=== PATIENT | female | born 1960 | race Two or more races ===

== ENCOUNTER → 2018-05-22 | Day surgery (SDC) | payer MEDICARE, OTHER ==
[~2018-05-22] VITALS: Ht 154.9 cm; Wt 69.9 kg
[~2018-05-22] MED LIST: ASPIR 8181 MG ORAL; Atropine Inj 1mg/10ml Syr IV PRN; BSS 15ml BTL ONE; BSS 500ml btl ONE; Bupivacaine 0.75% 30ml vial INJ ONE; D5 1/2NS 1,000 ML IV SCH; Dexamethasone 4mg/ml vial ONE; DiphenhydrAMINE 50mg/ml Inj IVP PRN; DiphenhydrAMINE 50mg/ml Inj ONE; EPINEPHrine 1mg/1ml Amp ONE; FAMOTIDINE20 MG ORAL; GABAPENTIN100 MG ORAL; HYDRALAZINE HCL50 MG ORAL; ISOSORBIDE MONO30 M1 PO; Insulin Human Regular 100units/ml 3ml IV SCH; Kenalog-10 5ml Inj ONE; Kenalog-40 1ml Vial ONE; LANTUS SOL100 UNIT/1 SUBQ; LOSARTAN POTASS50 MG ORAL; Labetalol 5mg/ml 20ml vial IV PRN; Lidocaine 2% MPF 5ml Vial INJ ONE; METHAZOLAMIDE50 MG ORAL; METOPROLOL TART50 M1 ORAL; Maxitrol Opth Oint 3.5gm ONE; Midazolam 2mg/2ml Inj IVP PRN; OCUFLOX5 ML RIGHT EYE; PANTOPRAZOLE SO40 MG ORAL; PREDNISOLONE ACE5 M1 RIGHT EYE; Povidone-Iodine 5% opth solution ONE; Pred Forte 1% Opth Susp 1ml ONE; Propofol 200mg/20ml IV ONE; RENA-VITE RX T1 EAC1 PO; RENVELA800 MG ORAL; Sodium Hyaluronate 10 mg/ml 0.85ml ONE; Tetracaine 0.5% Opth 4ml Soln ONE; VASCEPA1 GM PO; VELPHORO500 MG PO; VIGAMOX1 DROP RIGHT EYE; Vancomycin Intravitreal Inj IVITRE ONE; fentaNYL 100 mcg/2 mL IV PRN
--- NOTE | 2018-05-22 01:00 | Pre-op HX & Phy Repo 2 SIG ---
DATE OF ADMISSION: 05/22/2018 DATE OF SURGERY: 05/22/2018 PREOPERATIVE DIAGNOSIS: Endophthalmitis, right eye with vitreous opacification. BRIEF NOTE: This is a first [place] retinal admission for this patient, who is a very nice 57-year-old lady with a long and complicated ocular history involving diabetes, glaucoma, and diabetic retinopathy. PAST OCULAR HISTORY: Remarkable for bilateral cataract surgery in the past as well as previous tube shunt glaucoma surgery on the left. She had intravitreal injections in both eyes earlier this month and was seen to develop a significant hypopyon, intraocular pain, and vitreous opacification after the last Avastin injection. She presented at my office on 04/29/2018, which what appeared to be a significant endophthalmitis. Cultures were done as well as injection of intravitreal antibiotics. The anterior chamber reaction subsided nicely with clearing of the fibrin and hypopyon. Cultures were negative for infection, but did show what appeared to be white cells. She has had previous significant diabetic retinopathy with intraocular hemorrhaging and for this reason, is admitted for a vitrectomy to debulk the vitreous debris and to obtain additional cultures and possible reinjection of antibiotics. PAST MEDICAL HISTORY: Remarkable for renal failure and longstanding diabetes. MEDICATIONS: She is maintained on Velphoro 500 mg, losartan, SoloSTAR insulin, and famotidine as well as methazolamide. ALLERGIES: She has an allergy to penicillin. SOCIAL HISTORY: She does not smoke or drink. PHYSICAL EXAMINATION: Best vision at the time of the visit was bare light perception to no light perception in the right eye and hand motions in the left. The pressures were 14 and 12. The anterior segment on the right showed resorption of the hypopyon and most of the fibrin. Posterior chamber lens was seen in position. The left anterior segment was quiet. A valve was seen in place at the 2 o'clock position and lens implant noted. Fundus examination of the right eye was not possible because of severe vitreous opacification. The left eye similarly could not be seen because of vitreous debris. An ultrasound done on the right eye revealed mobile vitreous debris. The retina appeared attached without mass. ASSESSMENT: 1. Severe proliferative diabetic retinopathy, both eyes. 2. Status post purulent endophthalmitis, right eye. 3. Pseudophakia, both eyes. 4. History of glaucoma. PLAN: The plan is to perform a pars plana vitrectomy with exploration of endolaser as needed on the right. Cultures will be obtained and a decision will be made whether or not to reinject intravitreal antibiotics. The risks and benefits of surgery were gone over with the patient including potential for infection, inability to control infection, retinal detachment formation, the discovery of severe ocular ischemia, which may limit any visual recovery, and the possibility of loss of the eye. The risk of anesthesia was discussed. The patient understands and consents to the surgery, which will be performed on tomorrow morning. Clayton Sneed M.D. DR: ROBB JOB#: [id number] CC:
--- NOTE | 2018-05-22 06:35 | Anethesia Preoperative Eval ---
Anesthesia Pre-op PMH/ROS General Date of Evaluation: May 22, 2018 Time of Evaluation: 06:32 Anesthesiologist: sandi ASA Score: ASA 4 Mallampati Score Class I : Soft palate, uvula, fauces, pillars visible Class II: Soft palate, uvula, fauces visible Class III: Soft palate, base of uvula visible Class IV: Only hard plate visible Mallampati Classification: Class II Surgeon: nichol Diagnosis: endopthamitis od Surgical Procedure: pars plana vitrectomy w/ exploration endolaser Anesthesia History: none Family History: no anesthesia problems Allergies: Coded Allergies: PENICILLINS (Unverified Allergy, Unknown, 05/17/18) Medications: see eMAR Past Medical History Gastrointestinal/Genitourinary: Reports: CRI Endocrine: Reports: DM HEENT: Reports: cataract (L), cataract (R), glaucoma, other - diabetic retinopathy PSxH Narrative: bilateral cataract sx, left tube shunt glaucoma sx Anesthesia Pre-op Phys. Exam Physician Exam Last Vital Signs Date Time Temp Pulse Resp B/P (MAP) Pulse Ox O2 Delivery O2 Flow Rate FiO2 05/22/18 07:36 Room Air 05/22/18 06:52 97.0 65 20 165/72 (103) 97 97.0 Neurologic: CN 2-12 intact Cardiovascular: RRR Respiratory: CTA Gastrointestinal: S/NT/ND Airway Exam Mallampati Score: Class II MO: limited Neck: short TMD: 2fb ROM: limited Anesthesia Pre-op A/P Labs Labs Test 05/22/18 07:12 05/22/18 09:00 White Blood Count 6.4 K/UL (4.8-10.8) Red Blood Count 4.51 M/UL (4.20-5.40) Hemoglobin 13.0 G/DL (12.0-16.0) Hematocrit 41.1 % (37.0-47.0) Mean Corpuscular Volume 91 FL (80-99) Mean Corpuscular Hemoglobin 28.8 PG (27.0-31.0) Mean Corpuscular Hemoglobin Concent 31.6 G/DL (32.0-36.0) Red Cell Distribution Width 14.9 % (11.6-14.8) Platelet Count 106 K/UL (150-450) Mean Platelet Volume 10.0 FL (6.5-10.1) Neutrophils (%) (Auto) 76.0 % (45.0-75.0) Lymphocytes (%) (Auto) 10.0 % (20.0-45.0) Monocytes (%) (Auto) 8.0 % (1.0-10.0) Eosinophils (%) (Auto) 4.5 % (0.0-3.0) Basophils (%) (Auto) 1.4 % (0.0-2.0) Sodium Level 139 MMOL/L (136-145) Potassium Level 6.1 MMOL/L (3.5-5.1) Chloride Level 99 MMOL/L (98-107) Carbon Dioxide Level 35 MMOL/L (21-32) Anion Gap 5 mmol/L (5-15) Blood Urea Nitrogen 51 mg/dL (7-18) Creatinine 6.3 MG/DL (0.55-1.30) Estimat Glomerular Filtration Rate 6.9 mL/min (>60) Glucose Level 172 MG/DL (74-106) Calcium Level 10.1 MG/DL (8.5-10.1) Risk Assessment & Plan Assessment: asa4 Plan: patient is hyperkalemic. must be optimized prior to procedure Status Change Before Surgery: No Pre-Antibiotics Drug: Gale Estrella MD May 22, 2018 06:35
[2018-05-22] MEDS: Cyclopentolate 1% Opth Sol 2ml RIGHT EYE SCH ×3 (06:49→07:32)
[2018-05-22] MEDS: Vigamox Opth Soln 3ml RIGHT EYE SCH ×3 (06:50→07:33)
[2018-05-22] MEDS: Phenylephrine 2.5% Op 2ml Soln RIGHT EYE SCH ×3 (06:50→07:32)
[2018-05-22] MEDS: Flurbiprofen 0.03% Opth Sol 2.5ml RIGHT EYE SCH ×3 (06:50→07:33)
[2018-05-22 06:52] VITALS: BP 165/72
[2018-05-22 07:31] LABS: BASOPHILS % (AUTO) 1.4 % (0.0-2.0); EOSINOPHILS % (AUTO) 4.5 % (0.0-3.0); HEMATOCRIT 41.1 % (37.0-47.0); MEAN CORPUSCULAR VOLUME 91 FL (80-99); PLATELET COUNT 106 K/UL (150-450); RED BLOOD COUNT 4.51 M/UL (4.20-5.40); RED CELL DISTRIBUTION WIDTH 14.9 % (11.6-14.8); WHITE BLOOD COUNT 6.4 K/UL (4.8-10.8)
[2018-05-22 07:35] LABS: ANION GAP 5 mmol/L (5-15); BLOOD UREA NITROGEN 51 mg/dL (7-18); CALCIUM 10.1 MG/DL (8.5-10.1); CARBON DIOXIDE 35 MMOL/L (21-32); CHLORIDE 99 MMOL/L (98-107); CREATININE 6.3 MG/DL (0.55-1.30); SODIUM 139 MMOL/L (136-145)
[2018-05-22 07:36] LABS: POTASSIUM 6.1 MMOL/L (3.5-5.1)
--- NOTE | 2018-05-22 08:38 | Pre-Procedure Note/Attestation ---
Pre-Procedure Note/Attestation Complete Prior to Procedure Planned Procedure: right Procedure Narrative: PPV, cultures, intravitreal antibiotics, possible endolaser Right eye Indications for Procedure Pre-Operative Diagnosis: Endophthalmitis Right eye with vitreous opacification Attestation I attest that I discussed the nature of the procedure; its benefits; risks and complications; and alternatives (and the risks and benefits of such alternatives ), prior to the procedure, with the patient (or the patient's legal maintenance representative). I attest that, if there was a reasonable possibility of needing a blood transfusion, the patient (or the patient's legal maintenance representative) was given the [facility] standardized written summary, pursuant to the [place] Blood Safety Act ([place] Health and Safety Code # 1645, as amended). I attest that I re-evaluated the patient just prior to the surgery and that there has been no change in the patient's H&P, except as documented below: ELIZABETH WOLF May 22, 2018 08:38
--- NOTE | 2018-05-22 14:53 | Cardiology Report ---
APPROVED REPORT EKG Measurement Heart [id number] Normal sinus rhythm Left axis deviation Abnormal ECG
--- NOTE | 2018-05-29 17:45 | Pre-op HX & Phy Repo 2 SIG ---
DATE OF ADMISSION: 05/22/2018 NOTE: "POOR AUDIO QUALITY" REASON FOR EVALUATION: I was asked by Dr. Clayton Sneed to see this 57-year-old Ecuadorean-speaking female going for elective surgery on the right eye for endophthalmitis of the right eye. Please see history and physical by Dr. Clayton Sneed. The patient was evaluated. Chart was reviewed. The information was obtained from at bedside. PAST MEDICAL HISTORY AND REVIEW OF SYSTEMS: Remarkable for history of: 1. Diabetes mellitus, on insulin. 2. History of end-stage renal disease. The patient is on hemodialysis and last dialysis was done on 05/21/2018. 3. The patient has history of hypertension. 4. GERD. The patient denies history of chest pain, palpitation, or heart attack. Denies history of respiratory problem, asthma, or bronchitis. No history of GI bleeding. No history of thyroid problem or anemia. No hepatitis. PAST SURGICAL HISTORY: Hysterectomy for fibroids many years ago and has a shunt in the left hand. PRESENT MEDICATIONS: Baby aspirin, insulin, losartan, hydralazine, Pepcid, gabapentin, isosorbide, metoprolol, eyedrops, vitamin B complex, and . ALLERGIES: Penicillin and pollen causing allergic sinusitis. FAMILY HISTORY: Father was an alcoholic. Mother had diabetes mellitus. HABITS: No history of smoke or alcohol habit. No street drugs. PHYSICAL EXAMINATION: GENERAL: Alert, well-developed, well-nourished female in her 50s. VITAL SIGNS: Weight 70 kg, 5 feet 4 inches, BMI is 29.2 kg/m2. Blood pressure 165/72, temperature 97, pulse 65, respirations 20, and O2 saturation 97%. SKIN: Dry, pale, and warm. No rashes. LYMPH NODES: Not enlarged. HEENT: Head normocephalic. Ears clear, no discharge. Eyes, full description per Dr. Clayton Sneed. Mouth, clear and moist, no dentures, no discharge. NECK: Supple. No jugular venous distention. Carotids artery +2. Trachea midline. CHEST: No deformity or asymmetry. LUNGS: Clear to auscultation and percussion. No rales or rhonchi. HEART: Rate 65 and regular. No ectopy. No murmur. No S3 or S4. ABDOMEN: Soft. Benign. Liver and spleen are not enlarged. No palpable mass. No rebound. EXTREMITIES: No edema. No calf tenderness. Left arm AV shunt for dialysis. GENITOURINARY TRACT: No dysuria. The patient is on hemodialysis. NERVOUS SYSTEM: No asymmetry. No tremor. No nystagmus. DIAGNOSTIC DATA: ECG, normal sinus rhythm, 62 per minute, left axis deviation, ST-T wave abnormality, consider lateral ischemia. Fasting blood sugar . Potassium 6.1. The patient did not eat or drink from last night. To control the potassium level, the patient was given insulin regular 5 units IV push and IV changed to D5, also Lasix 20 mg IV push. IMPRESSION: 1. Endophthalmitis, right eye. 2. Hypertension. 3. Insulin-dependent diabetes mellitus. 4. Hyperkalemia. Rechecked potassium level in 40 minutes, level was 5.8. level was cancelled by myself and anesthesiologist. The patient . Thank you very much Dr. Sneed for privilege to participate in presurgical care of this interesting patient. Andrea Newberry M.D. DR: KULDIP JOB#: [id number] CC:
== END | disposition home or self-care (01) ==
LOC: SUR 06:14 → SDS 06:15 → EDSTATUS 08:30 → SUR 11:11
DX: H44.001 Unspecified purulent endophthalmitis, right eye (principal); Z53.09 Procedure and treatment not carried out because of other contraindication; E87.5 Hyperkalemia; E11.319 Type 2 diabetes mellitus with unspecified diabetic retinopathy without macular edema; Z88.0 Allergy status to penicillin; E11.3593 Type 2 diabetes mellitus with proliferative diabetic retinopathy without macular edema, bilateral; Z96.1 Presence of intraocular lens
CPT/HCPCS: 36415; 80048; 82962; 84132; 85025; 93005; J1815; J1940

== ENCOUNTER 2018-12-25 06:09 | Day surgery (SDC) | payer MEDICARE, OTHER ==
--- NOTE | 2018-12-24 17:45 | Pre-op HX & Phy Repo 2 SIG ---
DATE OF ADMISSION: 12/25/2018 DATE OF SURGERY: 12/25/2018 PREOPERATIVE DIAGNOSIS: Vitreous hemorrhage with posterior traction, left eye. BRIEF NOTE: This is the second [place] admission for the patient who is a very nice and unfortunate 58-year-old lady with longstanding severe proliferative diabetic retinopathy. Her past ocular history is remarkable for extensive laser treatment in both eyes and a prior valve placements in either eye for secondary glaucoma. She developed an endophthalmitis in the right eye after a prior surgery last year and underwent intravitreal injections on a subsequent vitrectomy, but we were unable to get reasonable vision back and this eye progressed in no light perception and hypotony. She had previous cataract and valve surgery in the right eye. She has a chronic vitreous hemorrhage with preretinal fibrosis, which is obscuring her vision. After a lengthy discussion with the family, it was felt that her best chance for some visual improvement would be a vitrectomy on the left with possible silicone oil placement. PAST MEDICAL HISTORY: Remarkable for severe diabetes present since 1994. She is also on dialysis. CURRENT MEDICATIONS: Include, Combigan, Systane gel, moxifloxacin, Velphoro, losartan, and Lantus. She is also on famotidine and methazolamide. ALLERGIES: She has an allergy to penicillin. PHYSICAL EXAMINATION: Best vision, there is no light perception in the right eye. Counting fingers at 2 feet in the left with pressures of 1 and 16. The anterior segment on the right showed an amaurotic pupil and residual hyphema roughly 5%. The left showed a reasonably clear anterior segment. Posterior chamber lenses were seen in either eye. Fundus on the right eye could not be seen. The left showed extensive preretinal fibrosis and chronic old vitreous debris and strands. B-Scan done on the left eye showed the retina to be essentially attached. There was a focal point of traction and attachment nasal to the optic nerve. General physical examination will be updated by Dr. Newberry. ASSESSMENT: Severe proliferative diabetic retinopathy, left eye with traction. PLAN: The plan is to perform a pars plana vitrectomy with membrane dissection, endolaser, and possible silicone oil and gas injection in the left eye if the patient can tolerate general anesthesia. She was not doing well with local sedation because of severe anxiety. The risks and benefits of surgery were gone over the patient with potential infection, recurrent detachment, hemorrhage, glaucoma, and the possibility of loss of the eye. The risk of anesthesia was also discussed and will be reiterated by the anesthesiologist. The patient understands and consents to surgery, which will be performed on tomorrow morning. Clayton Sneed M.D. DR: MARIAM JOB#: [id number] CC:
[2018-12-25] VITALS (11 sets, daily range): BP systolic 136–156; BP diastolic 60–71
[~2018-12-25] VITALS: Ht 154.9 cm; Wt 67.6 kg
[~2018-12-25 06:09] MED LIST changes: -Atropine Inj 1mg/10ml Syr IV PRN; -BSS 15ml BTL ONE; -BSS 500ml btl ONE; -Bupivacaine 0.75% 30ml vial INJ ONE; -D5 1/2NS 1,000 ML IV SCH; -Dexamethasone 4mg/ml vial ONE; -DiphenhydrAMINE 50mg/ml Inj IVP PRN; -DiphenhydrAMINE 50mg/ml Inj ONE; -EPINEPHrine 1mg/1ml Amp ONE; -Insulin Human Regular 100units/ml 3ml IV SCH; -Kenalog-10 5ml Inj ONE; -Kenalog-40 1ml Vial ONE; -Labetalol 5mg/ml 20ml vial IV PRN; -Lidocaine 2% MPF 5ml Vial INJ ONE; -Maxitrol Opth Oint 3.5gm ONE; -Midazolam 2mg/2ml Inj IVP PRN; -Povidone-Iodine 5% opth solution ONE; +Pred Forte 1% Opth Susp 1ml LEFT EYE SCH; -Pred Forte 1% Opth Susp 1ml ONE; -Propofol 200mg/20ml IV ONE; -Sodium Hyaluronate 10 mg/ml 0.85ml ONE; -Tetracaine 0.5% Opth 4ml Soln ONE; -Vancomycin Intravitreal Inj IVITRE ONE; -fentaNYL 100 mcg/2 mL IV PRN
[2018-12-25] MEDS ORDERED: EPINEPHrine 1mg/1ml Amp ONE (07:14)
[2018-12-25] MEDS ORDERED: Lidocaine 2% MPF 5ml Vial INJ ONE (07:14)
[2018-12-25] MEDS ORDERED: Maxitrol Opth Oint 3.5gm ONE (07:15)
[2018-12-25] MEDS ORDERED: Kenalog-40 1ml Vial ONE (07:15)
[2018-12-25] MEDS ORDERED: Tetracaine 0.5% Opth 4ml Soln ONE (07:15)
[2018-12-25] MEDS ORDERED: Bupivacaine 0.75% 30ml vial INJ ONE (07:15)
[2018-12-25] MEDS ORDERED: BSS 500ml btl ONE (07:15)
[2018-12-25] MEDS ORDERED: Kenalog-10 5ml Inj ONE (07:15)
[2018-12-25] MEDS ORDERED: BSS 15ml BTL ONE (07:15)
[2018-12-25] MEDS ORDERED: Pred Forte 1% Opth Susp 1ml ONE (07:15)
[2018-12-25] MEDS ORDERED: Povidone-Iodine 5% opth solution ONE (07:15)
[2018-12-25] MEDS ORDERED: Sodium Hyaluronate 10 mg/ml 0.85ml ONE (07:15)
[2018-12-25] MEDS ORDERED: Dexamethasone 4mg/ml vial ONE (07:15)
--- NOTE | 2018-12-25 08:01 | Pre-Procedure Note/Attestation ---
Pre-Procedure Note/Attestation Complete Prior to Procedure Planned Procedure: left Procedure Narrative: PPV, peel, laser, possible silicone oil Left eye Indications for Procedure Pre-Operative Diagnosis: Poor vision L eye. Heme and traction Attestation I attest that I discussed the nature of the procedure; its benefits; risks and complications; and alternatives (and the risks and benefits of such alternatives ), prior to the procedure, with the patient (or the patient's legal pharmacy sales representative). I attest that, if there was a reasonable possibility of needing a blood transfusion, the patient (or the patient's legal pharmacy sales representative) was given the [place] [facility] of [facility] Services standardized written summary, pursuant to the [place] Blood Safety Act ([place] Health and Safety Code # 1645, as amended). I attest that I re-evaluated the patient just prior to the surgery and that there has been no change in the patient's H&P, except as documented below: Clayton Sneed MD Dec 25, 2018 08:00
[2018-12-25] MEDS: Phenylephrine 2.5% Op 2ml Soln LEFT EYE SCH ×3 (08:08→08:40)
[2018-12-25] MEDS: Cyclopentolate 1% Opth Sol 2ml LEFT EYE SCH ×3 (08:08→08:39)
[2018-12-25] MEDS: Vigamox Opth Soln 3ml LEFT EYE SCH ×3 (08:09→08:40)
[2018-12-25] MEDS: Flurbiprofen 0.03% Opth Sol 2.5ml LEFT EYE SCH ×3 (08:09→08:40)
[2018-12-25] MEDS ORDERED: fentaNYL 100 mcg/2 mL IV ONE (08:12)
[2018-12-25] MEDS ORDERED: Midazolam 2mg/2ml Inj ONE (08:12)
[2018-12-25 08:35] LABS: BASOPHILS % (AUTO) 1.3 % (0.0-2.0); EOSINOPHILS % (AUTO) 8.1 % (0.0-3.0); HEMATOCRIT 39.2 % (37.0-47.0); HEMOGLOBIN 12.7 G/DL (12.0-16.0); LYMPHOCYTES % (AUTO) 14.4 % (20.0-45.0); MEAN CORPUSCULAR VOLUME 97 FL (80-99); MONOCYTES % (AUTO) 7.5 % (1.0-10.0); NEUTROPHILS % (AUTO) 68.7 % (45.0-75.0); PLATELET COUNT 137 K/UL (150-450); RED BLOOD COUNT 4.05 M/UL (4.20-5.40); RED CELL DISTRIBUTION WIDTH 12.7 % (11.6-14.8); WHITE BLOOD COUNT 5.9 K/UL (4.8-10.8)
[2018-12-25 08:44] LABS: ANION GAP 8 mmol/L (5-15); BLOOD UREA NITROGEN 46 mg/dL (7-18); CALCIUM 10.1 MG/DL (8.5-10.1); CARBON DIOXIDE 31 MMOL/L (21-32); CHLORIDE 101 MMOL/L (98-107); CREATININE 5.5 MG/DL (0.55-1.30); POTASSIUM 5.5 MMOL/L (3.5-5.1); SODIUM 140 MMOL/L (136-145)
[2018-12-25] MEDS ORDERED: Propofol 200mg/20ml IV ONE (09:00)
[2018-12-25] MEDS ORDERED: NS Irrig 1000ml ONE (09:00)
[2018-12-25] MEDS ORDERED: Sterile Water Irrig 1000ml IRRIG ONE (09:00)
--- NOTE | 2018-12-25 09:53 | Anethesia Preoperative Eval ---
Anesthesia Pre-op PMH/ROS General Date of Evaluation: Dec 25, 2018 Time of Evaluation: 08:42 Anesthesiologist: Patty ASA Score: ASA 3 Mallampati Score Class I : Soft palate, uvula, fauces, pillars visible Class II: Soft palate, uvula, fauces visible Class III: Soft palate, base of uvula visible Class IV: Only hard plate visible Mallampati Classification: Class II Surgeon: Nedra Diagnosis: L eye vitreous hemorrhage Surgical Procedure: L eye PPV laser treatment Anesthesia History: none Family History: no anesthesia problems Allergies: Coded Allergies: PENICILLINS (Unverified Allergy, Unknown, 05/17/18) Medications: see eMAR Patient NPO?: Yes Past Medical History Cardiovascular: Reports: HTN; Denies: CAD, [place], valve dz, arrhythmia, other Pulmonary: Denies: asthma, COPD, RACHELLE, other Gastrointestinal/Genitourinary: Reports: GERD, ESRD - on HD; Denies: CRI, other Neurologic/Psychiatric: Reports: depression/anxiety; Denies: dementia, CVA, TIA, other Endocrine: Reports: DM - on insulin HEENT: Reports: cataract (L), cataract (R) - s/p Sx; Denies: glaucoma, CHEVAK (L), CHEVAK (R), other Hematology/Immune: Reports: anemia; Denies: DVT, bleeding disorder, other Musculoskeletal/Integumentary: Reports: DJD; Denies: OA, RA, DDD, edema, other Other: other - overweight PMH Narrative: as above PSxH Narrative: Hysterectomy, bilateral cataracts retinal Sx Anesthesia Pre-op Phys. Exam Physician Exam Last Vital Signs Date Time Temp Pulse Resp B/P (MAP) Pulse Ox O2 Delivery O2 Flow Rate FiO2 12/25/18 08:12 Room Air 12/25/18 08:00 97.7 53 20 150/60 97 Constitutional: NAD Neurologic: CN 2-12 intact Cardiovascular: RRR, no M/R/G Respiratory: CTA Gastrointestinal: S/NT/ND Airway Exam Mallampati Score: Class II MO: limited Neck: short ROM: limited Teeth: missing Dentures: no upper, no lower Anesthesia Pre-op A/P Labs Hematology Test 12/25/18 08:23 White Blood Count 5.9 K/UL (4.8-10.8) Red Blood Count 4.05 M/UL (4.20-5.40) L Hemoglobin 12.7 G/DL (12.0-16.0) Hematocrit 39.2 % (37.0-47.0) Mean Corpuscular Volume 97 FL (80-99) Mean Corpuscular Hemoglobin 31.3 PG (27.0-31.0) H Mean Corpuscular Hemoglobin Concent 32.3 G/DL (32.0-36.0) Red Cell Distribution Width 12.7 % (11.6-14.8) Platelet Count 137 K/UL (150-450) L Mean Platelet Volume 8.7 FL (6.5-10.1) Neutrophils (%) (Auto) 68.7 % (45.0-75.0) Lymphocytes (%) (Auto) 14.4 % (20.0-45.0) L Monocytes (%) (Auto) 7.5 % (1.0-10.0) Eosinophils (%) (Auto) 8.1 % (0.0-3.0) H Basophils (%) (Auto) 1.3 % (0.0-2.0) Chemistry Test 12/25/18 08:23 Sodium Level 140 MMOL/L (136-145) Potassium Level 5.5 MMOL/L (3.5-5.1) H Chloride Level 101 MMOL/L (98-107) Carbon Dioxide Level 31 MMOL/L (21-32) Anion Gap 8 mmol/L (5-15) Blood Urea Nitrogen 46 mg/dL (7-18) H Creatinine 5.5 MG/DL (0.55-1.30) H Estimat Glomerular Filtration Rate 8.0 mL/min (>60) Glucose Level 110 MG/DL (74-106) H Calcium Level 10.1 MG/DL (8.5-10.1) Accucheck 119 at admission Studies Pre-op Studies: EKG - SR Risk Assessment & Plan Assessment: ASA 3 Plan: GA with LMA surgeon request Status Change Before Surgery: No Pre-Antibiotics Drug: none Cisco Brambila MD Dec 25, 2018 09:53
[2018-12-25] MEDS ORDERED: fentaNYL 100 mcg/2 mL IV PRN (10:00)
--- NOTE | 2018-12-25 10:29 | Brief Operative Note ---
Immediate Post Operative Note Operative Note Chief Complaint: Clouds in vision L eye Pre-op Diagnosis: Poor vision L eye. Heme and traction Procedure: PPV, membrane peel, Endolaser 2422 spots, endocautery L eye Post-op Diagnosis: Same as preop Post-op Diagnosis: same as pre-op Surgeon: nichol Anesthesiologist: Patty Anesthesia: general Specimen: none Complications: none Condition: stable Fluids: Per anesthesia Estimated Blood Loss: none Drains: none Implant(s) used?: No Clayton Sneed MD Dec 25, 2018 10:29
--- NOTE | 2018-12-25 10:31 | Immediate Post-Op Evaluation ---
Immediate Post-Op Evalulation Immediate Post-Op Evalulation Procedure: L eye PPV, membrane peel laser treatment Date of Evaluation: Dec 25, 2018 Time of Evaluation: 10:30 IV Fluids: 300 Blood Products: none Estimated Blood Loss: min Urinary Output: none Blood Pressure Systolic: 137 Blood Pressure Diastolic: 64 Pulse Rate: 68 Respiratory Rate: 20 O2 Sat by Pulse Oximetry: 99 Temperature (Fahrenheit): 97.7 Pain Score (1-10): 1 Nausea: No Vomiting: No Complications none Patient Status: reacts, patent, none Hydration Status: adequate Cisco Brambila MD Dec 25, 2018 10:31
--- NOTE | 2018-12-25 12:00 | NUR ---
No urine output noted. Patient has anuria secondary renal failure and on hemodialysis 3x a week.
--- NOTE | 2018-12-25 15:15 | Cardiology Report ---
APPROVED REPORT EKG Measurement Heart [id number] Sinus bradycardia Abnormal ECG
--- NOTE | 2018-12-25 17:01 | Pre-op HX & Phy Repo 2 SIG ---
DATE OF ADMISSION: 12/25/2018 PRESURGICAL INTERNAL MEDICINE HISTORY AND PHYSICAL: REASON FOR EVALUATION: I was asked by Dr. Clayton Sneed to see this 58-year-old female, who is going for elective surgery on the left eye. The patient has vitreous hemorrhage, left eye. Please see full Ophthalmology History and Physical by Dr. Clayton Sneed. The patient was evaluated and chart was reviewed at [facility] outpatient surgery department. The patient is Emirati-speaking and has a help from her at bedside. PAST MEDICAL HISTORY: Remarkable for hypertension; diabetes mellitus, insulin dependent; end-stage renal disease, on hemodialysis, last dialysis yesterday 12/24/2018. The patient is on dialysis for the last 4 years. Peripheral neuropathy, diabetic both feet dermatitis stasis. No productive cough, bronchitis. History of anemia. No history of chest pain, palpitation, or heart attack. History of thyroid problem non treated. Denies history of stomach problem. No hepatitis. Some stomach acid reflux. PAST SURGICAL HISTORY: Hysterectomy, eye surgery last year, appendectomy. FAMILY HISTORY: Father from liver cirrhosis from alcoholism and mother had diabetes mellitus. ALLERGIES: To penicillin, itching, rashes. PRESENT MEDICATIONS: Lantus 16 units in the evening, losartan 50 mg daily, hydralazine 50 mg, metoprolol 50 mg, Marlene-Titus, pantoprazole 40 mg, baby aspirin 81 mg daily, eye drops, Tylenol, Motrin p.r.n. HABITS: The patient denies history of alcohol or smoking. The patient is also taking gabapentin p.r.n. PHYSICAL EXAMINATION: GENERAL: The patient is alert 58-year-old female. Weight 157 pounds and 5 feet 1 inch tall. BMI is 28.2. VITAL SIGNS: Blood pressure 150/60, temperature 97.7, pulse 55, respirations 20, O2 saturation 97%. SKIN: Warm to touch. Both feet and ankle venous status dermatitis. No ulcers or rashes. HEENT: Head normocephalic. Ears clear. No discharge. Eyes, full description per Dr. Clayton Sneed. Mouth has dentures upper and lower. Mucous moist, clear. Tongue midline. NECK: Supple. No jugular venous distention. Carotids artery +2. Trachea in the midline. CHEST: Mild kyphosis. LUNGS: Clear to auscultation. No rales or rhonchi. HEART: Regular rate, 55. No ectopy. No murmur. No S3 or S4. ABDOMEN: Soft. Obese. Liver, spleen not enlarged. EXTREMITIES: No edema. No calf tenderness. Stasis dermatitis both feet and ankle. GENITOURINARY TRACT: The patient is on dialysis and post hysterectomy. CVA nontender. NERVOUS SYSTEM: Peripheral diabetic neuropathy. No tremor or nystagmus. The patient has AV shunt of the left brachial. DIAGNOSTIC DATA: ECG, sinus bradycardia 56 per minute, ST-T wave abnormality. Consider lateral ischemia. LABORATORY DATA: Fast blood sugar, fingerstick 101. White blood cells, 5.9, hemoglobin 12.7, hematocrit 39.2. Sodium 140, potassium 5.5, chloride 101, BUN 46, creatinine 5.5, glucose 110, and calcium 10.1. IMPRESSION: 1. Vitreous hemorrhage, left eye. 2. Hypertension. 3. Insulin-dependent diabetes mellitus. 4. End-stage renal disease, on dialysis, last yesterday 12/24/2018. 5. Peripheral diabetic neuropathy. 6. Both feet and ankle stasis dermatitis. 7. Hyperkalemia. 8. Sinus bradycardia with ST-T wave abnormality and lateral ischemia. The patient did not eat or drink from last night. PLAN: Pars plana membrane peel, silicone oil injection, left eye per Dr. Clayton Sneed. CONCLUSION: The patient is a 58-year-old female, blind has multiple medical problems include insulin-dependent diabetes mellitus, EKG changes, history of hypertension. The patient dialyzed yesterday. Potassium still 5.5, which will be acceptable for surgery. The patient did not eat or drink from last night. The patient's condition optimized for surgery. Thank you very much, Dr. Sneed, for privilege to participate in presurgical care of this interesting patient. Andrea Newberry M.D. DR: DWIGHT JOB#: [id number] CC:
[2018-12-25] MEDS ORDERED: HYDROcodone/Acetamin 5/325 tab ORAL PRN (18:01)
--- NOTE | 2018-12-25 19:01 | Operative Note - Dictated ---
DATE OF OPERATION: 12/25/2018 PREOPERATIVE DIAGNOSIS: Vitreous hemorrhage with traction, left eye. POSTOPERATIVE DIAGNOSIS: Vitreous hemorrhage with traction, left eye. PROCEDURES: 1. Pars plana vitrectomy. 2. Membrane peel. 3. Endo cautery. 4. Endolaser, left eye. SURGEON: Clayton Sneed M.D. ICT SUPPORT TECHNICIANS: None. ANESTHESIA: LMA general. ANESTHESIOLOGIST: Cisco Brambila M.D. JUSTIFICATION FOR SURGERY: This 58-year-old lady with a long history of severe proliferative retinopathy has complained of clouds in the vision of her left eye for some time. She has a nonclearing vitreous hemorrhage with traction. BRIEF NOTE: The patient was brought to the operating room and placed on operating room table in supine position. After a time-out was performed and agreed upon by the staff, general LMA anesthesia was induced by Dr. Brambila. Retrobulbar and Van Lint blocks were then given to the left eye to limit intraoperative anesthesia and postoperative pain. She was then prepped and draped in normal manner. A lid speculum was inserted into the left eye. Using a 23-gauge trocar system, cannulas were placed in all except infranasal quadrant. Infusion secured inferotemporally. Vitrectomy was begun posterior to the lens implant. A dense, white cloudy vitreous was removed initially. A central core vitrectomy was done followed by peripheral vitrectomy leaving a small vitreous skirt. Membranous attachments to the retina were noted along the inferior to the optic nerve, outside of the arcades and along the supratemporal arcade at two to three sites. These areas were gently dissected and lifted clear with gentle suction and the vitreous cutter. Small bleeders were controlled with Endo cautery. Vitrectomy was carried further peripherally leaving a very small vitreous skirt. Scleral depression showed no peripheral breaks, tears, or detachment. The retina appeared to have no prior laser treatment. The endolaser was brought into the eye and a power of 0.3 staples, duration 0.2 seconds, a total of 2422 lesions were applied in a broad area extending from outside the arcades to the pars plana. Areas of traction were surrounded with at least three rows of laser. The macula was noted to be completely flat without posterior lifted. The nerve showed some cupping and pallor, but otherwise was benign. At the conclusion of this maneuver, the pressure was lowered and no oozing was seen from any of the previously cauterized vessels. The cannulas were removed from the eye superiorly and each wound closed with 8-0 Vicryl suture with the knots buried. The eye was inflated and the inferotemporal infusion cannula was removed and this wound was closed in a similar fashion. Subconjunctival Decadron and gentamicin were then injected inferiorly and topical atropine drops, prednisolone drops, Vigamox drops, and Maxitrol ointment were instilled. The eye was patched and shielded, and the patient was taken to Recovery in excellent condition. There were no complications. Clayton Sneed M.D. DR: RAUL JOB#: [id number] CC: Clayton Sneed M.D.; Fax#: [phone]
== END 2018-12-25 12:10 | disposition home or self-care (01) ==
LOC: SUR 06:09
DX: H43.12 Vitreous hemorrhage, left eye (principal); H43.822 Vitreomacular adhesion, left eye; E11.3592 Type 2 diabetes mellitus with proliferative diabetic retinopathy without macular edema, left eye; E11.22 Type 2 diabetes mellitus with diabetic chronic kidney disease; N18.6 End stage renal disease; Z99.2 Dependence on renal dialysis; E11.40 Type 2 diabetes mellitus with diabetic neuropathy, unspecified; Z79.4 Long term (current) use of insulin; I87.2 Venous insufficiency (chronic) (peripheral); K21.9 Gastro-esophageal reflux disease without esophagitis; F32.9 Major depressive disorder, single episode, unspecified; F41.9 Anxiety disorder, unspecified; D64.9 Anemia, unspecified; M19.90 Unspecified osteoarthritis, unspecified site; E66.3 Overweight; E87.5 Hyperkalemia; R00.1 Bradycardia, unspecified; Z90.710 Acquired absence of both cervix and uterus
CPT/HCPCS: 36415; 67042; 80048; 82962; 85025; 93005; J0171; J1100; J2250; J2704; J3010; J3470; J3490; 94003; 94150

== ENCOUNTER 2019-01-06 06:47 | Inpatient (IN) | payer MEDICARE, OTHER ==
[~2019-01-06] VITALS: Ht 154.9 cm; Wt 71.2 kg
[2019-01-06] VITALS (15 sets, daily range): BP systolic 87–170; BP diastolic 48–97
[2019-01-06] MEDS: Heparin 5000 units/ml inj SUBQ SCH ×3 (01:30→21:00)
[~2019-01-06 06:47] MED LIST changes: +Avastin 10mg Inj IVITRE ONE; -Pred Forte 1% Opth Susp 1ml LEFT EYE SCH
[2019-01-06] MEDS ORDERED: Pred Forte 1% Opth Susp 1ml LEFT EYE SCH (07:00)
[2019-01-06] MEDS ORDERED: BSS 500ml btl ONE (07:04)
[2019-01-06] MEDS ORDERED: Lidocaine 2% MPF 5ml Vial INJ ONE (07:04)
[2019-01-06] MEDS ORDERED: Pred Forte 1% Opth Susp 1ml ONE (07:04)
[2019-01-06] MEDS ORDERED: Bupivacaine 0.75% 30ml vial INJ ONE (07:04)
[2019-01-06] MEDS ORDERED: Tetracaine 0.5% Opth 4ml Soln ONE (07:04)
[2019-01-06] MEDS ORDERED: BSS 15ml BTL ONE (07:04)
[2019-01-06] MEDS ORDERED: Povidone-Iodine 5% opth solution ONE (07:04)
[2019-01-06] MEDS ORDERED: Maxitrol Opth Oint 3.5gm ONE (07:04)
[2019-01-06] MEDS ORDERED: Dexamethasone 4mg/ml vial ONE (07:05)
[2019-01-06] MEDS ORDERED: EPINEPHrine 1mg/1ml Amp ONE (07:19)
[2019-01-06] MEDS ORDERED: Midazolam 2mg/2ml Inj ONE (07:34)
[2019-01-06] MEDS ORDERED: Propofol 200mg/20ml IV ONE (07:35)
[2019-01-06] MEDS: Vigamox Opth Soln 3ml LEFT EYE SCH ×3 (07:39→08:04)
[2019-01-06] MEDS: Phenylephrine 2.5% Op 2ml Soln LEFT EYE SCH ×3 (07:39→08:03)
[2019-01-06] MEDS: Cyclopentolate 1% Opth Sol 2ml LEFT EYE SCH ×3 (07:39→08:03)
[2019-01-06] MEDS: Flurbiprofen 0.03% Opth Sol 2.5ml LEFT EYE SCH ×3 (07:39→08:04)
--- NOTE | 2019-01-06 07:40 | NUR ---
IV NS WAS STARTED BY YAMILETH SILVERIO RN. NO S/S OF INFILTRATION. K WAS DRAWN,PENDING RESULT.
--- NOTE | 2019-01-06 07:40 | Pre-Procedure Note/Attestation ---
Pre-Procedure Note/Attestation Complete Prior to Procedure Planned Procedure: left Procedure Narrative: PPV, endolaser, silicone oil injection Left eye Indications for Procedure Pre-Operative Diagnosis: Posterior retinal detachment OS Attestation I attest that I discussed the nature of the procedure; its benefits; risks and complications; and alternatives (and the risks and benefits of such alternatives ), prior to the procedure, with the patient (or the patient's legal signs sales representative). I attest that, if there was a reasonable possibility of needing a blood transfusion, the patient (or the patient's legal signs sales representative) was given the [facility] standardized written summary, pursuant to the [place] Blood Safety Act ([place] Health and Safety Code # 1645, as amended). I attest that I re-evaluated the patient just prior to the surgery and that there has been no change in the patient's H&P, except as documented below: Clayton Sneed MD Jan 06, 2019 07:40
[2019-01-06] MEDS ORDERED: LR 1000ml 1,000 ML IVLG SCH (09:37)
--- NOTE | 2019-01-06 09:43 | Anethesia Preoperative Eval ---
Anesthesia Pre-op PMH/ROS General Date of Evaluation: Jan 06, 2019 Time of Evaluation: 09:28 Anesthesiologist: Shanti ASA Score: ASA 3 Mallampati Score Class I : Soft palate, uvula, fauces, pillars visible Class II: Soft palate, uvula, fauces visible Class III: Soft palate, base of uvula visible Class IV: Only hard plate visible Mallampati Classification: Class II Surgeon: Nedra Diagnosis: Retinal Detachment OS Surgical Procedure: Vitrectomy OS Anesthesia History: none Family History: no anesthesia problems Allergies: Coded Allergies: PENICILLINS (Unverified Allergy, Severe, 01/03/19) RASH Medications: see eMAR Patient NPO?: Yes Past Medical History Cardiovascular: Reports: HTN Gastrointestinal/Genitourinary: Reports: GERD, ESRD Endocrine: Reports: DM HEENT: Reports: cataract (L), cataract (R) Hematology/Immune: Reports: anemia Other: obesity - BMI 31 PSxH Narrative: SWAPNA, A/V Shunt Anesthesia Pre-op Phys. Exam Physician Exam Last Vital Signs Date Time Temp Pulse Resp B/P (MAP) Pulse Ox O2 Delivery O2 Flow Rate FiO2 01/06/19 07:44 Room Air 01/06/19 07:20 97.0 59 20 138/64 97 Constitutional: NAD Neurologic: CN 2-12 intact Cardiovascular: RRR Respiratory: CTA Gastrointestinal: S/NT/ND Airway Exam Mallampati Score: Class II MO: limited ROM: limited Teeth: missing Dentures: upper, lower Anesthesia Pre-op A/P Labs Chemistry Test 01/06/19 07:40 Potassium Level 5.5 MMOL/L (3.5-5.1) H Risk Assessment & Plan Assessment: ASA 3 Plan: GA Status Change Before Surgery: Nilo Simmons MD Jan 06, 2019 09:43
[2019-01-06] MEDS ORDERED: HYDROcodone/Acetamin 7.5/325 tab ORAL PRN (09:45)
[2019-01-06] MEDS ORDERED: Midazolam 2mg/2ml Inj IVP PRN (09:45)
[2019-01-06] MEDS ORDERED: HYDROcodone/Acetamin 5/325 tab ORAL PRN ×2 (09:45→13:00)
[2019-01-06] MEDS ORDERED: Atropine Sulfate 0.4mg/ml inj IVP PRN (09:45)
[2019-01-06] MEDS ORDERED: Metoclopramide 10mg/2ml Inj IVP PRN (09:45)
[2019-01-06] MEDS ORDERED: Meperidine 50mg/ml Inj(FOR RIGORS ONLY) IVP PRN (09:45)
[2019-01-06] MEDS ORDERED: oxyCODONE HCL/Acetaminophen 5/325mg ORAL PRN (09:45)
[2019-01-06] MEDS ORDERED: LORazepam Inj 2mg/ml 1ml IV PRN (09:45)
[2019-01-06] MEDS ORDERED: fentaNYL 100 mcg/2 mL IV PRN (09:45)
[2019-01-06] MEDS ORDERED: Hydromorphone 0.5mg/0.5ml inj IVP PRN (09:45)
[2019-01-06] MEDS ORDERED: DiphenhydrAMINE 50mg/ml Inj IVP PRN (09:45)
--- NOTE | 2019-01-06 11:15 | NUR ---
NURSE NOTES: Patient is a direct admit from surgery. Came in for posterior vitrectomy, and surgery not done due to desaturation . Patient orally intubated at 7/22 lip line.AV shunt URMILA bruit and thrill present, Right wrist peripheral line patent no s/s infiltration.Responsive to deep pain, kept clen and dry.Dr Burt paged for admitting order.Kept clean,dry and comfortable.On close monitoring in ICU.
--- NOTE | 2019-01-06 11:16 | Immediate Post-Op Evaluation ---
Immediate Post-Op Evalulation Immediate Post-Op Evalulation Procedure: Vitrectomy OD Date of Evaluation: Jan 06, 2019 Time of Evaluation: 11:25 IV Fluids: 500 NS Blood Products: 0 Estimated Blood Loss: 0 Urinary Output: 0 Blood Pressure Systolic: 129 Blood Pressure Diastolic: 89 Pulse Rate: 73 Respiratory Rate: 18 O2 Sat by Pulse Oximetry: 100 Temperature (Fahrenheit): 97.6 Pain Score (1-10): 0 Nausea: No Vomiting: No Complications 02 saturation dropped after induction, hr from 56-40, atropine 2mg given without much effect, then epinephrine given 15mcgs, to 100 mcgs. Xray taken some pulmonary infiltrates, mild left pleural effusion. Now BP is 129/84 02 sat= 100, HR=73. Pt is reacting as she coughs on the endotracheal tube. Await extubation. Patient Status: reacts, patent, ventilated, none Hydration Status: adequate Nilo Moser MD Jan 06, 2019 11:16
[2019-01-06] MEDS ORDERED: Albuterol/Ipratropium 3ml neb HHN PRN (11:30)
[2019-01-06] MEDS ORDERED: Morphine Sulfate 4mg/ml Inj (IV USE ONLY) IVP PRN (11:30)
--- NOTE | 2019-01-06 11:34 | Pulmonolgy Critical Care Note ---
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 with: nurses Critical Care - Objective Last 24 Hour Vital Signs Date Time Temp Pulse Resp B/P (MAP) Pulse Ox O2 Delivery O2 Flow Rate FiO2 01/06/19 11:17 74 28 Mechanical Ventilator 50.0 100 01/06/19 11:16 73 18 100 01/06/19 11:12 73 28 100 01/06/19 07:44 Room Air 01/06/19 07:20 97.0 59 20 138/64 97 Room Air Status: sedated Condition: critical HEENT: atraumatic Neck: full ROM Lungs: clear Heart: HR/BP stable, regular Abdomen: non-tender, feeding tube Extremities: no C/C/E, edema Accucheck: 111 Critical Care - Subjective ROS Limited/Unobtainable: Yes ICU Day: 1 Interval Events: 58 year old female with hx of CAD, HTN, DM, ESRF on HD was having an eye procedure today at [facility]) when she dany down as low as low as 6 beats / minute and her saturation dropped to 60's. She responded promptly to Atropine and gained her pulse. She is transferred to ICU for further management. EKG Rhythm: Sinus Rhythm FI02: 100 Vent Support Breath Rate: 16 Vent Support Mode: AC Vent Tidal Volume: 500 Sputum Amount: None PEEP: 5.0 PIP: 36 ET-Tube: 7.0 ET Position: 22 Labs: Laboratory Tests Test 01/06/19 07:40 Potassium Level 5.5 MMOL/L (3.5-5.1) Mirza Caputo MD Jan 06, 2019 11:34
--- NOTE | 2019-01-06 12:10 | NUR ---
NURSE NOTES: at bedside, seen by Dr Rivera, will follow up with new order.HOB elevated to prevent aspiration
[2019-01-06] MEDS ORDERED: Nitroglycerin Subl 0.4mg tab SL PRN (12:30)
--- NOTE | 2019-01-06 13:14 | NUR ---
NURSE NOTES: Eliseo Bhat, pharmacist, no need to transfer medication gain in ICU, since Dr Burt orders was typed when pt already on the unit
[2019-01-06] MEDS: LORazepam Inj 2mg/ml 1ml IV PRN (13:22)
--- NOTE | 2019-01-06 14:02 | NUR ---
NURSE NOTES: Patient turned and repositioned.Kept clean and dry.HOB elevated to prevent aspiration.Will continue to monitor
--- NOTE | 2019-01-06 15:02 | Brief Operative Note ---
Immediate Post Operative Note Operative Note Chief Complaint: Central blurred vision OS Pre-op Diagnosis: Posterior retinal detachment OS Procedure: Not performed. Patient had difficulty with O2 sat after initiation of LMA. Please refer to anesthesia note. Post-op Diagnosis: Procedure not performed Surgeon: Nedra Anesthesiologist: Shanti Anesthesia: general Specimen: none Complications: yes - Procedure not performed. Low O2 sat, rhythm issuses. ? ID. Patient moved to ICU Condition: unstable Fluids: Per Anesthesia Estimated Blood Loss: none Drains: none Implant(s) used?: No Clayton Sneed MD Jan 06, 2019 15:02
[2019-01-06] MEDS: D5 1/2NS 1,000 ML IV SCH (15:37)
--- NOTE | 2019-01-06 15:59 | Diagnostic Imaging Report ---
Indication: Post intubation Technique: One view of the chest Comparison: none Findings: There is an endotracheal tube in satisfactory position, tip projecting approximately 4 cm above the brigid. There is bilateral interstitial edema as well as possibly some left suprahilar airspace edema. There is suggestion of a small left pleural effusion. The heart is borderline enlarged. Impression: Satisfactory endotracheal intubation Evidence of cardiomegaly with bilateral pulmonary interstitial and possibly airspace edema and small left pleural effusion
--- NOTE | 2019-01-06 16:09 | NUR ---
NURSE NOTES: Patient asleep, vital stable at this time. Turned and repositioned. Mouth care done.Seen by Dr Young, will follow up news orders. Kept close monitoring
[2019-01-06] MEDS ORDERED: NovoLOG Insulin Flexpen SUBQ SCH ×2 (16:30→19:15)
--- NOTE | 2019-01-06 17:16 | Consultation ---
Consult Note Consult Note I was asked to evaluate the patient for dialysis management- Patient seen in ICU Intubated by side- states that patient been on HD for 4 years Has left arm fistula due for dialysis Sharon Bower Sat 58 year old female with hx of CAD, HTN, DM, ESRF on HD was having an eye procedure today at [facility] when she dany down as low as low as 6 beats / minute and her saturation dropped to 60's. She responded promptly to Atropine and gained her pulse. She is transferred to ICU for further management. Assessment/Plan ESRD s/p Cardiac Arrest Respiratory failure on Vent DM stat Blood chemistries Albumin bolus Protonix IV dialysis as needed when hemodynamically stable per cardiology and pulmonary advise Wade Rivera MD Jan 06, 2019 17:16
--- NOTE | 2019-01-06 17:28 | Internal Med Progress Note ---
Subjective Physician Name HectorGlenn Attending Physician Mirza Burt MD Current Medications Medications (Trade) Dose Ordered Sig/Steven Route PRN Reason Start Time Stop Time Status Last Admin Dose Admin Acetaminophen (Tylenol) 650 mg Q4H PRN ORAL Mild Pain (Pain Scale 1-3) 01/06/19 13:00 02/05/19 12:59 Acetaminophen (Tylenol) 650 mg Q4H PRN ORAL T>100.5 01/06/19 13:00 02/05/19 12:59 Acetaminophen/ Hydrocodone Bitart ([place] 5/325) 1 tab Q4H PRN ORAL Moderate Pain (Pain Scale 4-6) 01/06/19 13:00 01/13/19 12:59 Albuterol/ Ipratropium (Albuterol/ Ipratropium) 3 ml Q4H PRN HHN Shortness of Breath 01/06/19 11:30 01/11/19 11:29 Dextrose (Dextrose 50%) 25 ml Q30M PRN IV Hypoglycemia 01/06/19 13:00 02/05/19 12:59 Dextrose (Dextrose 50%) 50 ml Q30M PRN IV Hypoglycemia 01/06/19 13:00 02/05/19 12:59 Dextrose/Sodium Chloride 1,000 ml @ 50 mls/hr Q20H IV 01/06/19 13:00 02/05/19 12:59 01/06/19 15:37 Heparin Sodium (Porcine) (Heparin 5000 units/ml) 5,000 units EVERY 12 HOURS SUBQ 01/06/19 21:00 02/05/19 20:59 UNV Insulin Aspart (NovoLOG) BEFORE MEALS AND HS SUBQ 01/06/19 16:30 02/05/19 16:29 Lorazepam (Ativan 2mg/ml 1ml) 2 mg Q2H PRN IV agitation 01/06/19 11:30 01/13/19 11:29 01/06/19 13:22 Morphine Sulfate (Morphine Sulfate) 4 mg Q4H PRN IVP Severe Pain (Pain Scale 7-10) 01/06/19 11:30 01/13/19 11:29 01/06/19 13:23 Nitroglycerin (Ntg) 0.4 mg Q5MIN X 3 DOSES PRN SL Prn Chest Pain 01/06/19 12:30 02/05/19 12:29 Ondansetron HCl (Zofran) 4 mg Q4H PRN IVP Nausea & Vomiting 01/06/19 13:00 02/05/19 12:59 Allergies: Coded Allergies: PENICILLINS (Unverified Allergy, Severe, 01/03/19) RASH Subjective Patient is intubated, unable to respond to the painful stimuli, on the ventilation machine, in ICU Objective Last Vital Signs Date Time Temp Pulse Resp B/P (MAP) Pulse Ox O2 Delivery O2 Flow Rate FiO2 01/06/19 17:00 67 16 99/51 (67) 100 01/06/19 16:00 Mechanical Ventilator 01/06/19 16:00 97.6 01/06/19 16:00 60.0 01/06/19 15:29 100 Laboratory Tests Test 01/06/19 07:40 Potassium Level 5.5 MMOL/L (3.5-5.1) H Troponin I 0.013 ng/mL (0.000-0.056) Objective General: Intubated, unable to respond to painful stimuli. HEENT: NCAT, anicteric sclera, erythematous conjunctiva, PERRL, ET tube noted. Neck: Supple, no significant jugular venous distention, Lungs: Equal breath sounds decreased air at the bases, no Wheeze or Rales. Heart: Regular rate and rhythm, normal S1/S2, no murmur, distant heart sounds Abdomen: soft, not tender, nondistended. Normoactive bowel sounds, obesity. Extremities: No Cyanosis , clubbing or edema, left upper extremity AV fistula with thrill.. Neuro: Limited secondary patient status. Unable to respond to commands. Skin: warm, no rash. Assessment/Plan Assessment/Plan 1. Acute hypoxemic respiratory failure. 2. cardiac arrest. 3. End-stage renal disease on hemodialysis. 4. Left eye retinal detachment. 5. Mild obesity. 6. Atherosclerotic heart disease, coronary artery disease. 7. Hypertension. 8. Diabetic type II. Plan: Follow-up with Dr. Burt recommendation for ventilation management. Follow-up with Dr. Rivera recommendation for dialysis. Monitor laboratory as well as culture. Follow-up with the glucose monitoring. Monitor blood pressure closely. DVT prophylaxis with SCD. CODE STATUS is full code at this time. Penicillin allergy. Glenn Young MD Jan 06, 2019 17:28
--- NOTE | 2019-01-06 18:10 | NUR ---
NURSE NOTES: ADLs done mouth care provided.Kept clean and dry. OGT inserted,will follow up with KUB for confirmation.Patient VS stable at this time. Kept on close monitoring
[2019-01-06 18:25] LABS: BASOPHILS % (AUTO) 1.2 % (0.0-2.0); EOSINOPHILS % (AUTO) 0.6 % (0.0-3.0); HEMATOCRIT 31.3 % (37.0-47.0); HEMOGLOBIN 10.5 G/DL (12.0-16.0); LYMPHOCYTES % (AUTO) 10.7 % (20.0-45.0); MEAN CORPUSCULAR VOLUME 94 FL (80-99); MONOCYTES % (AUTO) 8.2 % (1.0-10.0); NEUTROPHILS % (AUTO) 79.3 % (45.0-75.0); PLATELET COUNT 120 K/UL (150-450); RED BLOOD COUNT 3.35 M/UL (4.20-5.40); RED CELL DISTRIBUTION WIDTH 11.8 % (11.6-14.8); WHITE BLOOD COUNT 8.5 K/UL (4.8-10.8)
[2019-01-06 18:36] LABS: ALANINE AMINOTRANSFERASE 20 U/L (12-78); ALBUMIN 3.6 G/DL (3.4-5.0); ALKALINE PHOSPHATASE 184 U/L (46-116); ANION GAP 13 mmol/L (5-15); ASPARTATE AMINO TRANSFERASE 25 U/L (15-37); BILIRUBIN,TOTAL 0.6 MG/DL (0.2-1.0); BLOOD UREA NITROGEN 65 mg/dL (7-18); CALCIUM 9.9 MG/DL (8.5-10.1); CARBON DIOXIDE 25 MMOL/L (21-32); CHLORIDE 100 MMOL/L (98-107); CREATININE 7.2 MG/DL (0.55-1.30); SODIUM 138 MMOL/L (136-145)
[2019-01-06 18:41] LABS: POTASSIUM 6.7 MMOL/L (3.5-5.1)
--- NOTE | 2019-01-06 18:42 | Cardiology Progress Note ---
Assessment/Plan Assessment/Plan doubt a priamrycardiac even likey dany due to hypoxemia await trop and and ekg tonite and in am may need neuro eval [id number] Objective Last 24 Hour Vital Signs Date Time Temp Pulse Resp B/P (MAP) Pulse Ox O2 Delivery O2 Flow Rate FiO2 01/06/19 17:26 67 16 100 01/06/19 17:00 67 16 99/51 (67) 100 01/06/19 16:00 Mechanical Ventilator 01/06/19 16:00 69 01/06/19 16:00 97.6 74 16 87/48 (61) 100 01/06/19 16:00 60.0 01/06/19 15:29 74 16 100 01/06/19 15:00 82 19 90/55 (67) 100 01/06/19 14:00 80 21 121/97 (105) 100 01/06/19 13:53 97.8 01/06/19 13:14 80 18 100 01/06/19 13:03 60.0 01/06/19 13:01 82 18 153/66 (95) 100 01/06/19 12:34 Mechanical Ventilator 01/06/19 12:30 80 17 170/70 (103) 100 01/06/19 12:00 79 01/06/19 12:00 79 18 167/80 (109) 100 01/06/19 12:00 100.0 01/06/19 11:20 97.7 74 17 126/89 (101) 100 01/06/19 11:17 74 28 Mechanical Ventilator 50.0 100 01/06/19 11:16 73 18 100 01/06/19 11:12 73 28 100 01/06/19 07:44 Room Air 01/06/19 07:20 97.0 59 20 138/64 97 Room Air Laboratory Tests Test 01/06/19 07:40 01/06/19 17:40 Potassium Level 5.5 MMOL/L (3.5-5.1) H Pending Troponin I 0.013 ng/mL (0.000-0.056) Pending White Blood Count 8.5 K/UL (4.8-10.8) Red Blood Count 3.35 M/UL (4.20-5.40) L Hemoglobin 10.5 G/DL (12.0-16.0) L Hematocrit 31.3 % (37.0-47.0) L Mean Corpuscular Volume 94 FL (80-99) Mean Corpuscular Hemoglobin 31.5 PG (27.0-31.0) H Mean Corpuscular Hemoglobin Concent 33.6 G/DL (32.0-36.0) Red Cell Distribution Width 11.8 % (11.6-14.8) Platelet Count 120 K/UL (150-450) L Mean Platelet Volume 7.0 FL (6.5-10.1) Neutrophils (%) (Auto) 79.3 % (45.0-75.0) H Lymphocytes (%) (Auto) 10.7 % (20.0-45.0) L Monocytes (%) (Auto) 8.2 % (1.0-10.0) Eosinophils (%) (Auto) 0.6 % (0.0-3.0) Basophils (%) (Auto) 1.2 % (0.0-2.0) Sodium Level Pending Chloride Level Pending Carbon Dioxide Level Pending Blood Urea Nitrogen Pending Creatinine Pending Estimat Glomerular Filtration Rate Pending Glucose Level Pending Calcium Level Pending Phosphorus Level Pending Magnesium Level Pending Total Bilirubin Pending Aspartate Amino Transf (AST/SGOT) Pending Alanine Aminotransferase (ALT/SGPT) Pending Alkaline Phosphatase Pending Total Protein Pending Albumin Pending Globulin Pending Elias Blackmon MD Jan 06, 2019 18:42
--- NOTE | 2019-01-06 19:00 | NUR ---
RESPIRATORY NOTE: PT. RECEIVED STABLE ON AC/VC 16, 600, 60%, +5. ALARMS ON AND AUDIBLE. VENT CIRCUIT SECURE AND OUT OF THE WAY. BILATERAL SOFT WRIST RESTRAINS SECURELY IN PLACE. NO S/S OF RESPIRATORY DISTRESS NOTED AT THIS TIME. WILL CONTINUE TO MONITOR.
--- NOTE | 2019-01-06 19:00 | NUR ---
NURSE NOTES: Called Dr. Rivera and informed him about current CMP labs. Potassium of 6.2. Ordered Stat HD today. 10units Insulin SQ stat one time, D50%W ampule one time IVP, 30G of Kayexalate via OGT one time, 500ml NS bolus one time.
[2019-01-06] MEDS ORDERED: Sodium Polystyrene Sulfonate 15gm Powder ORAL SCH (19:15)
--- NOTE | 2019-01-06 19:15 | Operative Note - Dictated ---
DATE OF OPERATION: 01/06/2019 PREOPERATIVE DIAGNOSIS: Posterior retinal detachment, left eye. POSTOPERATIVE DIAGNOSIS: Procedure not performed due to anesthetic induction problems. SURGEON: Clayton Sneed M.D. ANESTHESIA: LMA general by Nilo Moser M.D. JUSTIFICATION FOR SURGERY: This patient underwent a complicated vitrectomy two weeks ago and did well until she was noted to develop posterior subretinal fluid. BRIEF NOTE: The patient was brought to the operating room and placed on the operating room table in supine position. After a time-out was performed and agreed upon by the staff, general LMA anesthesia was induced. A minimal retrobulbar injection of 2 mL of anesthetic mixture was given as well as a 1 mL Van Lint block. The patient was prepped and draped, but Dr. Moser noted problems with O2 saturation. The case was halted until the issue was the rectified. During this time, the LMA was removed and an endotracheal tube placed. Please refer to Dr. Moser's notes for details. The case was canceled and the patient taken to intensive care unit for monitoring. The patient's family was notified. Clayton Sneed M.D. DR: RAUL JOB#: [id number] CC:
--- NOTE | 2019-01-06 19:15 | NUR ---
NURSE NOTES: Seen by Dr Eubanks, made aware Troponin.Will follow up with new order. Potassium level relayed to Dr Rivera by MELISSA Medeiros. Patient kept on close monitoring
[2019-01-06] MEDS: Aspirin EC 81mg tab ORAL SCH (19:28)
--- NOTE | 2019-01-06 19:46 | NUR ---
HAND-OFF: Report given to MELISSA Medeiros.
--- NOTE | 2019-01-06 20:00 | NUR ---
NURSE NOTES: Patient received from Rosa TORRES. Patient is awake, and somewhat agitated. Patient is trached to ventilator AC 16, 600tv, 60% FiO2 and peep of 5. Vitals are stable, afebrile. Bilateral soft wrist restraints, pulses noted, no swelling observed, skin intact. URMILA AV fistula for HD access. Bilateral eye patched on. Receiving D51/2NS at 50ml/hr. NPO at this time. HR 68 SR, 98/54, 98.2F, RR 19.
--- NOTE | 2019-01-06 20:01 | NUR ---
NURSE NOTES: HD nurse arrived and is at bedside setting up HD equipment.
--- NOTE | 2019-01-06 22:00 | NUR ---
NURSE NOTES: Patient finished HD treatment, no fluid removed, patient tolerated well, BP stayed stable throughout treatments. Will continue to monitor.
[2019-01-06] MEDS: Pantoprazole Inj IVP SCH (22:08)
[2019-01-07] VITALS (24 sets, daily range): BP systolic 107–162; BP diastolic 49–67
--- NOTE | 2019-01-07 | NUR ---
NURSE NOTES: Patient glucose level 42, no coverage given, D50 IVP given. Patient does remain awake and able to nod head to simple commands.
--- NOTE | 2019-01-07 00:45 | Consultation ---
DATE OF CONSULTATION: 01/06/2019 CARDIOLOGY CONSULTATION CONSULTING PHYSICIAN: Elias Blackmon M.D. REFERRING PHYSICIAN: Mirza Burt M.D. REASON FOR REFERAL: Bradycardia and hypoxemic respiratory failure. HISTORY OF PRESENT ILLNESS: This is an elderly female with history of multiple medical problems as delineated below. The patient was scheduled and was about to undergo operative procedure by Dr. Sneed, unfortunately developed hypoxemia on induction of LMA anesthesia. She had received retrobulbar and van Lint blocks, left eye to limit the intraoperative anesthesia and postoperative pain. She was then prepped and draped in normal manner, was to have some eye surgery by Dr. Sneed, vitrectomy. The oxygen saturation dropped after induction, heart rate went from 56 to 40, atropine was given without much effect, epinephrine was then given, eventually 100 micrograms were given. X-rays were checked and showed some pulmonary infiltrate, mid left pleural effusion. Blood pressure subsequently improved to 124/84 with a saturation of 100%. Heart rate of 73. The patient was and was transferred to ICU and remained intubated. The patient is not able to provide any meaningful history as she is on a ventilator and some language barriers do exist, but nevertheless she also does not really follow commands. She is not really able to provide any other meaningful history. The patient is seen by other physicians preoperatively. PAST MEDICAL HISTORY: She has a history of hypertension, diabetes mellitus insulin dependent, end-stage renal disease on hemodialysis, peripheral neuropathy, diabetic both feet and stasis dermatitis. PAST SURGICAL HISTORY: She has hysterectomy, eye surgery, previously an appendectomy. FAMILY HISTORY: Her father from liver cirrhosis from alcoholism and mother had diabetes. ALLERGIES: She is allergic to penicillin that causes her to itch and rash. MEDICATIONS: Her medications apparently include Lantus, losartan 50 mg, hydralazine 50, metoprolol 50, Marlene-Titus, Protonix, aspirin 81 mg, eye drops, Motrin. SOCIAL HISTORY: Denies alcohol or smoking. REVIEW OF SYSTEMS: Unable to obtain. PHYSICAL EXAMINATION: GENERAL: Shows to be an elderly female, on a mechanical ventilator, overweight. HEENT: Eyes are open at least on the left side. She seems to be moving her head around. She moves her right extremities, left side less so and even when treasury director asked her to move the left arm, it seemed like the movement on the left side is not present. LUNGS: Nevertheless she has some crackles noted on the left side posteriorly. CARDIAC: Regular rate and rhythm. No heaves or thrills. ABDOMEN: Abdomen is obese. Positive bowel sounds. Nontender. EXTREMITIES: There is no edema. NEUROLOGICAL: She is awake and seems to be responsive and follows some simple commands. LABORATORY VALUES: CBC not available at the present time. Her last potassium was 5.5. Troponin was 0.013 and repeat levels are pending at this time. Chemistries are pending at this time. Her preoperative EKG shows sinus bradycardia, rate of 56 with T-wave inversions in I and aVL as well as biphasic T-waves in V5 and V6. Chest x-ray has been performed today, interpreted as evidence of cardiomegaly with bilateral pulmonary interstitial and possibly airspace edema and small pleural effusion on the left side. ASSESSMENT AND PLAN: 1. Hypoxic arrest. 2. Bradycardia, probably secondary to hypoxemia. 3. Diabetes mellitus. 4. Hypertension. 5. End-stage renal disease, on hemodialysis. 6. Peripheral neuropathy history. Dr. Burt, this patient was seen in cardiac consultation. The patient's electrocardiogram has not been performed, it has been ordered. Telemetry data shows sinus rhythm at this time. Really, no significant tachy or bradycardia have been identified so far. The patient's vitals reviewed showed blood pressure anywhere between 87/48 to 121/97, temperature of 97.6, with heart rate of 67 to 82. She is saturating at 100% at this time. Chest x-ray shows some pulmonary infiltrates although at least to the radiologist reading. An echocardiogram has been performed and briefly shows normal left ventricular systolic function, although has not been confirmed. There does not appear to be any significant wall motion abnormalities. I doubt a primary cardiac event likely bradycardia secondary to hypoxemia. She may need to have further neurological evaluation as well. EKG will be ordered for this evening as well as cardiac enzymes, as well as cardiac enzymes with labs for tomorrow morning. Nevertheless, EKGs and cardiac enzymes will need to be repeated and finalized. Thank you for allowing me to participate in this patient. Elias Blackmon M.D. DR: Minna JOB#: [id number] CC:
--- NOTE | 2019-01-07 01:00 | NUR ---
NURSE NOTES: After administration of d50, glucose now is 82. Will continue to monitor.
--- NOTE | 2019-01-07 02:00 | NUR ---
NURSE NOTES: Patient repositioned and provided oral care, NAD at this time, No BM.
--- NOTE | 2019-01-07 04:00 | NUR ---
NURSE NOTES: Patient repositioned and provided oral care, NAD, Vitals remain stable, patient cleaned. No new events
--- NOTE | 2019-01-07 04:52 | NUR ---
RESPIRATORY NOTE: PT. REMAINED STABLE ON CMV WITH CURRENT SETTINGS. VENT CIRCUIT SECURE AND OUT OF THE WAY. NO S/S OF RESPIRATORY DISTRESS NOTED AT THIS TIME.
[2019-01-07 05:46] LABS: BASOPHILS % (AUTO) 0.6 % (0.0-2.0); EOSINOPHILS % (AUTO) 0.8 % (0.0-3.0); HEMATOCRIT 29.5 % (37.0-47.0); HEMOGLOBIN 10.2 G/DL (12.0-16.0); LYMPHOCYTES % (AUTO) 7.3 % (20.0-45.0); MEAN CORPUSCULAR VOLUME 94 FL (80-99); MONOCYTES % (AUTO) 8.3 % (1.0-10.0); NEUTROPHILS % (AUTO) 82.9 % (45.0-75.0); PLATELET COUNT 116 K/UL (150-450); RED BLOOD COUNT 3.15 M/UL (4.20-5.40); RED CELL DISTRIBUTION WIDTH 12.1 % (11.6-14.8); WHITE BLOOD COUNT 8.4 K/UL (4.8-10.8)
[2019-01-07] MEDS: NovoLOG Insulin Flexpen SUBQ SCH ×5 (06:00→21:22)
--- NOTE | 2019-01-07 06:00 | NUR ---
NURSE NOTES: Patient repositioned and provided oral care. Patient remains stable at this time.
[2019-01-07 06:05] LABS: INR 1.1 (0.9-1.1)
[2019-01-07 06:08] LABS: ALANINE AMINOTRANSFERASE 15 U/L (12-78); ALBUMIN 3.5 G/DL (3.4-5.0); ALKALINE PHOSPHATASE 151 U/L (46-116); ASPARTATE AMINO TRANSFERASE 19 U/L (15-37); BILIRUBIN,DIRECT 0.3 MG/DL (0.0-0.3); CHOLESTEROL 95 MG/DL (< 200); HDL CHOLESTEROL 35 MG/DL (40-60); LACTATE DEHYDROGENASE 170 U/L (81-234); PHOSPHORUS 2.1 MG/DL (2.5-4.9); TRIGLYCERIDES 85 MG/DL (30-150)
[2019-01-07 06:17] LABS: CREATINE KINASE 41 U/L (26-308)
[2019-01-07 07:13] LABS: ALANINE AMINOTRANSFERASE 17 U/L (12-78); ALBUMIN 3.5 G/DL (3.4-5.0); ALKALINE PHOSPHATASE 146 U/L (46-116); ANION GAP 12 mmol/L (5-15); ASPARTATE AMINO TRANSFERASE 19 U/L (15-37); BLOOD UREA NITROGEN 33 mg/dL (7-18); CALCIUM 9.5 MG/DL (8.5-10.1); CARBON DIOXIDE 29 MMOL/L (21-32); CHLORIDE 98 MMOL/L (98-107); CREATININE 4.8 MG/DL (0.55-1.30); POTASSIUM 3.7 MMOL/L (3.5-5.1); SODIUM 138 MMOL/L (136-145)
--- NOTE | 2019-01-07 07:15 | NUR ---
NURSE NOTES: Received pt from MELISSA Medeiros. Pt is alert, able to nod for yes or no. Orally intubated ETT to vent, AC 16/TV 600/Fio2 30%, PEEP +5, Spo2 100%, RR 18. Denies discomfort or pain at this time. OGT running Glucerna 1.2@30ml/hr, no residual, HOB 35 degrees. Abdomen large, round and nontender. slightly distended. RH 22G running D51/2NS@50ml/hr. Patient has a URMILA AV Shunt, positive for bruit and thrill. Bilateral soft restraints, skin intact and warm to touch. Pt is anuric. Bed locked, alarmed and in lowest position. Will continue plan of care.
--- NOTE | 2019-01-07 07:52 | NUR ---
RESPIRATORY NOTE: received pt intubated with ett size 7.0, placed 22cm at the lip. ETT secured via anchor fast with no redness or skin breakdowns. pt slightly agitated with sxn. no resp distress noted at this time. vent is plugged into redoutlet with alarms on and audible. ambu at bedside. will cont to monitor.
--- NOTE | 2019-01-07 08:34 | NUR ---
RESPIRATORY NOTE: Placed pt on CPAP PS 8 at 0827. RN, Christy and Shavon aware. No resp distress noted at this time. Pt understands what is needed in japanese. will cont to monitor
[2019-01-07] MEDS: Heparin 5000 units/ml inj SUBQ SCH ×2 (08:36→21:17)
[2019-01-07] MEDS: Aspirin EC 81mg tab ORAL SCH (08:36)
[2019-01-07] MEDS: D5 1/2NS 1,000 ML IV SCH (08:36)
[2019-01-07] MEDS: Pantoprazole Inj IVP SCH ×2 (08:36→21:12)
--- NOTE | 2019-01-07 08:57 | Pulmonolgy Critical Care Note ---
Critical Care - Asmt/Plan Problems: (1) Cardiac arrest (2) Diabetes mellitus (3) ESRF (end stage renal failure) (4) Non-ST elevation (NSTEMI) myocardial infarction Respiratory: monitor respiratory rate, adjust FIO2, CXR Cardiac: continue to monitor HR/BP Renal: F/U I&O Infectious Disease: check cultures Gastrointestinal: hold feedings Endocrine: monitor blood sugar Hematologic: monitor H/H, transfuse if hgb<8.5 Neurologic: PRN Ativan, PRN Morphine, keep patient comfortable Time Spent (Minutes): 40 Notes Reviewed: dermatology specialist, cardio, renal Discussed with: nurses, consultants, porter sample caseresident services manager - Objective Last 24 Hour Vital Signs Date Time Temp Pulse Resp B/P (MAP) Pulse Ox O2 Delivery O2 Flow Rate FiO2 01/07/19 08:46 100 01/07/19 08:27 30 01/07/19 08:00 Mechanical Ventilator 01/07/19 07:50 71 19 30 01/07/19 06:00 68 16 144/57 (86) 100 01/07/19 05:00 70 20 152/58 (89) 100 01/07/19 04:52 68 17 60 01/07/19 04:12 69 22 60 01/07/19 04:00 Mechanical Ventilator 01/07/19 04:00 30.0 01/07/19 04:00 99.2 67 18 117/50 (72) 100 01/07/19 04:00 64 01/07/19 03:00 66 16 132/67 (88) 100 01/07/19 02:00 65 18 125/57 (79) 100 01/07/19 01:00 68 16 107/49 (68) 100 01/07/19 00:56 68 16 60 01/07/19 00:00 40.0 01/07/19 00:00 98.9 78 16 108/56 (73) 100 01/07/19 00:00 Mechanical Ventilator 01/06/19 23:00 74 19 112/68 (83) 100 01/06/19 22:53 74 19 60 01/06/19 22:00 68 20 131/52 (78) 100 01/06/19 21:09 68 20 60 01/06/19 21:00 68 18 128/64 (85) 100 01/06/19 20:15 Endotracheal Tube 60 01/06/19 20:00 60.0 01/06/19 20:00 Mechanical Ventilator 01/06/19 20:00 98.5 70 21 136/63 (87) 100 01/06/19 20:00 68 01/06/19 19:00 69 18 94/58 (70) 100 01/06/19 19:00 69 18 60 01/06/19 18:00 68 18 126/72 (90) 100 01/06/19 17:26 67 16 100 01/06/19 17:00 67 16 99/51 (67) 100 01/06/19 16:00 Mechanical Ventilator 01/06/19 16:00 69 01/06/19 16:00 97.6 74 16 87/48 (61) 100 01/06/19 16:00 60.0 01/06/19 15:29 74 16 100 01/06/19 15:00 82 19 90/55 (67) 100 01/06/19 14:00 80 21 121/97 (105) 100 01/06/19 13:53 97.8 01/06/19 13:14 80 18 100 01/06/19 13:03 60.0 01/06/19 13:01 82 18 153/66 (95) 100 01/06/19 12:34 Mechanical Ventilator 01/06/19 12:30 80 17 170/70 (103) 100 01/06/19 12:00 79 01/06/19 12:00 79 18 167/80 (109) 100 01/06/19 12:00 100.0 01/06/19 11:20 97.7 74 17 126/89 (101) 100 01/06/19 11:17 74 28 Mechanical Ventilator 50.0 100 01/06/19 11:16 73 18 100 01/06/19 11:12 73 28 100 Status: awake Condition: critical Neck: full ROM Lungs: clear Heart: HR/BP stable Abdomen: soft, non-tender Extremities: no C/C/E, edema Accucheck: 101 Critical Care - Subjective ROS Limited/Unobtainable: Yes FI02: 30 Vent Support Breath Rate: 16 Vent Support Mode: CPAP Vent Tidal Volume: 600 Sputum Amount: Scant PEEP: 5.0 PIP: 37 Tube Feeding Amount: 30 I&O: Intake and Output 3/18/19 3/19/19 18:59 06:59 Intake Total 125 ml 780 ml Output Total 0 ml Balance 125 ml 780 ml Intake IV Total 125 ml 600 ml Tube Feeding 180 ml Output Urine Total 0 ml Hemodialysis UF 0 ml CXR: no change, ET tube ET-Tube: 7.0 ET Position: 22 Labs: Laboratory Tests Test 01/06/19 17:40 01/07/19 04:10 White Blood Count 8.5 K/UL (4.8-10.8) 8.4 K/UL (4.8-10.8) Red Blood Count 3.35 M/UL (4.20-5.40) L 3.15 M/UL (4.20-5.40) L Hemoglobin 10.5 G/DL (12.0-16.0) L 10.2 G/DL (12.0-16.0) L Hematocrit 31.3 % (37.0-47.0) L 29.5 % (37.0-47.0) L Mean Corpuscular Volume 94 FL (80-99) 94 FL (80-99) Mean Corpuscular Hemoglobin 31.5 PG (27.0-31.0) H 32.3 PG (27.0-31.0) H Mean Corpuscular Hemoglobin Concent 33.6 G/DL (32.0-36.0) 34.5 G/DL (32.0-36.0) Red Cell Distribution Width 11.8 % (11.6-14.8) 12.1 % (11.6-14.8) Platelet Count 120 K/UL (150-450) L 116 K/UL (150-450) L Mean Platelet Volume 7.0 FL (6.5-10.1) 7.5 FL (6.5-10.1) Neutrophils (%) (Auto) 79.3 % (45.0-75.0) H 82.9 % (45.0-75.0) H Lymphocytes (%) (Auto) 10.7 % (20.0-45.0) L 7.3 % (20.0-45.0) L Monocytes (%) (Auto) 8.2 % (1.0-10.0) 8.3 % (1.0-10.0) Eosinophils (%) (Auto) 0.6 % (0.0-3.0) 0.8 % (0.0-3.0) Basophils (%) (Auto) 1.2 % (0.0-2.0) 0.6 % (0.0-2.0) Sodium Level 138 MMOL/L (136-145) 138 MMOL/L (136-145) Potassium Level 6.7 MMOL/L (3.5-5.1) *H 3.7 MMOL/L (3.5-5.1) Chloride Level 100 MMOL/L (98-107) 98 MMOL/L (98-107) Carbon Dioxide Level 25 MMOL/L (21-32) 29 MMOL/L (21-32) Anion Gap 13 mmol/L (5-15) 12 mmol/L (5-15) Blood Urea Nitrogen 65 mg/dL (7-18) H 33 mg/dL (7-18) H Creatinine 7.2 MG/DL (0.55-1.30) H 4.8 MG/DL (0.55-1.30) H Estimat Glomerular Filtration Rate 5.9 mL/min (>60) 9.3 mL/min (>60) Glucose Level 88 MG/DL (74-106) 71 MG/DL (74-106) L Calcium Level 9.9 MG/DL (8.5-10.1) 9.5 MG/DL (8.5-10.1) Phosphorus Level 4.0 MG/DL (2.5-4.9) 2.1 MG/DL (2.5-4.9) L Magnesium Level 2.4 MG/DL (1.8-2.4) Total Bilirubin 0.6 MG/DL (0.2-1.0) 1.0 MG/DL (0.2-1.0) Aspartate Amino Transf (AST/SGOT) 25 U/L (15-37) 19 U/L (15-37) Alanine Aminotransferase (ALT/SGPT) 20 U/L (12-78) 17 U/L (12-78) Alkaline Phosphatase 184 U/L (46-116) H 146 U/L (46-116) H Troponin I 0.289 ng/mL (0.000-0.056) 0.150 ng/mL (0.000-0.056) Total Protein 7.1 G/DL (6.4-8.2) 7.0 G/DL (6.4-8.2) Albumin 3.6 G/DL (3.4-5.0) 3.5 G/DL (3.4-5.0) Globulin 3.5 g/dL 3.5 g/dL Albumin/Globulin Ratio 1.0 (1.0-2.7) 1.0 (1.0-2.7) Prothrombin Time 12.0 SEC (9.30-11.50) H Prothromb Time International Ratio 1.1 (0.9-1.1) Activated Partial Thromboplast Time 28 SEC (23-33) Direct Bilirubin 0.3 MG/DL (0.0-0.3) Lactate Dehydrogenase 170 U/L (81-234) Total Creatine Kinase 41 U/L (26-308) Pro-B-Type Natriuretic Peptide 71160 pg/mL (0-125) H Triglycerides Level 85 MG/DL (30-150) Cholesterol Level 95 MG/DL (< 200) LDL Cholesterol 51 mg/dL (<100) HDL Cholesterol 35 MG/DL (40-60) L Cholesterol/HDL Ratio 2.7 (3.3-4.4) L Mirza Burt MD Jan 07, 2019 08:57
--- NOTE | 2019-01-07 09:12 | NUR ---
NURSE NOTES: Extubated per Dr. Burt. No stridor, no resp distress, placed on aerosol venturi mask 10L, Fio2 40%. Spo2 99%, RR 16, BP 147/57, HR 74, Afebrile.
--- NOTE | 2019-01-07 09:27 | NUR ---
RESPIRATORY NOTE: Received order to extubate. successful extubation occurred at 0912. No resp distress or stridor heard post extubation. Bilateral diminished b/s and placed pt on CA 40%. Pt's saturation 99-100%. will cont to monitor
--- NOTE | 2019-01-07 10:12 | NUR ---
NURSE NOTES: Received orders to continue previous diet, [facility]
--- NOTE | 2019-01-07 10:38 | NUR ---
NURSE NOTES: C/o of lower back pain, requested pain med. norco given as per pRN ordered.
--- NOTE | 2019-01-07 11:32 | NUR ---
CASE MANAGEMENT:REVIEW 58 YR OLD FEMALE HERE FOR ELECTIVE SURGERY FOR POSTERIOR RETINAL DETACHMENT OS PROCEDURE WAS NOT PERFORMED D/T LOW SATURATION PRIOR TO SURGERY. CARDIAC ARREST? PROCEDURE WAS ABORTED AND PATIENT SENT TO ICU SI: CARDIAC ARREST K+6.7 BUN+65 CR+7.2 IS: IV ATROPINE : TO ICU 01/07/19 SI: RESPIRATORY FAILURE. INTUBATED 98.9 71 16 140/51 100% ON VENTILATOR SUPPORT H/H-10.2/29.5 PLT-116 TROPONIN(+) 0.150 BUN+33 CR+4.8 IS: INSULIN SQ Q6HRS IV PROTONIX Q12 IVF@50/HR ASA QD HEPARIN SQ Q12 : ICU STATUS INTERQUAL CRITERIA MET
--- NOTE | 2019-01-07 12:00 | Pre-op HX & Phy Repo 2 SIG ---
DATE OF SURGERY: 01/06/2019 PREOPERATIVE DIAGNOSIS: Posterior retinal detachment, left eye. BRIEF NOTE: This is the second [facility] admission for the patient, who is a very kind 58-year-old lady with a long history of severe proliferative diabetic retinopathy. The patient was recently operated on roughly two weeks ago at [facility] for a long-standing dense vitreous hemorrhage with debris in the left eye. The surgery went well with the retina noted to have been flat at the end of the procedure. On her two-week postoperative visit, she was found to have elevation of the retina around the posterior pole suspected to result from an opening of a prior laser scar. Based on this, she is admitted for repeat vitrectomy with placement of silicone oil and endolaser. PAST MEDICAL HISTORY: Remarkable for severe diabetes since 1994. She also has hypertension and has been on dialysis for several years. CURRENT MEDICATIONS: Include Velphoro, losartan, Lantus insulin, famotidine, and methazolamide. ALLERGIES: She is allergic to penicillin. PHYSICAL EXAMINATION: Best vision at the time of the visit was no light perception to right eye, counting fingers peripherally in the left with pressures of 1 and 15. The anterior segment on the right showed an amaurotic pupil with sluggish reaction. There was significant corneal edema. Anterior segment showed a tube shunt in place at the 10 o'clock position. There was mild hyperemia. The lens implant was noted in the back. Funduscopic examination showed clearing of the vitreous hemorrhage with no recurrence. There was elevation of the posterior pole extending nasal to the optic nerve. ASSESSMENT: Posterior retinal elevation, left eye. PLAN: The plan is to perform a vitrectomy with endo-drainage, instillation of silicone oil as well as Endolaser and Avastin injection. The risks and benefits of surgery was gone over with the patient and her family including potential for infection, hemorrhage, change in refraction, remote possibility of loss of the eye. They were also advised that the silicone oil may need to be removed at a later date. The patient and her family understand and consents to the surgery, which will be performed on Sunday. Clayton Sneed M.D. : RAUL JOB#: [id number] CC:
--- NOTE | 2019-01-07 12:00 | NUR ---
NURSE NOTES: Pt is seen restless, moaning and saying, "I need something for my anxiety!" Ativan given as per ordered.
--- NOTE | 2019-01-07 12:11 | 48 Hour Post Anesthesia Eval ---
Post Anesthesia Evaluation Procedure: Vitrectomy OD Date of Evaluation: Jan 07, 2019 Time of Evaluation: 12:09 Blood Pressure Systolic: 128 0: 54 Pulse Rate: 78 Respiratory Rate: 17 Temperature (Fahrenheit): 99.2 O2 Sat by Pulse Oximetry: 100 Airway: patent Nausea: No Vomiting: No Pain Intensity: 0 Hydration Status: adequate Cardiopulmonary Status: Stable Mental Status/LOC: patient returned to baseline Follow-up Care/Observations: 0 Post-Anesthesia Complications: 0 Follow-up care needed: N/A Nilo Moser MD Jan 07, 2019 12:11
[2019-01-07] MEDS ORDERED: Losartan 50mg tab ORAL SCH (12:30)
--- NOTE | 2019-01-07 12:37 | Diagnostic Imaging Report ---
Indication: NG tube placement Comparison: None Single view of the abdomen obtained Findings: Nasogastric tube is in good position projected over the stomach which is distended with air. IMPRESSION: NG tube satisfactory in position
[2019-01-07] MEDS: LORazepam Inj 2mg/ml 1ml IV PRN (12:41)
[2019-01-07] MEDS ORDERED: Vitamin B Complex Tab ORAL SCH (14:00)
[2019-01-07] MEDS ORDERED: HydrALAZINE 50mg tab ORAL PRN (14:00)
[2019-01-07] MEDS ORDERED: HydrALAZINE 50mg tab ORAL SCH (14:00)
[2019-01-07] MEDS ORDERED: Vigamox Opth Soln 3ml RIGHT EYE SCH (14:00)
[2019-01-07] MEDS ORDERED: Pred Forte 1% Opth Susp 1ml RIGHT EYE SCH (14:00)
--- NOTE | 2019-01-07 14:14 | NUR ---
NURSE NOTES: Tolerated 75% of lunch w/o difficulty. No s/sx of resp distress. tolerating well on 2LNC.
--- NOTE | 2019-01-07 14:28 | Cardiology Progress Note ---
Assessment/Plan Assessment/Plan 1. Hypoxic arrest. 2. Bradycardia, probably secondary to hypoxemia. 3. Diabetes mellitus. 4. Hypertension. 5. End-stage renal disease, on hemodialysis. 6. Peripheral neuropathy history. 7. Abn ekg trop min increased and again seems decreased concerning for acs denies any cp ekg is abn with new t wve changes may benefit from invasive eval in light of abn ekg echo performed to be reviewed trop will be reordered for am ekg as well keep on asa will use ntp for now if any cp will start on anticoagulation keep on statin and asa Subjective Cardiovascular: Denies: chest pain, irregular heart rate, lightheadedness Respiratory: Denies: shortness of breath Gastrointestinal/Abdominal: Denies: abdominal pain Genitourinary: Denies: burning Objective Last 24 Hour Vital Signs Date Time Temp Pulse Resp B/P (MAP) Pulse Ox O2 Delivery O2 Flow Rate FiO2 01/07/19 14:00 73 21 138/63 (88) 100 01/07/19 13:00 74 17 131/61 (84) 100 01/07/19 12:11 78 17 100 01/07/19 12:00 76 01/07/19 12:00 Mechanical Ventilator 01/07/19 12:00 77 19 149/62 (91) 100 01/07/19 12:00 30.0 01/07/19 11:04 99.2 01/07/19 11:00 78 17 128/54 (78) 100 01/07/19 10:00 75 16 127/50 (75) 100 01/07/19 09:26 99 12.0 40 01/07/19 09:26 12.0 40 01/07/19 09:24 14.0 40 01/07/19 09:00 74 16 147/57 (87) 100 01/07/19 08:46 100 01/07/19 08:27 30 01/07/19 08:00 30.0 01/07/19 08:00 74 01/07/19 08:00 Mechanical Ventilator 01/07/19 08:00 98.9 71 16 140/51 (80) 100 01/07/19 07:50 71 19 30 01/07/19 07:00 73 16 150/59 (89) 100 01/07/19 06:00 68 16 144/57 (86) 100 01/07/19 05:00 70 20 152/58 (89) 100 01/07/19 04:52 68 17 60 01/07/19 04:12 69 22 60 01/07/19 04:00 Mechanical Ventilator 01/07/19 04:00 30.0 01/07/19 04:00 99.2 67 18 117/50 (72) 100 01/07/19 04:00 64 01/07/19 03:00 66 16 132/67 (88) 100 01/07/19 02:00 65 18 125/57 (79) 100 01/07/19 01:00 68 16 107/49 (68) 100 01/07/19 00:56 68 16 60 01/07/19 00:00 40.0 01/07/19 00:00 98.9 78 16 108/56 (73) 100 01/07/19 00:00 Mechanical Ventilator 01/06/19 23:00 74 19 112/68 (83) 100 01/06/19 22:53 74 19 60 01/06/19 22:00 68 20 131/52 (78) 100 01/06/19 21:09 68 20 60 01/06/19 21:00 68 18 128/64 (85) 100 01/06/19 20:15 Endotracheal Tube 60 01/06/19 20:00 60.0 01/06/19 20:00 Mechanical Ventilator 01/06/19 20:00 98.5 70 21 136/63 (87) 100 01/06/19 20:00 68 01/06/19 19:00 69 18 94/58 (70) 100 01/06/19 19:00 69 18 60 01/06/19 18:00 68 18 126/72 (90) 100 01/06/19 17:26 67 16 100 01/06/19 17:00 67 16 99/51 (67) 100 01/06/19 16:00 Mechanical Ventilator 01/06/19 16:00 69 01/06/19 16:00 97.6 74 16 87/48 (61) 100 01/06/19 16:00 60.0 01/06/19 15:29 74 16 100 01/06/19 15:00 82 19 90/55 (67) 100 General Appearance: no apparent distress, alert Neck: supple Cardiovascular: normal rate, regular rhythm Respiratory/Chest: lungs clear Abdomen: normal bowel sounds, non tender, soft Extremities: no swelling Intake and Output 01/06/19 01/07/19 19:00 07:00 Intake Total 175 ml 810 ml Output Total 0 ml Balance 175 ml 810 ml IV Total 175 ml 600 ml Tube Feeding 210 ml Output Urine Total 0 ml Hemodialysis UF 0 ml Laboratory Tests Test 01/06/19 17:40 01/07/19 04:10 White Blood Count 8.5 K/UL (4.8-10.8) 8.4 K/UL (4.8-10.8) Red Blood Count 3.35 M/UL (4.20-5.40) L 3.15 M/UL (4.20-5.40) L Hemoglobin 10.5 G/DL (12.0-16.0) L 10.2 G/DL (12.0-16.0) L Hematocrit 31.3 % (37.0-47.0) L 29.5 % (37.0-47.0) L Mean Corpuscular Volume 94 FL (80-99) 94 FL (80-99) Mean Corpuscular Hemoglobin 31.5 PG (27.0-31.0) H 32.3 PG (27.0-31.0) H Mean Corpuscular Hemoglobin Concent 33.6 G/DL (32.0-36.0) 34.5 G/DL (32.0-36.0) Red Cell Distribution Width 11.8 % (11.6-14.8) 12.1 % (11.6-14.8) Platelet Count 120 K/UL (150-450) L 116 K/UL (150-450) L Mean Platelet Volume 7.0 FL (6.5-10.1) 7.5 FL (6.5-10.1) Neutrophils (%) (Auto) 79.3 % (45.0-75.0) H 82.9 % (45.0-75.0) H Lymphocytes (%) (Auto) 10.7 % (20.0-45.0) L 7.3 % (20.0-45.0) L Monocytes (%) (Auto) 8.2 % (1.0-10.0) 8.3 % (1.0-10.0) Eosinophils (%) (Auto) 0.6 % (0.0-3.0) 0.8 % (0.0-3.0) Basophils (%) (Auto) 1.2 % (0.0-2.0) 0.6 % (0.0-2.0) Sodium Level 138 MMOL/L (136-145) 138 MMOL/L (136-145) Potassium Level 6.7 MMOL/L (3.5-5.1) *H 3.7 MMOL/L (3.5-5.1) Chloride Level 100 MMOL/L (98-107) 98 MMOL/L (98-107) Carbon Dioxide Level 25 MMOL/L (21-32) 29 MMOL/L (21-32) Anion Gap 13 mmol/L (5-15) 12 mmol/L (5-15) Blood Urea Nitrogen 65 mg/dL (7-18) H 33 mg/dL (7-18) H Creatinine 7.2 MG/DL (0.55-1.30) H 4.8 MG/DL (0.55-1.30) H Estimat Glomerular Filtration Rate 5.9 mL/min (>60) 9.3 mL/min (>60) Glucose Level 88 MG/DL (74-106) 71 MG/DL (74-106) L Calcium Level 9.9 MG/DL (8.5-10.1) 9.5 MG/DL (8.5-10.1) Phosphorus Level 4.0 MG/DL (2.5-4.9) 2.1 MG/DL (2.5-4.9) L Magnesium Level 2.4 MG/DL (1.8-2.4) Total Bilirubin 0.6 MG/DL (0.2-1.0) 1.0 MG/DL (0.2-1.0) Aspartate Amino Transf (AST/SGOT) 25 U/L (15-37) 19 U/L (15-37) Alanine Aminotransferase (ALT/SGPT) 20 U/L (12-78) 17 U/L (12-78) Alkaline Phosphatase 184 U/L (46-116) H 146 U/L (46-116) H Troponin I 0.289 ng/mL (0.000-0.056) 0.150 ng/mL (0.000-0.056) Total Protein 7.1 G/DL (6.4-8.2) 7.0 G/DL (6.4-8.2) Albumin 3.6 G/DL (3.4-5.0) 3.5 G/DL (3.4-5.0) Globulin 3.5 g/dL 3.5 g/dL Albumin/Globulin Ratio 1.0 (1.0-2.7) 1.0 (1.0-2.7) Prothrombin Time 12.0 SEC (9.30-11.50) H Prothromb Time International Ratio 1.1 (0.9-1.1) Activated Partial Thromboplast Time 28 SEC (23-33) Direct Bilirubin 0.3 MG/DL (0.0-0.3) Lactate Dehydrogenase 170 U/L (81-234) Total Creatine Kinase 41 U/L (26-308) Pro-B-Type Natriuretic Peptide 11162 pg/mL (0-125) H Triglycerides Level 85 MG/DL (30-150) Cholesterol Level 95 MG/DL (< 200) LDL Cholesterol 51 mg/dL (<100) HDL Cholesterol 35 MG/DL (40-60) L Cholesterol/HDL Ratio 2.7 (3.3-4.4) L Elias Blackmon MD Jan 07, 2019 14:28
--- NOTE | 2019-01-07 15:06 | Internal Med Progress Note ---
Subjective Physician Name HectorGlenn Attending Physician Mirza Burt MD Current Medications Medications (Trade) Dose Ordered Sig/Steven Route PRN Reason Start Time Stop Time Status Last Admin Dose Admin Acetaminophen (Tylenol) 650 mg Q4H PRN ORAL Mild Pain (Pain Scale 1-3) 01/06/19 13:00 02/05/19 12:59 Acetaminophen (Tylenol) 650 mg Q4H PRN ORAL T>100.5 01/06/19 13:00 02/05/19 12:59 Acetaminophen/ Hydrocodone Bitart (Beauty 5/325) 1 tab Q4H PRN ORAL Moderate Pain (Pain Scale 4-6) 01/06/19 13:00 01/13/19 12:59 01/07/19 10:34 Albuterol/ Ipratropium (Albuterol/ Ipratropium) 3 ml Q4H PRN HHN Shortness of Breath 01/06/19 11:30 01/11/19 11:29 Aspirin (Ecotrin) 81 mg DAILY ORAL 01/06/19 18:45 02/05/19 18:44 01/06/19 19:28 Atorvastatin Calcium (Lipitor) 80 mg BEDTIME ORAL 01/07/19 21:00 02/06/19 20:59 Bacitracin/ Polymyxin B Sulfate (Polysporin Op Oint) 1 applic BEDTIME RIGHT EYE 01/07/19 21:00 01/14/19 20:59 Dextrose (Dextrose 50%) 25 ml Q30M PRN IV Hypoglycemia 01/06/19 13:00 02/05/19 12:59 Dextrose (Dextrose 50%) 50 ml Q30M PRN IV Hypoglycemia 01/06/19 13:00 02/05/19 12:59 01/07/19 00:22 Gabapentin (Neurontin) 100 mg DAILY ORAL 01/07/19 12:30 02/06/19 12:29 01/07/19 13:03 Heparin Sodium (Porcine) (Heparin 5000 units/ml) 5,000 units EVERY 12 HOURS SUBQ 01/06/19 01:30 02/05/19 01:29 Hydralazine HCl (Apresoline) 50 mg Q8H PRN ORAL SBP > 155mmHg 01/07/19 14:00 02/06/19 13:59 Insulin Aspart (NovoLOG) EVERY 6 HOURS SUBQ 01/07/19 00:00 02/05/19 16:29 01/07/19 12:40 Lorazepam (Ativan 2mg/ml 1ml) 2 mg Q2H PRN IV agitation 01/06/19 11:30 01/13/19 11:29 01/07/19 12:41 Morphine Sulfate (Morphine Sulfate) 4 mg Q4H PRN IVP Severe Pain (Pain Scale 7-10) 01/06/19 11:30 01/13/19 11:29 01/06/19 13:23 Moxifloxacin HCl (Vigamox) 1 drop Q8HR LEFT EYE 01/07/19 22:00 01/14/19 21:59 Neomycin/ Polymyxin/ Dexamethasone (Maxitrol Opth Susp) 1 drop BEDTIME LEFT EYE 01/07/19 21:00 01/14/19 20:59 Nitroglycerin (Nitro-Bid) 1 inch TID@0600,1200,1800 TOPIC 01/07/19 18:00 02/06/19 17:59 Nitroglycerin (Ntg) 0.4 mg Q5MIN X 3 DOSES PRN SL Prn Chest Pain 01/06/19 12:30 02/05/19 12:29 Ondansetron HCl (Zofran) 4 mg Q4H PRN IVP Nausea & Vomiting 01/06/19 13:00 02/05/19 12:59 Pantoprazole (Protonix) 40 mg EVERY 12 HOURS IVP 01/06/19 21:00 02/05/19 20:59 01/07/19 08:36 Prednisolone Acetate (Pred Forte) 1 drop QID BOTH EYES 01/07/19 18:00 02/06/19 17:59 Sevelamer Carbonate (Renvela) 800 mg THREE TIMES A DAY ORAL 01/07/19 13:00 02/06/19 12:59 01/07/19 13:03 Vitamin B Complex (Vitamin B Complex) 1 tab DAILY ORAL 01/08/19 09:00 02/07/19 08:59 Allergies: Coded Allergies: PENICILLINS (Unverified Allergy, Severe, 01/03/19) RASH Subjective Extubated today, in ICU, awake, alert, responsive, NAD, No CP or SOB. Objective Last Vital Signs Date Time Temp Pulse Resp B/P (MAP) Pulse Ox O2 Delivery O2 Flow Rate FiO2 01/07/19 14:00 73 21 138/63 (88) 100 01/07/19 12:00 Mechanical Ventilator 01/07/19 12:00 30.0 01/07/19 11:04 99.2 01/07/19 09:26 40 Laboratory Tests Test 01/06/19 17:40 01/07/19 04:10 White Blood Count 8.5 K/UL (4.8-10.8) 8.4 K/UL (4.8-10.8) Red Blood Count 3.35 M/UL (4.20-5.40) L 3.15 M/UL (4.20-5.40) L Hemoglobin 10.5 G/DL (12.0-16.0) L 10.2 G/DL (12.0-16.0) L Hematocrit 31.3 % (37.0-47.0) L 29.5 % (37.0-47.0) L Mean Corpuscular Volume 94 FL (80-99) 94 FL (80-99) Mean Corpuscular Hemoglobin 31.5 PG (27.0-31.0) H 32.3 PG (27.0-31.0) H Mean Corpuscular Hemoglobin Concent 33.6 G/DL (32.0-36.0) 34.5 G/DL (32.0-36.0) Red Cell Distribution Width 11.8 % (11.6-14.8) 12.1 % (11.6-14.8) Platelet Count 120 K/UL (150-450) L 116 K/UL (150-450) L Mean Platelet Volume 7.0 FL (6.5-10.1) 7.5 FL (6.5-10.1) Neutrophils (%) (Auto) 79.3 % (45.0-75.0) H 82.9 % (45.0-75.0) H Lymphocytes (%) (Auto) 10.7 % (20.0-45.0) L 7.3 % (20.0-45.0) L Monocytes (%) (Auto) 8.2 % (1.0-10.0) 8.3 % (1.0-10.0) Eosinophils (%) (Auto) 0.6 % (0.0-3.0) 0.8 % (0.0-3.0) Basophils (%) (Auto) 1.2 % (0.0-2.0) 0.6 % (0.0-2.0) Sodium Level 138 MMOL/L (136-145) 138 MMOL/L (136-145) Potassium Level 6.7 MMOL/L (3.5-5.1) *H 3.7 MMOL/L (3.5-5.1) Chloride Level 100 MMOL/L (98-107) 98 MMOL/L (98-107) Carbon Dioxide Level 25 MMOL/L (21-32) 29 MMOL/L (21-32) Anion Gap 13 mmol/L (5-15) 12 mmol/L (5-15) Blood Urea Nitrogen 65 mg/dL (7-18) H 33 mg/dL (7-18) H Creatinine 7.2 MG/DL (0.55-1.30) H 4.8 MG/DL (0.55-1.30) H Estimat Glomerular Filtration Rate 5.9 mL/min (>60) 9.3 mL/min (>60) Glucose Level 88 MG/DL (74-106) 71 MG/DL (74-106) L Calcium Level 9.9 MG/DL (8.5-10.1) 9.5 MG/DL (8.5-10.1) Phosphorus Level 4.0 MG/DL (2.5-4.9) 2.1 MG/DL (2.5-4.9) L Magnesium Level 2.4 MG/DL (1.8-2.4) Total Bilirubin 0.6 MG/DL (0.2-1.0) 1.0 MG/DL (0.2-1.0) Aspartate Amino Transf (AST/SGOT) 25 U/L (15-37) 19 U/L (15-37) Alanine Aminotransferase (ALT/SGPT) 20 U/L (12-78) 17 U/L (12-78) Alkaline Phosphatase 184 U/L (46-116) H 146 U/L (46-116) H Troponin I 0.289 ng/mL (0.000-0.056) 0.150 ng/mL (0.000-0.056) Total Protein 7.1 G/DL (6.4-8.2) 7.0 G/DL (6.4-8.2) Albumin 3.6 G/DL (3.4-5.0) 3.5 G/DL (3.4-5.0) Globulin 3.5 g/dL 3.5 g/dL Albumin/Globulin Ratio 1.0 (1.0-2.7) 1.0 (1.0-2.7) Prothrombin Time 12.0 SEC (9.30-11.50) H Prothromb Time International Ratio 1.1 (0.9-1.1) Activated Partial Thromboplast Time 28 SEC (23-33) Direct Bilirubin 0.3 MG/DL (0.0-0.3) Lactate Dehydrogenase 170 U/L (81-234) Total Creatine Kinase 41 U/L (26-308) Pro-B-Type Natriuretic Peptide 20489 pg/mL (0-125) H Triglycerides Level 85 MG/DL (30-150) Cholesterol Level 95 MG/DL (< 200) LDL Cholesterol 51 mg/dL (<100) HDL Cholesterol 35 MG/DL (40-60) L Cholesterol/HDL Ratio 2.7 (3.3-4.4) L Intake and Output 01/06/19 01/07/19 19:00 07:00 Intake Total 175 ml 810 ml Output Total 0 ml Balance 175 ml 810 ml IV Total 175 ml 600 ml Tube Feeding 210 ml Output Urine Total 0 ml Hemodialysis UF 0 ml Objective General: A&O X 3, NAD, awake, alert, responsive. HEENT: NCAT, anicteric sclera, erythematous conjunctiva, PERRL, EOMI, eyes both covered. Neck: Supple, no significant jugular venous distention, Lungs: good respiratory affords, decreased air at the bases, no Wheeze or Rales. Heart: Regular rate and rhythm, normal S1/S2, no murmur, distant heart sounds Abdomen: soft, not tender, nondistended. Normoactive bowel sounds, obesity. Extremities: No Cyanosis , clubbing or edema, left upper extremity AV fistula with thrill.. Neuro: motor 5/5 all extremities, CN 2-12 intact. Skin: warm, no rash. Assessment/Plan Assessment/Plan 1. Acute hypoxemic respiratory failure. 2. Hypoxemic arrest. 3. End-stage renal disease on hemodialysis. 4. Left eye retinal detachment. 5. Mild obesity. 6. Atherosclerotic heart disease, coronary artery disease. 7. Hypertension. 8. Diabetic type II. 9. Elevated troponin possible ACS Plan: Follow-up with Dr. Burt recommendation for ventilation management. Follow-up with Dr. Rivera recommendation for dialysis. F/U with Dr. De La Cruz from cardiology. Monitor laboratory Follow-up with the glucose monitoring. Monitor blood pressure closely. DVT prophylaxis with SCD. CODE STATUS is full code at this time. PT Mobility, Penicillin allergy. Glenn Young MD Jan 07, 2019 15:06
--- NOTE | 2019-01-07 15:26 | Nephrology Progress Note ---
Assessment/Plan Problem List: (1) ESRF (end stage renal failure) (2) Cardiac arrest (3) Diabetes mellitus Assessment ESRD s/p Cardiac Arrest Respiratory failure on Vent DM Plan Now extubated- Dialysed last night for high K Post extubation care Albumin bolus as needed Protonix IV dialysis next 01/09 unless needed earlier per cardiology and pulmonary advise Subjective ROS Limited/Unobtainable: No Constitutional: Reports: malaise, other - extubated Objective Objective Last 24 Hour Vital Signs Date Time Temp Pulse Resp B/P (MAP) Pulse Ox O2 Delivery O2 Flow Rate FiO2 01/07/19 14:00 73 21 138/63 (88) 100 01/07/19 13:00 74 17 131/61 (84) 100 01/07/19 12:11 78 17 100 01/07/19 12:00 76 01/07/19 12:00 Mechanical Ventilator 01/07/19 12:00 77 19 149/62 (91) 100 01/07/19 12:00 30.0 01/07/19 11:04 99.2 01/07/19 11:00 78 17 128/54 (78) 100 01/07/19 10:00 75 16 127/50 (75) 100 01/07/19 09:26 99 12.0 40 01/07/19 09:26 12.0 40 01/07/19 09:24 14.0 40 01/07/19 09:00 74 16 147/57 (87) 100 01/07/19 08:46 100 01/07/19 08:27 30 01/07/19 08:00 30.0 01/07/19 08:00 74 01/07/19 08:00 Mechanical Ventilator 01/07/19 08:00 98.9 71 16 140/51 (80) 100 01/07/19 07:50 71 19 30 01/07/19 07:00 73 16 150/59 (89) 100 01/07/19 06:00 68 16 144/57 (86) 100 01/07/19 05:00 70 20 152/58 (89) 100 01/07/19 04:52 68 17 60 01/07/19 04:12 69 22 60 01/07/19 04:00 Mechanical Ventilator 01/07/19 04:00 30.0 01/07/19 04:00 99.2 67 18 117/50 (72) 100 01/07/19 04:00 64 01/07/19 03:00 66 16 132/67 (88) 100 01/07/19 02:00 65 18 125/57 (79) 100 01/07/19 01:00 68 16 107/49 (68) 100 01/07/19 00:56 68 16 60 01/07/19 00:00 40.0 01/07/19 00:00 98.9 78 16 108/56 (73) 100 01/07/19 00:00 Mechanical Ventilator 01/06/19 23:00 74 19 112/68 (83) 100 01/06/19 22:53 74 19 60 01/06/19 22:00 68 20 131/52 (78) 100 01/06/19 21:09 68 20 60 01/06/19 21:00 68 18 128/64 (85) 100 01/06/19 20:15 Endotracheal Tube 60 01/06/19 20:00 60.0 01/06/19 20:00 Mechanical Ventilator 01/06/19 20:00 98.5 70 21 136/63 (87) 100 01/06/19 20:00 68 01/06/19 19:00 69 18 94/58 (70) 100 01/06/19 19:00 69 18 60 01/06/19 18:00 68 18 126/72 (90) 100 01/06/19 17:26 67 16 100 01/06/19 17:00 67 16 99/51 (67) 100 01/06/19 16:00 Mechanical Ventilator 01/06/19 16:00 69 01/06/19 16:00 97.6 74 16 87/48 (61) 100 01/06/19 16:00 60.0 01/06/19 15:29 74 16 100 Intake and Output 01/06/19 01/07/19 19:00 07:00 Intake Total 175 ml 810 ml Output Total 0 ml Balance 175 ml 810 ml IV Total 175 ml 600 ml Tube Feeding 210 ml Output Urine Total 0 ml Hemodialysis UF 0 ml Laboratory Tests 01/06/19 17:40: White Blood Count 8.5, Red Blood Count 3.35L, Hemoglobin 10.5L, Hematocrit 31.3L , Mean Corpuscular Volume 94, Mean Corpuscular Hemoglobin 31.5H, Mean Corpuscular Hemoglobin Concent 33.6, Red Cell Distribution Width 11.8, Platelet Count 120L, Mean Platelet Volume 7.0, Neutrophils (%) (Auto) 79.3H, Lymphocytes (%) (Auto) 10.7L, Monocytes (%) (Auto) 8.2, Eosinophils (%) (Auto) 0.6, Basophils (%) (Auto) 1.2, Sodium Level 138, Potassium Level 6.7*H, Chloride Level 100, Carbon Dioxide Level 25, Anion Gap 13, Blood Urea Nitrogen 65H, Creatinine 7.2H, Estimat Glomerular Filtration Rate 5.9, Glucose Level 88, Calcium Level 9.9, Phosphorus Level 4.0, Magnesium Level 2.4, Total Bilirubin 0.6, Aspartate Amino Transf (AST/SGOT) 25, Alanine Aminotransferase (ALT/SGPT) 20, Alkaline Phosphatase 184H, Troponin I 0.289H, Total Protein 7.1, Albumin 3.6 , Globulin 3.5, Albumin/Globulin Ratio 1.0 01/07/19 04:10: White Blood Count 8.4, Red Blood Count 3.15L, Hemoglobin 10.2L, Hematocrit 29.5L , Mean Corpuscular Volume 94, Mean Corpuscular Hemoglobin 32.3H, Mean Corpuscular Hemoglobin Concent 34.5, Red Cell Distribution Width 12.1, Platelet Count 116L, Mean Platelet Volume 7.5, Neutrophils (%) (Auto) 82.9H, Lymphocytes (%) (Auto) 7.3L, Monocytes (%) (Auto) 8.3, Eosinophils (%) (Auto) 0.8, Basophils (%) (Auto) 0.6, Sodium Level 138, Potassium Level 3.7, Chloride Level 98, Carbon Dioxide Level 29, Anion Gap 12, Blood Urea Nitrogen 33H, Creatinine 4.8H, Estimat Glomerular Filtration Rate 9.3, Glucose Level 71L, Calcium Level 9.5, Phosphorus Level 2.1L, Total Bilirubin 1.0, Aspartate Amino Transf (AST/ SGOT) 19, Alanine Aminotransferase (ALT/SGPT) 17, Alkaline Phosphatase 146H, Troponin I 0.150H, Total Protein 7.0, Albumin 3.5, Globulin 3.5, Albumin/ Globulin Ratio 1.0, Prothrombin Time 12.0H, Prothromb Time International Ratio 1.1, Activated Partial Thromboplast Time 28, Direct Bilirubin 0.3, Lactate Dehydrogenase 170, Total Creatine Kinase 41, Pro-B-Type Natriuretic Peptide [id number], Triglycerides Level 85, Cholesterol Level 95, LDL Cholesterol 51, HDL Cholesterol 35L, Cholesterol/HDL Ratio 2.7L Height (Feet): 5 Height (Inches): 1.00 Weight (Pounds): 156 General Appearance: no apparent distress Cardiovascular: normal rate Respiratory/Chest: decreased breath sounds Abdomen: distended Wade Rivera MD Jan 07, 2019 15:26
[2019-01-07] MEDS ORDERED: HydrALAZINE 25mg tab ORAL PRN (15:30)
--- NOTE | 2019-01-07 15:34 | Cardiology Report ---
APPROVED REPORT EKG Measurement Heart [id number] [id number] [id number] Normal sinus rhythm Prolonged QT Abnormal ECG
--- NOTE | 2019-01-07 16:49 | NUR ---
NURSE NOTES: No s/sx of acute distress noted. Patient observed sleeping in bed. Breathing even and unlabored on 2LNC. Received orders to transfer to [facility] per Dr. Burt.
[2019-01-07] MEDS: Nitroglycerin 2% oint pkt TOPIC SCH (17:44)
[2019-01-07] MEDS: Pred Forte 1% Opth Susp 1ml BOTH EYES SCH ×2 (17:44→21:14)
--- NOTE | 2019-01-07 18:38 | NUR ---
NURSE NOTES: Patient has bed available in [id number], will endorse transfer to PM shift. Pt kept dry and clean. no s/sx of distress, denies pain at this time. SCD's in place.
--- NOTE | 2019-01-07 19:01 | NUR ---
HAND-OFF: Report given to MELISSA Younger using SBAR.
--- NOTE | 2019-01-07 20:05 | NUR ---
NURSE NOTES: pt awake and alert no c/o pain vs stable iv site patent and intact pt to be transfer [facility]
[2019-01-07] MEDS ORDERED: Metoprolol Tartrate 50mg tab ORAL SCH (21:00)
[2019-01-07] MEDS ORDERED: Maxitrol Opth Susp 5ml LEFT EYE SCH (21:00)
[2019-01-07] MEDS ORDERED: Atorvastatin 80mg tab ORAL SCH (21:00)
[2019-01-07] MEDS: Vigamox Opth Soln 3ml LEFT EYE SCH (21:13)
[2019-01-07] MEDS: Polysporin Opth Oint 3.5gm RIGHT EYE SCH (21:21)
--- NOTE | 2019-01-07 22:00 | NUR ---
NURSE NOTES: reposition and suction no sign of resp distress
[2019-01-08] VITALS (14 sets, daily range): BP systolic 122–158; BP diastolic 45–72
--- NOTE | 2019-01-08 | NUR ---
asleep no sign of resp distress
--- NOTE | 2019-01-08 02:00 | NUR ---
NURSE NOTES: condition unchange repositionand suction
[2019-01-08] MEDS: NovoLOG Insulin Flexpen SUBQ SCH ×2 (06:00→13:06)
[2019-01-08] MEDS: Polysporin Opth Oint 3.5gm RIGHT EYE SCH (06:18)
[2019-01-08 06:25] LABS: HEMOGLOBIN 9.9 G/DL (12.0-16.0); MEAN CORPUSCULAR VOLUME 96 FL (80-99); PLATELET COUNT 94 K/UL (150-450); RED BLOOD COUNT 3.14 M/UL (4.20-5.40); RED CELL DISTRIBUTION WIDTH 12.3 % (11.6-14.8); WHITE BLOOD COUNT 6.9 K/UL (4.8-10.8)
[2019-01-08] MEDS: Nitroglycerin 2% oint pkt TOPIC SCH ×2 (06:26→13:08)
[2019-01-08] MEDS: Vigamox Opth Soln 3ml LEFT EYE SCH ×3 (06:28→23:06)
[2019-01-08 06:43] LABS: ALANINE AMINOTRANSFERASE 13 U/L (12-78); ALBUMIN 3.3 G/DL (3.4-5.0); ALBUMIN/GLOBULIN RATIO 0.9 (1.0-2.7); ALKALINE PHOSPHATASE 146 U/L (46-116); ANION GAP 13 mmol/L (5-15); ASPARTATE AMINO TRANSFERASE 23 U/L (15-37); BLOOD UREA NITROGEN 48 mg/dL (7-18); CALCIUM 9.4 MG/DL (8.5-10.1); CARBON DIOXIDE 27 MMOL/L (21-32); CHLORIDE 96 MMOL/L (98-107); CREATINE KINASE 87 U/L (26-308); CREATININE 6.5 MG/DL (0.55-1.30); POTASSIUM 4.7 MMOL/L (3.5-5.1); SODIUM 136 MMOL/L (136-145)
--- NOTE | 2019-01-08 06:56 | NUR ---
NURSE NOTES: am care bed bath done no distress note
[2019-01-08 07:34] LABS: PHOSPHORUS 5.3 MG/DL (2.5-4.9)
--- NOTE | 2019-01-08 07:39 | NUR ---
HAND-OFF: Report given to .MARI MCGRAW
--- NOTE | 2019-01-08 07:40 | NUR ---
NURSE NOTES: Patient received lying in bed, awake, alert, able to make needs known. Left eye conjunctiva redness noted, right eye no response, opaque. No complains of pain. On room air, respirations even and unlabored. Left upper arm AV shunt positive for bruit and thrill. Right wrist 22g, saline lock, asymptomatic. Sinus rhythm on the monitor. Patient with purewick catheter. Call light placed within reach, safety measures implemented. Pending transfer to [facility].
[2019-01-08] MEDS ORDERED: Vitamin B Complex Tab ORAL SCH (09:00)
[2019-01-08] MEDS: Pantoprazole Inj IVP SCH (09:20)
[2019-01-08] MEDS: Aspirin EC 81mg tab ORAL SCH (09:20)
[2019-01-08] MEDS: Heparin 5000 units/ml inj SUBQ SCH (09:21)
[2019-01-08] MEDS: Pred Forte 1% Opth Susp 1ml BOTH EYES SCH ×5 (09:22→23:06)
--- NOTE | 2019-01-08 09:34 | Pulmonolgy Critical Care Note ---
Critical Care - Asmt/Plan Problems: (1) Cardiac arrest (2) Diabetes mellitus (3) ESRF (end stage renal failure) (4) Non-ST elevation (NSTEMI) myocardial infarction Respiratory: monitor respiratory rate, adjust FIO2, CXR Cardiac: continue to monitor HR/BP Renal: F/U I&O Gastrointestinal: continue feedings/current rate Endocrine: monitor blood sugar, continue sliding scale insulin Hematologic: monitor H/H, transfuse if hgb<8.5 Neurologic: PRN Ativan, PRN Morphine, keep patient comfortable Disposition: transfer to Notes Reviewed: cardio, renal Discussed with: nurses, consultants, counseling case managermanager apple - Objective Last 24 Hour Vital Signs Date Time Temp Pulse Resp B/P (MAP) Pulse Ox O2 Delivery O2 Flow Rate FiO2 01/08/19 07:07 70 19 100 01/08/19 06:26 143/57 01/08/19 06:00 70 19 100 01/08/19 05:00 68 16 138/58 (84) 100 01/08/19 04:00 Nasal Cannula 2.0 01/08/19 04:00 66 01/08/19 04:00 68 16 140/58 (85) 100 01/08/19 03:00 98.6 68 16 134/56 (82) 100 01/08/19 02:00 66 17 124/48 (73) 100 01/08/19 01:30 64 16 122/51 (74) 100 01/08/19 01:00 64 16 122/48 (72) 100 01/08/19 00:00 67 18 129/53 (78) 100 01/08/19 00:00 Nasal Cannula 2.0 01/08/19 00:00 66 01/07/19 23:00 98.8 71 20 142/50 (80) 100 01/07/19 22:00 67 20 162/53 (89) 100 01/07/19 21:05 99 Nasal Cannula 2.0 28 01/07/19 21:05 2.0 28 01/07/19 21:00 67 20 132/55 (80) 100 01/07/19 20:00 69 19 132/54 (80) 100 01/07/19 20:00 Nasal Cannula 2.0 01/07/19 20:00 69 01/07/19 19:00 73 21 113/53 (73) 100 01/07/19 18:00 69 21 119/56 (77) 100 01/07/19 17:44 118/60 01/07/19 17:00 68 21 118/60 (79) 100 01/07/19 16:00 67 01/07/19 16:00 99.3 68 21 116/55 (75) 100 01/07/19 16:00 Nasal Cannula 2.0 01/07/19 15:00 71 21 118/58 (78) 100 01/07/19 14:00 73 21 138/63 (88) 100 01/07/19 13:00 74 17 131/61 (84) 100 01/07/19 12:11 78 17 100 01/07/19 12:00 76 01/07/19 12:00 Mechanical Ventilator 01/07/19 12:00 77 19 149/62 (91) 100 01/07/19 12:00 30.0 01/07/19 11:04 99.2 01/07/19 11:00 78 17 128/54 (78) 100 01/07/19 10:00 75 16 127/50 (75) 100 Status: awake, sedated Condition: critical HEENT: atraumatic Neck: full ROM Lungs: clear Heart: HR/BP stable, regular Abdomen: non-tender, active bowel sounds, feeding tube Extremities: edema Decubiti: location, stage Accucheck: 106 Critical Care - Subjective ROS Limited/Unobtainable: Yes Interval Events: doing better, having breakfast FI02: 28 Vent Support Breath Rate: 16 Vent Support Mode: AC Vent Tidal Volume: 600 Sputum Amount: Scant PEEP: 5.0 PIP: 37 Tube Feeding Amount: 30 I&O: Intake and Output 01/07/19 01/08/19 18:59 06:59 Intake Total 700 ml Output Total 5 ml 0 ml Balance 695 ml 0 ml Intake Oral 100 ml Free Water 60 ml IV Total 300 ml Tube Feeding 90 ml Other 150 ml Output Urine Total 5 ml 0 ml ET-Tube: 7.0 ET Position: 22 Labs: Laboratory Tests Test 01/08/19 05:35 White Blood Count 6.9 K/UL (4.8-10.8) Red Blood Count 3.14 M/UL (4.20-5.40) L Hemoglobin 9.9 G/DL (12.0-16.0) L Hematocrit 30.0 % (37.0-47.0) L Mean Corpuscular Volume 96 FL (80-99) Mean Corpuscular Hemoglobin 31.6 PG (27.0-31.0) H Mean Corpuscular Hemoglobin Concent 33.0 G/DL (32.0-36.0) Red Cell Distribution Width 12.3 % (11.6-14.8) Platelet Count 94 K/UL (150-450) L Mean Platelet Volume 8.0 FL (6.5-10.1) Neutrophils (%) (Auto) % (45.0-75.0) Lymphocytes (%) (Auto) % (20.0-45.0) Monocytes (%) (Auto) % (1.0-10.0) Eosinophils (%) (Auto) % (0.0-3.0) Basophils (%) (Auto) % (0.0-2.0) Sodium Level 136 MMOL/L (136-145) Potassium Level 4.7 MMOL/L (3.5-5.1) Chloride Level 96 MMOL/L (98-107) L Carbon Dioxide Level 27 MMOL/L (21-32) Anion Gap 13 mmol/L (5-15) Blood Urea Nitrogen 48 mg/dL (7-18) H Creatinine 6.5 MG/DL (0.55-1.30) H Estimat Glomerular Filtration Rate 6.6 mL/min (>60) Glucose Level 100 MG/DL (74-106) Hemoglobin A1c 8.9 % (4.3-6.0) H Uric Acid 5.2 MG/DL (2.6-7.2) Calcium Level 9.4 MG/DL (8.5-10.1) Phosphorus Level 5.3 MG/DL (2.5-4.9) H Magnesium Level 2.1 MG/DL (1.8-2.4) Total Bilirubin 1.0 MG/DL (0.2-1.0) Gamma Glutamyl Transpeptidase 70 U/L (5-85) Aspartate Amino Transf (AST/SGOT) 23 U/L (15-37) Alanine Aminotransferase (ALT/SGPT) 13 U/L (12-78) Alkaline Phosphatase 146 U/L (46-116) H Total Creatine Kinase 87 U/L (26-308) Troponin I 0.056 ng/mL (0.000-0.056) Pro-B-Type Natriuretic Peptide 90393 pg/mL (0-125) H Total Protein 7.1 G/DL (6.4-8.2) Albumin 3.3 G/DL (3.4-5.0) L Globulin 3.8 g/dL Albumin/Globulin Ratio 0.9 (1.0-2.7) L Vitamin B12 Level 798 PG/ML (193-986) Thyroid Stimulating Hormone (TSH) 3.504 uiU/mL (0.358-3.740) Mirza Burt MD Jan 08, 2019 09:34
--- NOTE | 2019-01-08 09:38 | NUR ---
CASE MANAGEMENT:REVIEW 01/08/19 SI: CARDIAC ARREST. NSTEMI. ESRD 98.6 70 19 143/57 99% ON 2L/NC H/H-9.9/30.0 BUN+48 CR+6.5 IS: MOXIFLOXACIN EYE GTT Q8HRS NITRO BID 1" TID NEURONTIN PO QD IV PROTONIX Q12 ASA PO QD : ICU STATUS
--- NOTE | 2019-01-08 12:00 | NUR ---
NURSE NOTES: Patient lying in bed comfortable. No signs of discomfort. Respirations even and unlabored.
--- NOTE | 2019-01-08 12:14 | Nephrology Progress Note ---
Assessment/Plan Problem List: (1) ESRF (end stage renal failure) (2) Cardiac arrest (3) Diabetes mellitus Assessment ESRD s/p Cardiac Arrest Respiratory failure on Vent DM Plan Now extubated- Dialysed 01/06 for high K Post extubation care Albumin bolus as needed Protonix IV dialysis next 01/09 unless needed earlier per cardiology and pulmonary advise Subjective ROS Limited/Unobtainable: No Constitutional: Reports: malaise Objective Objective Last 24 Hour Vital Signs Date Time Temp Pulse Resp B/P (MAP) Pulse Ox O2 Delivery O2 Flow Rate FiO2 01/08/19 11:00 71 15 134/55 (81) 100 01/08/19 10:00 71 17 133/48 (76) 100 01/08/19 09:35 99 Nasal Cannula 2.0 28 01/08/19 09:35 2.0 28 01/08/19 09:00 68 14 127/52 (77) 100 01/08/19 08:00 98.3 69 14 124/45 (71) 100 01/08/19 08:00 Room Air 01/08/19 08:00 71 01/08/19 07:07 70 19 100 01/08/19 06:26 143/57 01/08/19 06:00 70 19 100 01/08/19 05:00 68 16 138/58 (84) 100 01/08/19 04:00 Nasal Cannula 2.0 01/08/19 04:00 66 01/08/19 04:00 68 16 140/58 (85) 100 01/08/19 03:00 98.6 68 16 134/56 (82) 100 01/08/19 02:00 66 17 124/48 (73) 100 01/08/19 01:30 64 16 122/51 (74) 100 01/08/19 01:00 64 16 122/48 (72) 100 01/08/19 00:00 67 18 129/53 (78) 100 01/08/19 00:00 Nasal Cannula 2.0 01/08/19 00:00 66 01/07/19 23:00 98.8 71 20 142/50 (80) 100 01/07/19 22:00 67 20 162/53 (89) 100 01/07/19 21:05 99 Nasal Cannula 2.0 28 01/07/19 21:05 2.0 28 01/07/19 21:00 67 20 132/55 (80) 100 01/07/19 20:00 69 19 132/54 (80) 100 01/07/19 20:00 Nasal Cannula 2.0 01/07/19 20:00 69 01/07/19 19:00 73 21 113/53 (73) 100 01/07/19 18:00 69 21 119/56 (77) 100 01/07/19 17:44 118/60 01/07/19 17:00 68 21 118/60 (79) 100 01/07/19 16:00 67 01/07/19 16:00 99.3 68 21 116/55 (75) 100 01/07/19 16:00 Nasal Cannula 2.0 01/07/19 15:00 71 21 118/58 (78) 100 01/07/19 14:00 73 21 138/63 (88) 100 01/07/19 13:00 74 17 131/61 (84) 100 Intake and Output 01/07/19 01/08/19 18:59 06:59 Intake Total 700 ml Output Total 5 ml 0 ml Balance 695 ml 0 ml Intake Oral 100 ml Free Water 60 ml IV Total 300 ml Tube Feeding 90 ml Other 150 ml Output Urine Total 5 ml 0 ml Laboratory Tests 01/08/19 05:35: White Blood Count 6.9, Red Blood Count 3.14L, Hemoglobin 9.9L, Hematocrit 30.0L , Mean Corpuscular Volume 96, Mean Corpuscular Hemoglobin 31.6H, Mean Corpuscular Hemoglobin Concent 33.0, Red Cell Distribution Width 12.3, Platelet Count 94L, Mean Platelet Volume 8.0, Neutrophils (%) (Auto) , Lymphocytes (%) ( Auto) , Monocytes (%) (Auto) , Eosinophils (%) (Auto) , Basophils (%) (Auto) , Sodium Level 136, Potassium Level 4.7, Chloride Level 96L, Carbon Dioxide Level 27, Anion Gap 13, Blood Urea Nitrogen 48H, Creatinine 6.5H, Estimat Glomerular Filtration Rate 6.6, Glucose Level 100, Hemoglobin A1c 8.9H, Uric Acid 5.2, Calcium Level 9.4, Phosphorus Level 5.3H, Magnesium Level 2.1, Total Bilirubin 1.0, Gamma Glutamyl Transpeptidase 70, Aspartate Amino Transf (AST/SGOT) 23, Alanine Aminotransferase (ALT/SGPT) 13, Alkaline Phosphatase 146H, Total Creatine Kinase 87, Troponin I 0.056, Pro-B-Type Natriuretic Peptide 63430D, Total Protein 7.1, Albumin 3.3L, Globulin 3.8, Albumin/Globulin Ratio 0.9L, Vitamin B12 Level 798, Thyroid Stimulating Hormone (TSH) 3.504 Height (Feet): 5 Height (Inches): 1.00 Weight (Pounds): 156 General Appearance: no apparent distress Cardiovascular: normal rate Respiratory/Chest: decreased breath sounds Abdomen: distended Wade Rivera MD Jan 08, 2019 12:14
--- NOTE | 2019-01-08 15:01 | NUR ---
NURSE NOTES: access consultant notified and was at bedside, stated he will come the following day (01/09/2019) for Dialysis.
--- NOTE | 2019-01-08 15:47 | NUR ---
NURSE NOTES: Pt transfered to [facility] per protocol with oxygen, belongings. Report given to MELISSA Hendrickson at bedside. Pt is in no acute distress.
--- NOTE | 2019-01-08 15:54 | NUR ---
nurse notes received patient from ICU via bed, patient awake, alert, oriented x4, danish speaking no sign of distress, IV site swollen dcd, tried to insert 2x, but unsuccesfull, LORENZA Charge nurse aware, ON FALL PRECAUTION SARINA
[2019-01-08] MEDS ORDERED: Albuterol/Ipratropium 3ml neb HHN PRN (15:59)
[2019-01-08] MEDS ORDERED: HydrALAZINE 25mg tab ORAL PRN (15:59)
[2019-01-08] MEDS ORDERED: HYDROcodone/Acetamin 5/325 tab ORAL PRN (15:59)
[2019-01-08] MEDS ORDERED: LORazepam Inj 2mg/ml 1ml IV PRN (16:00)
[2019-01-08] MEDS ORDERED: Nitroglycerin Subl 0.4mg tab SL PRN ×2 (16:00→22:30)
[2019-01-08] MEDS ORDERED: Morphine Sulfate 4mg/ml Inj (IV USE ONLY) IVP PRN (16:00)
[2019-01-08] MEDS ORDERED: Nitroglycerin 2% oint pkt TOPIC SCH (18:00)
[2019-01-08] MEDS ORDERED: NovoLOG Insulin Flexpen SUBQ SCH (18:00)
--- NOTE | 2019-01-08 18:08 | Internal Med Progress Note ---
Subjective Physician Name HectorGlenn Attending Physician Mirza Burt MD Current Medications Medications (Trade) Dose Ordered Sig/Steven Route PRN Reason Start Time Stop Time Status Last Admin Dose Admin Acetaminophen (Tylenol) 650 mg Q4H PRN ORAL Mild Pain (Pain Scale 1-3) 01/08/19 15:58 02/05/19 15:57 Acetaminophen (Tylenol) 650 mg Q4H PRN ORAL T>100.5 01/08/19 15:58 02/05/19 15:57 Acetaminophen/ Hydrocodone Bitart ([place] 5/325) 1 tab Q4H PRN ORAL Moderate Pain (Pain Scale 4-6) 01/08/19 15:59 01/13/19 15:58 Albuterol/ Ipratropium (Albuterol/ Ipratropium) 3 ml Q4H PRN HHN Shortness of Breath 01/08/19 15:59 01/11/19 15:58 Aspirin (Ecotrin) 81 mg DAILY ORAL 01/09/19 09:00 02/05/19 18:44 Atorvastatin Calcium (Lipitor) 80 mg BEDTIME ORAL 01/08/19 21:00 02/06/19 20:59 Bacitracin/ Polymyxin B Sulfate (Polysporin Op Oint) 1 applic BEDTIME RIGHT EYE 01/08/19 21:00 01/14/19 20:59 Dextrose (Dextrose 50%) 25 ml Q30M PRN IV Hypoglycemia 01/08/19 16:00 02/05/19 12:59 Dextrose (Dextrose 50%) 50 ml Q30M PRN IV Hypoglycemia 01/08/19 16:00 02/05/19 12:59 Gabapentin (Neurontin) 100 mg DAILY ORAL 01/09/19 09:00 02/06/19 12:29 Heparin Sodium (Porcine) (Heparin 5000 units/ml) 5,000 units EVERY 12 HOURS SUBQ 01/08/19 21:00 02/05/19 01:29 Hydralazine HCl (Apresoline) 25 mg Q4H PRN ORAL SBP > 155mmHg 01/08/19 15:59 02/06/19 15:58 Insulin Aspart (NovoLOG) EVERY 6 HOURS SUBQ 01/08/19 18:00 02/05/19 16:29 Lorazepam (Ativan 2mg/ml 1ml) 2 mg Q2H PRN IV agitation 01/08/19 16:00 01/13/19 15:59 Morphine Sulfate (Morphine Sulfate) 4 mg Q4H PRN IVP Severe Pain (Pain Scale 7-10) 01/08/19 16:00 01/13/19 15:59 Moxifloxacin HCl (Vigamox) 1 drop Q8HR LEFT EYE 01/08/19 22:00 01/14/19 21:59 Neomycin/ Polymyxin/ Dexamethasone (Maxitrol Opth Susp) 1 drop BEDTIME LEFT EYE 01/08/19 21:00 01/14/19 20:59 Nitroglycerin (Nitro-Bid) 1 inch TID@0600,1200,1800 TOPIC 01/08/19 18:00 02/06/19 17:59 01/08/19 17:31 Nitroglycerin (Ntg) 0.4 mg Q5MIN X 3 DOSES PRN SL Prn Chest Pain 01/08/19 16:00 02/05/19 12:29 Ondansetron HCl (Zofran) 4 mg Q4H PRN IVP Nausea & Vomiting 01/08/19 17:00 02/05/19 12:59 Pantoprazole (Protonix) 40 mg Q12HR ORAL 01/08/19 21:00 02/07/19 20:59 Prednisolone Acetate (Pred Forte) 1 drop QID BOTH EYES 01/08/19 18:00 02/06/19 17:59 01/08/19 17:47 Sevelamer Carbonate (Renvela) 1,600 mg THREE TIMES A DAY ORAL 01/08/19 18:00 02/07/19 08:59 01/08/19 17:31 Vitamin B Complex (Vitamin B Complex) 1 tab DAILY ORAL 01/09/19 09:00 02/07/19 08:59 Allergies: Coded Allergies: PENICILLINS (Unverified Allergy, Severe, 01/03/19) RASH Subjective Transfer to medical floor from ICU, awake, alert, responsive, NAD, No CP or SOB. Objective Last Vital Signs Date Time Temp Pulse Resp B/P (MAP) Pulse Ox O2 Delivery O2 Flow Rate FiO2 01/08/19 17:31 158/72 01/08/19 16:00 Room Air 01/08/19 15:45 98.1 74 18 100 01/08/19 09:35 2.0 28 Laboratory Tests Test 01/08/19 05:35 01/08/19 13:40 White Blood Count 6.9 K/UL (4.8-10.8) Red Blood Count 3.14 M/UL (4.20-5.40) L Hemoglobin 9.9 G/DL (12.0-16.0) L Hematocrit 30.0 % (37.0-47.0) L Mean Corpuscular Volume 96 FL (80-99) Mean Corpuscular Hemoglobin 31.6 PG (27.0-31.0) H Mean Corpuscular Hemoglobin Concent 33.0 G/DL (32.0-36.0) Red Cell Distribution Width 12.3 % (11.6-14.8) Platelet Count 94 K/UL (150-450) L Mean Platelet Volume 8.0 FL (6.5-10.1) Neutrophils (%) (Auto) % (45.0-75.0) Lymphocytes (%) (Auto) % (20.0-45.0) Monocytes (%) (Auto) % (1.0-10.0) Eosinophils (%) (Auto) % (0.0-3.0) Basophils (%) (Auto) % (0.0-2.0) Sodium Level 136 MMOL/L (136-145) Potassium Level 4.7 MMOL/L (3.5-5.1) Chloride Level 96 MMOL/L (98-107) L Carbon Dioxide Level 27 MMOL/L (21-32) Anion Gap 13 mmol/L (5-15) Blood Urea Nitrogen 48 mg/dL (7-18) H Creatinine 6.5 MG/DL (0.55-1.30) H Estimat Glomerular Filtration Rate 6.6 mL/min (>60) Glucose Level 100 MG/DL (74-106) Hemoglobin A1c 8.9 % (4.3-6.0) H Uric Acid 5.2 MG/DL (2.6-7.2) Calcium Level 9.4 MG/DL (8.5-10.1) Phosphorus Level 5.3 MG/DL (2.5-4.9) H Magnesium Level 2.1 MG/DL (1.8-2.4) Total Bilirubin 1.0 MG/DL (0.2-1.0) Gamma Glutamyl Transpeptidase 70 U/L (5-85) Aspartate Amino Transf (AST/SGOT) 23 U/L (15-37) Alanine Aminotransferase (ALT/SGPT) 13 U/L (12-78) Alkaline Phosphatase 146 U/L (46-116) H Total Creatine Kinase 87 U/L (26-308) Troponin I 0.056 ng/mL (0.000-0.056) 0.034 ng/mL (0.000-0.056) Pro-B-Type Natriuretic Peptide 43203 pg/mL (0-125) H Total Protein 7.1 G/DL (6.4-8.2) Albumin 3.3 G/DL (3.4-5.0) L Globulin 3.8 g/dL Albumin/Globulin Ratio 0.9 (1.0-2.7) L Vitamin B12 Level 798 PG/ML (193-986) Thyroid Stimulating Hormone (TSH) 3.504 uiU/mL (0.358-3.740) Intake and Output 01/07/19 01/08/19 19:00 07:00 Intake Total 620 ml Output Total 5 ml 0 ml Balance 615 ml 0 ml Intake Oral 100 ml Free Water 60 ml IV Total 250 ml Tube Feeding 60 ml Other 150 ml Output Urine Total 5 ml 0 ml Objective General: A&O X 3, NAD, awake, alert, responsive. HEENT: NCAT, anicteric sclera, erythematous conjunctiva, PERRL, EOMI, eyes both covered. Neck: Supple, no significant jugular venous distention, Lungs: good respiratory affords, decreased air at the bases, no Wheeze or Rales. Heart: Regular rate and rhythm, normal S1/S2, no murmur, distant heart sounds Abdomen: soft, not tender, nondistended. Normoactive bowel sounds, obesity. Extremities: No Cyanosis , clubbing or edema, left upper extremity AV fistula with thrill.. Neuro: motor 5/5 all extremities, CN 2-12 intact. Skin: warm, no rash. Assessment/Plan Assessment/Plan 1. Acute hypoxemic respiratory failure. 2. Hypoxemic arrest. 3. End-stage renal disease on hemodialysis. 4. Left eye retinal detachment. 5. Mild obesity. 6. Atherosclerotic heart disease, coronary artery disease. 7. Hypertension. 8. Diabetic type II. 9. Elevated troponin possible ACS Plan: Follow-up with Dr. Burt recommendation for ventilation management. Follow-up with Dr. Rivera recommendation for dialysis. F/U with Dr. De La Cruz from cardiology. Monitor laboratory Follow-up with the glucose monitoring. Monitor blood pressure closely. DVT prophylaxis with SCD. CODE STATUS is full code at this time. PT Mobility, Penicillin allergy. Glenn Young MD Jan 08, 2019 18:08
--- NOTE | 2019-01-08 19:22 | NUR ---
HAND-OFF: Report given to MELISSA Cormier. MELISSA BRANCH
--- NOTE | 2019-01-08 19:22 | NUR ---
NURSE NOTES: Received patient on bed awake, no s/s of any distress, on O2@2L via NC, denies any pain. IV line patent and intact, Bed in low position and locked, call light within reach, will continue to monitor.
--- NOTE | 2019-01-08 19:57 | Cardiology Progress Note ---
Assessment/Plan Assessment/Plan 1. Hypoxic arrest. 2. Bradycardia, probably secondary to hypoxemia. 3. Diabetes mellitus. 4. Hypertension. 5. End-stage renal disease, on hemodialysis. 6. Peripheral neuropathy history. 7. Abn ekg trop min increased and again seems decreased concerning for acs denies any cp ekg is abn with new t wve changes may benefit from invasive eval in light of abn ekg echo performed to be reviewed ekg as well keep on asa will use ntp for now if any cp will start on anticoagulation keep on statin and asa is on med surg will trasfer to tele and see if we can arrange for tele will see if need hmo hostpial tranfer or to [facility] Subjective Cardiovascular: Denies: chest pain, lightheadedness, palpitations Respiratory: Denies: shortness of breath Gastrointestinal/Abdominal: Denies: abdominal pain Genitourinary: Denies: burning Objective Last 24 Hour Vital Signs Date Time Temp Pulse Resp B/P (MAP) Pulse Ox O2 Delivery O2 Flow Rate FiO2 01/08/19 17:31 158/72 01/08/19 16:00 Room Air 01/08/19 15:54 Room Air 01/08/19 15:45 98.1 74 18 158/72 (100) 100 01/08/19 13:08 156/70 01/08/19 13:00 98.4 73 17 156/70 (98) 100 01/08/19 12:00 Room Air 01/08/19 12:00 71 01/08/19 12:00 71 17 150/63 (92) 100 01/08/19 11:00 71 15 134/55 (81) 100 01/08/19 10:00 71 17 133/48 (76) 100 01/08/19 09:35 99 Nasal Cannula 2.0 28 01/08/19 09:35 2.0 28 01/08/19 09:00 68 14 127/52 (77) 100 01/08/19 08:00 98.3 69 14 124/45 (71) 100 01/08/19 08:00 Room Air 01/08/19 08:00 71 01/08/19 07:07 70 19 100 01/08/19 06:26 143/57 01/08/19 06:00 70 19 100 01/08/19 05:00 68 16 138/58 (84) 100 01/08/19 04:00 Nasal Cannula 2.0 01/08/19 04:00 66 01/08/19 04:00 68 16 140/58 (85) 100 01/08/19 03:00 98.6 68 16 134/56 (82) 100 01/08/19 02:00 66 17 124/48 (73) 100 01/08/19 01:30 64 16 122/51 (74) 100 01/08/19 01:00 64 16 122/48 (72) 100 01/08/19 00:00 67 18 129/53 (78) 100 01/08/19 00:00 Nasal Cannula 2.0 01/08/19 00:00 66 01/07/19 23:00 98.8 71 20 142/50 (80) 100 01/07/19 22:00 67 20 162/53 (89) 100 01/07/19 21:05 99 Nasal Cannula 2.0 28 01/07/19 21:05 2.0 28 01/07/19 21:00 67 20 132/55 (80) 100 01/07/19 20:00 69 19 132/54 (80) 100 01/07/19 20:00 Nasal Cannula 2.0 01/07/19 20:00 69 General Appearance: no apparent distress, alert Neck: supple Cardiovascular: normal rate Respiratory/Chest: lungs clear Abdomen: normal bowel sounds, non tender, soft Extremities: no swelling Intake and Output 01/07/19 01/08/19 19:00 07:00 Intake Total 620 ml Output Total 5 ml 0 ml Balance 615 ml 0 ml Intake Oral 100 ml Free Water 60 ml IV Total 250 ml Tube Feeding 60 ml Other 150 ml Output Urine Total 5 ml 0 ml Laboratory Tests Test 01/08/19 05:35 01/08/19 13:40 White Blood Count 6.9 K/UL (4.8-10.8) Red Blood Count 3.14 M/UL (4.20-5.40) L Hemoglobin 9.9 G/DL (12.0-16.0) L Hematocrit 30.0 % (37.0-47.0) L Mean Corpuscular Volume 96 FL (80-99) Mean Corpuscular Hemoglobin 31.6 PG (27.0-31.0) H Mean Corpuscular Hemoglobin Concent 33.0 G/DL (32.0-36.0) Red Cell Distribution Width 12.3 % (11.6-14.8) Platelet Count 94 K/UL (150-450) L Mean Platelet Volume 8.0 FL (6.5-10.1) Neutrophils (%) (Auto) % (45.0-75.0) Lymphocytes (%) (Auto) % (20.0-45.0) Monocytes (%) (Auto) % (1.0-10.0) Eosinophils (%) (Auto) % (0.0-3.0) Basophils (%) (Auto) % (0.0-2.0) Sodium Level 136 MMOL/L (136-145) Potassium Level 4.7 MMOL/L (3.5-5.1) Chloride Level 96 MMOL/L (98-107) L Carbon Dioxide Level 27 MMOL/L (21-32) Anion Gap 13 mmol/L (5-15) Blood Urea Nitrogen 48 mg/dL (7-18) H Creatinine 6.5 MG/DL (0.55-1.30) H Estimat Glomerular Filtration Rate 6.6 mL/min (>60) Glucose Level 100 MG/DL (74-106) Hemoglobin A1c 8.9 % (4.3-6.0) H Uric Acid 5.2 MG/DL (2.6-7.2) Calcium Level 9.4 MG/DL (8.5-10.1) Phosphorus Level 5.3 MG/DL (2.5-4.9) H Magnesium Level 2.1 MG/DL (1.8-2.4) Total Bilirubin 1.0 MG/DL (0.2-1.0) Gamma Glutamyl Transpeptidase 70 U/L (5-85) Aspartate Amino Transf (AST/SGOT) 23 U/L (15-37) Alanine Aminotransferase (ALT/SGPT) 13 U/L (12-78) Alkaline Phosphatase 146 U/L (46-116) H Total Creatine Kinase 87 U/L (26-308) Troponin I 0.056 ng/mL (0.000-0.056) 0.034 ng/mL (0.000-0.056) Pro-B-Type Natriuretic Peptide 09157 pg/mL (0-125) H Total Protein 7.1 G/DL (6.4-8.2) Albumin 3.3 G/DL (3.4-5.0) L Globulin 3.8 g/dL Albumin/Globulin Ratio 0.9 (1.0-2.7) L Vitamin B12 Level 798 PG/ML (193-986) Thyroid Stimulating Hormone (TSH) 3.504 uiU/mL (0.358-3.740) Elias Blackmon MD Jan 08, 2019 19:57
[2019-01-08] MEDS ORDERED: Polysporin Opth Oint 3.5gm RIGHT EYE SCH (21:00)
[2019-01-08] MEDS ORDERED: Atorvastatin 80mg tab ORAL SCH (21:00)
[2019-01-08] MEDS ORDERED: Heparin 5000 units/ml inj SUBQ SCH (21:00)
[2019-01-08] MEDS ORDERED: Pantoprazole Inj IVP SCH (21:00)
[2019-01-08] MEDS ORDERED: Maxitrol Opth Susp 5ml LEFT EYE SCH (21:00)
--- NOTE | 2019-01-08 21:30 | NUR ---
NURSE NOTES: Transferred patient to room 206-1, report given to Mara TORRES. Patient is stable and in no acute distress. Addendum: 01/09/19 at 0136 by Rigoberto Medellin RN Called [facility] to inform patient's transfer but no answer, answering machine is not available.
--- NOTE | 2019-01-08 21:30 | NUR ---
NURSE NOTES: Received report from MELISSA Cormier from 4E. Patient in bed awake showing no signs of acute distress. AOx4. Respiration even and non labored on 2L NC. No SOB noted. HOB elevated. IV line patent and intact. Vitals stable Bed in lowest position. Call light within reach. All needs attended and met. Will continue plan of care.
[2019-01-08] MEDS ORDERED: Vigamox Opth Soln 3ml LEFT EYE SCH (22:00)
[2019-01-09] VITALS: BP 95/54
[2019-01-09] MEDS ORDERED: HYDROcodone/Acetamin 5/325 tab ORAL PRN
[2019-01-09] MEDS ORDERED: Morphine Sulfate 4mg/ml Inj (IV USE ONLY) IVP PRN
[2019-01-09] MEDS ORDERED: Albuterol/Ipratropium 3ml neb HHN PRN
[2019-01-09] MEDS ORDERED: LORazepam Inj 2mg/ml 1ml IV PRN
[2019-01-09 04:00] VITALS: BP 138/62
[2019-01-09] MEDS: Vigamox Opth Soln 3ml LEFT EYE SCH ×3 (05:54→21:56)
[2019-01-09] MEDS: Nitroglycerin 2% oint pkt TOPIC SCH ×3 (05:55→17:50)
[2019-01-09] MEDS ORDERED: NovoLOG Insulin Flexpen SUBQ SCH ×2 (06:30)
[2019-01-09] MEDS: NovoLOG Insulin Flexpen SUBQ SCH ×4 (06:38→21:00)
--- NOTE | 2019-01-09 07:32 | NUR ---
HAND-OFF: Report given to MELISSA Hood.
--- NOTE | 2019-01-09 07:33 | NUR ---
NURSE NOTES: RECEIVED PATIENT FROM Luan ULLOA RN. PATIENT IS LYING IN BED, ASLEEP. HOOKED TO VOICE PATHOLOGIST. ON VENTI MASK 10, FIO2 AT 40. NO SIGNS OF DISTRESS. IV ON R AC G20, SL. AV SHUNT ON L ARM FOR HD. CALL LIGHT WITHIN REACH. BED AT LOWEST POSITION. SIDE RAILS UP. WILL CONTINUE TO MONITOR.
[2019-01-09 08:00] VITALS: BP 130/60
[2019-01-09] MEDS ORDERED: Aspirin EC 81mg tab ORAL SCH ×2 (09:00)
[2019-01-09] MEDS ORDERED: Vitamin B Complex Tab ORAL SCH (09:00)
[2019-01-09] MEDS: Vitamin B Complex Tab ORAL SCH (09:09)
[2019-01-09] MEDS: Pred Forte 1% Opth Susp 1ml BOTH EYES SCH ×4 (09:13→21:46)
--- NOTE | 2019-01-09 11:48 | Pulmonology Progress Note ---
Assessment/Plan Problems: (1) Cardiac arrest (2) Non-ST elevation (NSTEMI) myocardial infarction (3) Diabetes mellitus (4) ESRF (end stage renal failure) Assessment/Plan all reviewed Echo reviewed, EF hyperdynamic PA pressure 40 ABN EGK cardiology recommending Cardiac cath sliding scale diabetic diet keep in teli Subjective ROS Limited/Unobtainable: No Constitutional: Reports: no symptoms HEENT: Repors: no symptoms Allergies: Coded Allergies: PENICILLINS (Unverified Allergy, Severe, 01/03/19) RASH Objective Last 24 Hour Vital Signs Date Time Temp Pulse Resp B/P (MAP) Pulse Ox O2 Delivery O2 Flow Rate FiO2 01/09/19 09:00 Venturi Mask 10.0 01/09/19 08:00 97.7 65 21 130/60 (83) 93 01/09/19 08:00 67 01/09/19 05:55 138/62 01/09/19 04:00 97.7 69 20 138/62 (87) 98 01/09/19 04:00 66 01/09/19 00:00 70 01/09/19 00:00 97.8 69 19 95/54 (68) 90 01/08/19 22:13 68 01/08/19 20:44 77 20 Nasal Cannula 3.0 32 01/08/19 20:44 Nasal Cannula 3.0 32 01/08/19 20:43 95 Nasal Cannula 3.0 32 01/08/19 20:00 Venturi Mask 10.0 01/08/19 17:31 158/72 01/08/19 16:00 Room Air 01/08/19 15:54 Room Air 01/08/19 15:45 98.1 74 18 158/72 (100) 100 01/08/19 13:08 156/70 01/08/19 13:00 98.4 73 17 156/70 (98) 100 01/08/19 12:00 Room Air 01/08/19 12:00 71 01/08/19 12:00 71 17 150/63 (92) 100 Intake and Output 01/08/19 01/09/19 18:59 06:59 Intake Total 320 ml Output Total 0 ml Balance 320 ml Intake Oral 320 ml Output Urine Total 0 ml # Voids 1 Objective General Appearance: WNL HEENT: normocephalic, atraumatic Respiratory/Chest: chest wall non-tender, lungs clear Cardiovascular: normal peripheral pulses, regular rhythm Abdomen: normal bowel sounds, soft, non tender Genitourinary: normal external genitalia Extremities: no clubbing Laboratory Tests 01/08/19 13:40: Troponin I 0.034 Current Medications Medications (Trade) Dose Ordered Sig/Steven Route PRN Reason Start Time Stop Time Status Last Admin Dose Admin Acetaminophen (Tylenol) 650 mg Q4H PRN ORAL Mild Pain (Pain Scale 1-3) 01/09/19 00:00 02/05/19 15:57 Acetaminophen (Tylenol) 650 mg Q4H PRN ORAL T>100.5 01/09/19 00:00 02/05/19 15:57 Acetaminophen/ Hydrocodone Bitart ([place] 5/325) 1 tab Q4H PRN ORAL Moderate Pain (Pain Scale 4-6) 01/09/19 00:00 01/13/19 15:58 Albuterol/ Ipratropium (Albuterol/ Ipratropium) 3 ml Q4H PRN HHN Shortness of Breath 01/09/19 00:00 01/11/19 15:58 Aspirin (Ecotrin) 81 mg DAILY ORAL 01/09/19 09:00 02/05/19 18:44 01/09/19 09:09 Atorvastatin Calcium (Lipitor) 80 mg BEDTIME ORAL 01/09/19 21:00 02/06/19 20:59 Bacitracin/ Polymyxin B Sulfate (Polysporin Op Oint) 1 applic BEDTIME RIGHT EYE 01/09/19 21:00 01/14/19 20:59 Dextrose (Dextrose 50%) 25 ml Q30M PRN IV Hypoglycemia 01/09/19 01:45 02/08/19 01:44 Dextrose (Dextrose 50%) 50 ml Q30M PRN IV Hypoglycemia 01/09/19 01:45 02/08/19 01:44 Gabapentin (Neurontin) 100 mg DAILY ORAL 01/09/19 09:00 02/06/19 12:29 01/09/19 09:09 Heparin Sodium (Porcine) (Heparin 5000 units/ml) 5,000 units EVERY 12 HOURS SUBQ 01/08/19 22:30 02/05/19 01:29 UNV Hydralazine HCl (Apresoline) 25 mg Q4H PRN ORAL SBP > 155mmHg 01/09/19 00:00 02/06/19 15:58 Insulin Aspart (NovoLOG) BEFORE MEALS AND HS SUBQ 01/09/19 06:30 02/08/19 06:29 01/09/19 06:38 Lorazepam (Ativan 2mg/ml 1ml) 2 mg Q2H PRN IV agitation 01/09/19 00:00 01/13/19 15:59 Morphine Sulfate (Morphine Sulfate) 4 mg Q4H PRN IVP Severe Pain (Pain Scale 7-10) 01/09/19 00:00 01/13/19 15:59 Moxifloxacin HCl (Vigamox) 1 drop Q8HR LEFT EYE 01/08/19 22:30 01/14/19 21:59 01/09/19 05:54 Neomycin/ Polymyxin/ Dexamethasone (Maxitrol Opth Susp) 1 drop BEDTIME LEFT EYE 01/09/19 21:00 01/14/19 20:59 Nitroglycerin (Nitro-Bid) 1 inch TID@0600,1200,1800 TOPIC 01/09/19 06:00 02/06/19 17:59 01/09/19 05:55 Nitroglycerin (Ntg) 0.4 mg Q5MIN X 3 DOSES PRN SL Prn Chest Pain 01/08/19 22:30 02/05/19 12:29 Ondansetron HCl (Zofran) 4 mg Q4H PRN IVP Nausea & Vomiting 01/09/19 01:00 02/05/19 12:59 Pantoprazole (Protonix) 40 mg Q12HR ORAL 01/08/19 22:30 02/07/19 20:59 01/09/19 09:08 Prednisolone Acetate (Pred Forte) 1 drop QID BOTH EYES 01/08/19 22:30 02/06/19 17:59 01/09/19 09:13 Sevelamer Carbonate (Renvela) 1,600 mg THREE TIMES A DAY ORAL 01/08/19 22:30 02/07/19 08:59 01/09/19 09:08 Vitamin B Complex (Vitamin B Complex) 1 tab DAILY ORAL 01/09/19 09:00 02/07/19 08:59 01/09/19 09:09 Mirza Burt MD Jan 09, 2019 11:48
[2019-01-09 12:00] VITALS: BP 116/76
--- NOTE | 2019-01-09 14:53 | Nephrology Progress Note ---
Assessment/Plan Problem List: (1) ESRF (end stage renal failure) (2) Cardiac arrest (3) Diabetes mellitus Assessment ESRD s/p Cardiac Arrest Respiratory failure on Vent DM Plan Now extubated- Dialysed 01/06 for high K due HD today Post extubation care Albumin bolus as needed dialysis next 01/09 unless needed earlier per cardiology and pulmonary advise Subjective ROS Limited/Unobtainable: No Constitutional: Reports: malaise Objective Objective Last 24 Hour Vital Signs Date Time Temp Pulse Resp B/P (MAP) Pulse Ox O2 Delivery O2 Flow Rate FiO2 01/09/19 12:25 130/60 01/09/19 12:00 97.7 94 22 116/76 (89) 96 01/09/19 09:00 Venturi Mask 10.0 01/09/19 08:00 97.7 65 21 130/60 (83) 93 01/09/19 08:00 67 01/09/19 05:55 138/62 01/09/19 04:00 97.7 69 20 138/62 (87) 98 01/09/19 04:00 66 01/09/19 00:00 70 01/09/19 00:00 97.8 69 19 95/54 (68) 90 01/08/19 22:13 68 01/08/19 20:44 77 20 Nasal Cannula 3.0 32 01/08/19 20:44 Nasal Cannula 3.0 32 01/08/19 20:43 95 Nasal Cannula 3.0 32 01/08/19 20:00 Venturi Mask 10.0 01/08/19 17:31 158/72 01/08/19 16:00 Room Air 01/08/19 15:54 Room Air 01/08/19 15:45 98.1 74 18 158/72 (100) 100 Intake and Output 01/08/19 01/09/19 18:59 06:59 Intake Total 320 ml Output Total 0 ml Balance 320 ml Intake Oral 320 ml Output Urine Total 0 ml # Voids 1 Height (Feet): 5 Height (Inches): 1.00 Weight (Pounds): 157 General Appearance: no apparent distress Cardiovascular: normal rate Respiratory/Chest: decreased breath sounds Abdomen: soft Objective no change Wade Rivera MD Jan 09, 2019 14:53
[2019-01-09 16:00] VITALS: BP 135/59
--- NOTE | 2019-01-09 18:04 | Internal Med Progress Note ---
Subjective Date of Service: Jan 09, 2019 Physician Name Fabián Kwong Attending Physician Mirza Burt MD Current Medications Medications (Trade) Dose Ordered Sig/Steven Route PRN Reason Start Time Stop Time Status Last Admin Dose Admin Acetaminophen (Tylenol) 650 mg Q4H PRN ORAL Mild Pain (Pain Scale 1-3) 01/09/19 00:00 02/05/19 15:57 Acetaminophen (Tylenol) 650 mg Q4H PRN ORAL T>100.5 01/09/19 00:00 02/05/19 15:57 Acetaminophen/ Hydrocodone Bitart ([place] 5/325) 1 tab Q4H PRN ORAL Moderate Pain (Pain Scale 4-6) 01/09/19 00:00 01/13/19 15:58 Albuterol/ Ipratropium (Albuterol/ Ipratropium) 3 ml Q4H PRN HHN Shortness of Breath 01/09/19 00:00 01/11/19 15:58 Aspirin (Ecotrin) 81 mg DAILY ORAL 01/09/19 09:00 02/05/19 18:44 01/09/19 09:09 Atorvastatin Calcium (Lipitor) 80 mg BEDTIME ORAL 01/09/19 21:00 02/06/19 20:59 Bacitracin/ Polymyxin B Sulfate (Polysporin Op Oint) 1 applic BEDTIME RIGHT EYE 01/09/19 21:00 01/14/19 20:59 Dextrose (Dextrose 50%) 25 ml Q30M PRN IV Hypoglycemia 01/09/19 01:45 02/08/19 01:44 Dextrose (Dextrose 50%) 50 ml Q30M PRN IV Hypoglycemia 01/09/19 01:45 02/08/19 01:44 Heparin Sodium (Porcine) (Heparin 5000 units/ml) 5,000 units EVERY 12 HOURS SUBQ 01/09/19 21:00 02/08/19 20:59 Hydralazine HCl (Apresoline) 25 mg Q4H PRN ORAL SBP > 155mmHg 01/09/19 00:00 02/06/19 15:58 Insulin Aspart (NovoLOG) BEFORE MEALS AND HS SUBQ 01/09/19 06:30 02/08/19 06:29 01/09/19 17:50 Lorazepam (Ativan 2mg/ml 1ml) 2 mg Q2H PRN IV agitation 01/09/19 00:00 01/13/19 15:59 Morphine Sulfate (Morphine Sulfate) 4 mg Q4H PRN IVP Severe Pain (Pain Scale 7-10) 01/09/19 00:00 01/13/19 15:59 Moxifloxacin HCl (Vigamox) 1 drop Q8HR LEFT EYE 01/08/19 22:30 01/14/19 21:59 01/09/19 13:02 Neomycin/ Polymyxin/ Dexamethasone (Maxitrol Opth Susp) 1 drop BEDTIME LEFT EYE 01/09/19 21:00 01/14/19 20:59 Nitroglycerin (Nitro-Bid) 1 inch TID@0600,1200,1800 TOPIC 01/09/19 06:00 02/06/19 17:59 01/09/19 12:25 Nitroglycerin (Ntg) 0.4 mg Q5MIN X 3 DOSES PRN SL Prn Chest Pain 01/08/19 22:30 02/05/19 12:29 Ondansetron HCl (Zofran) 4 mg Q4H PRN IVP Nausea & Vomiting 01/09/19 01:00 02/05/19 12:59 Pantoprazole (Protonix) 40 mg Q12HR ORAL 01/08/19 22:30 02/07/19 20:59 01/09/19 09:08 Prednisolone Acetate (Pred Forte) 1 drop QID BOTH EYES 01/08/19 22:30 02/06/19 17:59 01/09/19 17:49 Sevelamer Carbonate (Renvela) 1,600 mg THREE TIMES A DAY ORAL 01/08/19 22:30 02/07/19 08:59 01/09/19 17:48 Vitamin B Complex (Vitamin B Complex) 1 tab DAILY ORAL 01/09/19 09:00 02/07/19 08:59 01/09/19 09:09 Allergies: Coded Allergies: PENICILLINS (Unverified Allergy, Severe, 01/03/19) RASH ROS Limited/Unobtainable: No Constitutional: Reports: no symptoms HEENT: Reports: no symptoms Cardiovascular: Reports: no symptoms Respiratory: Reports: no symptoms Gastrointestinal/Abdominal: Reports: no symptoms Genitourinary: Reports: no symptoms Neurologic/Psychiatric: Reports: no symptoms Subjective 58 YO F admitted with retinal detachment. S/P retinal reattachment. Now Respiratory failure. Cover for Int Med-Dr Young Objective Last Vital Signs Date Time Temp Pulse Resp B/P (MAP) Pulse Ox O2 Delivery O2 Flow Rate FiO2 01/09/19 17:50 135/59 01/09/19 16:00 64 01/09/19 16:00 98.1 21 90 01/09/19 09:00 Venturi Mask 10.0 01/08/19 20:44 32 Intake and Output 01/08/19 01/09/19 19:00 07:00 Intake Total 320 ml Output Total 0 ml Balance 320 ml Intake Oral 320 ml Output Urine Total 0 ml # Voids 1 Objective Objective General: A&O X 3, NAD, awake, alert, responsive. HEENT: NCAT, anicteric sclera, erythematous conjunctiva, PERRL, EOMI, eyes both covered. Neck: Supple, no significant jugular venous distention, Lungs: good respiratory affords, decreased air at the bases, no Wheeze or Rales. Heart: Regular rate and rhythm, normal S1/S2, no murmur, distant heart sounds Abdomen: soft, not tender, nondistended. Normoactive bowel sounds, obesity. Extremities: No Cyanosis , clubbing or edema, left upper extremity AV fistula with thrill.. Neuro: motor 5/5 all extremities, CN 2-12 intact. Skin: warm, no rash. Assessment/Plan Assessment/Plan Assessment/Plan Assessment/Plan Assessment/Plan 1. Acute hypoxemic respiratory failure. 2. Hypoxemic arrest. 3. End-stage renal disease on hemodialysis. 4. Left eye retinal detachment. 5. Mild obesity. 6. Atherosclerotic heart disease, coronary artery disease. 7. Hypertension. 8. Diabetic type II. 9. Elevated troponin possible ACS Plan: Follow-up with Dr. Burt recommendation for ventilation management. Follow-up with Dr. Rivera recommendation for dialysis. F/U with Dr. De La Cruz from cardiology. Monitor laboratory Follow-up with the glucose monitoring. Monitor blood pressure closely. DVT prophylaxis with SCD. CODE STATUS is full code at this time. PT Mobility, Penicillin allergy. Fabián Kwong MD Jan 09, 2019 18:04
--- NOTE | 2019-01-09 18:57 | Cardiology Progress Note ---
Assessment/Plan Assessment/Plan 1. Hypoxic arrest. 2. Bradycardia, probably secondary to hypoxemia. 3. Diabetes mellitus. 4. Hypertension. 5. End-stage renal disease, on hemodialysis. 6. Peripheral neuropathy history. 7. Abn ekg trop min increased and again seems decreased concerning for acs denies any cp ekg is abn with new t wve changes may benefit from invasive eval in light of abn ekg echo performed to be reviewed will use ntp for now if any cp will start on anticoagulation keep on statin and asa on tele will see if need hmo hostpial tranfer or to [facility] name place don [facility] transfer center d/w transfer center at [facility] many many pt ahead of her ihave asked assistant finance manager to help transfer to another cath facility besides [facility] Subjective Cardiovascular: Denies: chest pain, lightheadedness Respiratory: Denies: shortness of breath Gastrointestinal/Abdominal: Denies: abdominal pain Genitourinary: Denies: burning Objective Last 24 Hour Vital Signs Date Time Temp Pulse Resp B/P (MAP) Pulse Ox O2 Delivery O2 Flow Rate FiO2 01/09/19 17:50 135/59 01/09/19 16:00 64 01/09/19 16:00 98.1 75 21 135/59 (84) 90 01/09/19 12:25 130/60 01/09/19 12:00 77 01/09/19 12:00 97.7 94 22 116/76 (89) 96 01/09/19 09:00 Venturi Mask 10.0 01/09/19 08:00 97.7 65 21 130/60 (83) 93 01/09/19 08:00 67 01/09/19 05:55 138/62 01/09/19 04:00 97.7 69 20 138/62 (87) 98 01/09/19 04:00 66 01/09/19 00:00 70 01/09/19 00:00 97.8 69 19 95/54 (68) 90 01/08/19 22:13 68 01/08/19 20:44 77 20 Nasal Cannula 3.0 32 01/08/19 20:44 Nasal Cannula 3.0 32 01/08/19 20:43 95 Nasal Cannula 3.0 32 01/08/19 20:00 Venturi Mask 10.0 General Appearance: no apparent distress, alert Neck: no JVD Cardiovascular: normal rate Respiratory/Chest: lungs clear Abdomen: normal bowel sounds, non tender, soft Extremities: no swelling Intake and Output 01/08/19 01/09/19 19:00 07:00 Intake Total 320 ml Output Total 0 ml Balance 320 ml Intake Oral 320 ml Output Urine Total 0 ml # Voids 1 Elias Blackmon MD Jan 09, 2019 18:57
--- NOTE | 2019-01-09 19:20 | NUR ---
NURSE NOTES: Received pt. and report from MELISSA Hood. Observe pt. resting in bed with both eyes open and receiving HD. trial mgr is in placed, IV site intact, asymptomatic and patent. Bed is in the lowest position and locked, call light within reach. No acute distress noted at this time. Will continue plan of care.
--- NOTE | 2019-01-09 19:28 | NUR ---
HAND-OFF: Report given to Nimo Hansen RN.
[2019-01-09 20:00] VITALS: BP 138/62
[2019-01-09] MEDS: Heparin 5000 units/ml inj SUBQ SCH (21:00)
[2019-01-09] MEDS: Atorvastatin 80mg tab ORAL SCH (21:24)
[2019-01-09] MEDS: Polysporin Opth Oint 3.5gm RIGHT EYE SCH (21:27)
[2019-01-09] MEDS: Maxitrol Opth Susp 5ml LEFT EYE SCH (21:27)
[2019-01-10] VITALS (7 sets, daily range): BP systolic 115–165; BP diastolic 45–74
--- NOTE | 2019-01-10 03:15 | NUR ---
NURSE NOTES: Kiera from [facility] called to inform that there are still no available beds.
[2019-01-10] MEDS: Vigamox Opth Soln 3ml LEFT EYE SCH ×3 (06:13→22:13)
[2019-01-10] MEDS: Nitroglycerin 2% oint pkt TOPIC SCH ×3 (06:16→17:42)
[2019-01-10 06:36] LABS: HEMATOCRIT 30.5 % (37.0-47.0); MEAN CORPUSCULAR VOLUME 96 FL (80-99); PLATELET COUNT 98 K/UL (150-450); RED BLOOD COUNT 3.19 M/UL (4.20-5.40); RED CELL DISTRIBUTION WIDTH 12.2 % (11.6-14.8); WHITE BLOOD COUNT 4.8 K/UL (4.8-10.8)
[2019-01-10] MEDS: NovoLOG Insulin Flexpen SUBQ SCH ×4 (06:43→22:17)
[2019-01-10 06:59] LABS: ALANINE AMINOTRANSFERASE 15 U/L (12-78); ALBUMIN 3.3 G/DL (3.4-5.0); ALBUMIN/GLOBULIN RATIO 0.8 (1.0-2.7); ALKALINE PHOSPHATASE 153 U/L (46-116); ANION GAP 11 mmol/L (5-15); ASPARTATE AMINO TRANSFERASE 22 U/L (15-37); BILIRUBIN,TOTAL 0.8 MG/DL (0.2-1.0); BLOOD UREA NITROGEN 44 mg/dL (7-18); CALCIUM 9.4 MG/DL (8.5-10.1); CARBON DIOXIDE 31 MMOL/L (21-32); CHLORIDE 97 MMOL/L (98-107); CREATININE 6.3 MG/DL (0.55-1.30); PHOSPHORUS 4.8 MG/DL (2.5-4.9); POTASSIUM 4.1 MMOL/L (3.5-5.1); SODIUM 139 MMOL/L (136-145)
--- NOTE | 2019-01-10 07:45 | NUR ---
HAND-OFF: Report given to MELISSA Gupta.
--- NOTE | 2019-01-10 07:50 | NUR ---
NURSE NOTES: Contacted Dr. Blackmon regarding pt.'s troponin level. Received orders. Will note and carry out.
--- NOTE | 2019-01-10 08:00 | NUR ---
NURSE NOTES: Report received from Carolyn RN. Patient is observed in bed, awake, alert, oriented and able to make needs known. Denies pain at this time. IV site is asymptomatic, patent, and intact. Bed is in lowest position with side rails up x2 and brakes are engaged. Bed alarm is on. Will continue to monitor.
[2019-01-10] MEDS: Vitamin B Complex Tab ORAL SCH (08:35)
[2019-01-10] MEDS: Pred Forte 1% Opth Susp 1ml BOTH EYES SCH ×4 (08:35→22:06)
[2019-01-10] MEDS: Heparin 5000 units/ml inj SUBQ SCH ×2 (08:37→21:00)
[2019-01-10] MEDS: Aspirin Baby 81mg ORAL SCH (08:49)
[2019-01-10] MEDS ORDERED: Aspirin Baby 81mg ORAL SCH (09:00)
--- NOTE | 2019-01-10 11:54 | Pulmonology Progress Note ---
Assessment/Plan Problems: (1) Cardiac arrest (2) Non-ST elevation (NSTEMI) myocardial infarction (3) Diabetes mellitus (4) ESRF (end stage renal failure) Assessment/Plan all reviewed Echo reviewed, EF hyperdynamic PA pressure 40 ABN EGK cardiology recommending Cardiac cath sliding scale diabetic diet keep in teli awaiting to transfer to [facility] Subjective ROS Limited/Unobtainable: No Interval Events: no chest pain Constitutional: Reports: no symptoms HEENT: Repors: no symptoms Respiratory: Reports: no symptoms Allergies: Coded Allergies: PENICILLINS (Unverified Allergy, Severe, 01/03/19) RASH Objective Last 24 Hour Vital Signs Date Time Temp Pulse Resp B/P (MAP) Pulse Ox O2 Delivery O2 Flow Rate FiO2 01/10/19 08:33 95 Nasal Cannula 3.0 32 01/10/19 08:33 Nasal Cannula 3.0 32 01/10/19 08:33 75 18 Nasal Cannula 3.0 32 01/10/19 08:01 Nasal Cannula 2.0 01/10/19 08:00 98.1 66 18 138/62 (87) 95 01/10/19 08:00 71 01/10/19 06:16 153/69 01/10/19 04:00 98.2 69 18 142/61 (88) 95 01/10/19 04:00 67 01/10/19 00:00 98.0 70 18 115/45 (68) 94 01/10/19 00:00 67 01/09/19 22:15 96 Nasal Cannula 3.0 32 01/09/19 22:15 67 18 Nasal Cannula 3.0 32 01/09/19 22:15 Nasal Cannula 3.0 32 01/09/19 21:00 Nasal Cannula 2.0 01/09/19 20:00 71 01/09/19 20:00 98.1 66 19 138/62 (87) 98 01/09/19 17:50 135/59 01/09/19 16:00 64 01/09/19 16:00 98.1 75 21 135/59 (84) 90 01/09/19 12:25 130/60 01/09/19 12:00 77 01/09/19 12:00 97.7 94 22 116/76 (89) 96 Intake and Output 01/09/19 01/10/19 19:00 07:00 Intake Total 240 ml Balance 240 ml Intake Oral 240 ml # Bowel Movements 2 Objective General Appearance: WNL HEENT: normocephalic, atraumatic Respiratory/Chest: chest wall non-tender, lungs clear Cardiovascular: normal peripheral pulses, regular rhythm Abdomen: normal bowel sounds, soft, non tender Genitourinary: normal external genitalia Extremities: no clubbing Laboratory Tests 01/10/19 05:15: White Blood Count 4.8, Red Blood Count 3.19L, Hemoglobin 10.0L, Hematocrit 30.5L , Mean Corpuscular Volume 96, Mean Corpuscular Hemoglobin 31.4H, Mean Corpuscular Hemoglobin Concent 32.9, Red Cell Distribution Width 12.2, Platelet Count 98L, Mean Platelet Volume 9.5, Neutrophils (%) (Auto) , Lymphocytes (%) ( Auto) , Monocytes (%) (Auto) , Eosinophils (%) (Auto) , Basophils (%) (Auto) , Differential Total Cells Counted 100, Neutrophils % (Manual) 65, Lymphocytes % ( Manual) 10L, Monocytes % (Manual) 11H, Eosinophils % (Manual) 11H, Basophils % ( Manual) 3H, Band Neutrophils 0, Platelet Estimate DecreasedL, Platelet Morphology Normal, Hypochromasia 1+, Sodium Level 139, Potassium Level 4.1, Chloride Level 97L, Carbon Dioxide Level 31, Anion Gap 11, Blood Urea Nitrogen 44H, Creatinine 6.3H, Estimat Glomerular Filtration Rate 6.8, Glucose Level 155H , Uric Acid 4.3, Calcium Level 9.4, Phosphorus Level 4.8, Magnesium Level 2.0, Total Bilirubin 0.8, Aspartate Amino Transf (AST/SGOT) 22, Alanine Aminotransferase (ALT/SGPT) 15, Alkaline Phosphatase 153H, Troponin I 0.982H, C- Reactive Protein, Quantitative 4.7H, Pro-B-Type Natriuretic Peptide > 61441Q, Total Protein 7.2, Albumin 3.3L, Globulin 3.9, Albumin/Globulin Ratio 0.8L Current Medications Medications (Trade) Dose Ordered Sig/Steven Route PRN Reason Start Time Stop Time Status Last Admin Dose Admin Acetaminophen (Tylenol) 650 mg Q4H PRN ORAL Mild Pain (Pain Scale 1-3) 01/09/19 00:00 02/05/19 15:57 Acetaminophen (Tylenol) 650 mg Q4H PRN ORAL T>100.5 01/09/19 00:00 02/05/19 15:57 Acetaminophen/ Hydrocodone Bitart ([place] 5/325) 1 tab Q4H PRN ORAL Moderate Pain (Pain Scale 4-6) 01/09/19 00:00 01/13/19 15:58 Albuterol/ Ipratropium (Albuterol/ Ipratropium) 3 ml Q4H PRN HHN Shortness of Breath 01/09/19 00:00 01/11/19 15:58 Aspirin (ASA) 81 mg DAILY ORAL 01/10/19 09:00 02/09/19 08:59 01/10/19 08:49 Atorvastatin Calcium (Lipitor) 80 mg BEDTIME ORAL 01/09/19 21:00 02/06/19 20:59 01/09/19 21:24 Bacitracin/ Polymyxin B Sulfate (Polysporin Op Oint) 1 applic BEDTIME RIGHT EYE 01/09/19 21:00 01/14/19 20:59 01/09/19 21:27 Dextrose (Dextrose 50%) 25 ml Q30M PRN IV Hypoglycemia 01/09/19 01:45 02/08/19 01:44 Dextrose (Dextrose 50%) 50 ml Q30M PRN IV Hypoglycemia 01/09/19 01:45 02/08/19 01:44 Heparin Sodium (Porcine) (Heparin 5000 units/ml) 5,000 units EVERY 12 HOURS SUBQ 01/09/19 21:00 02/08/19 20:59 Hydralazine HCl (Apresoline) 25 mg Q4H PRN ORAL SBP > 155mmHg 01/09/19 00:00 02/06/19 15:58 Insulin Aspart (NovoLOG) BEFORE MEALS AND HS SUBQ 01/09/19 06:30 02/08/19 06:29 01/10/19 06:43 Lorazepam (Ativan 2mg/ml 1ml) 2 mg Q2H PRN IV agitation 01/09/19 00:00 01/13/19 15:59 Morphine Sulfate (Morphine Sulfate) 4 mg Q4H PRN IVP Severe Pain (Pain Scale 7-10) 01/09/19 00:00 01/13/19 15:59 Moxifloxacin HCl (Vigamox) 1 drop Q8HR LEFT EYE 01/08/19 22:30 01/14/19 21:59 01/10/19 06:13 Neomycin/ Polymyxin/ Dexamethasone (Maxitrol Opth Susp) 1 drop BEDTIME LEFT EYE 01/09/19 21:00 01/14/19 20:59 01/09/19 21:27 Nitroglycerin (Nitro-Bid) 1 inch TID@0600,1200,1800 TOPIC 01/09/19 06:00 02/06/19 17:59 01/10/19 06:16 Nitroglycerin (Ntg) 0.4 mg Q5MIN X 3 DOSES PRN SL Prn Chest Pain 01/08/19 22:30 02/05/19 12:29 Ondansetron HCl (Zofran) 4 mg Q4H PRN IVP Nausea & Vomiting 01/09/19 01:00 02/05/19 12:59 Pantoprazole (Protonix) 40 mg Q12HR ORAL 01/08/19 22:30 02/07/19 20:59 01/10/19 08:35 Prednisolone Acetate (Pred Forte) 1 drop QID BOTH EYES 01/08/19 22:30 02/06/19 17:59 01/10/19 08:35 Sevelamer Carbonate (Renvela) 1,600 mg THREE TIMES A DAY ORAL 01/08/19 22:30 02/07/19 08:59 01/10/19 08:34 Vitamin B Complex (Vitamin B Complex) 1 tab DAILY ORAL 01/09/19 09:00 02/07/19 08:59 01/10/19 08:35 Mirza Burt MD Jan 10, 2019 11:54
--- NOTE | 2019-01-10 12:19 | NUR ---
RD ASSESSMENT & RECOMMENDATIONS SEE CARE ACTIVITY FOR COMPLETE ASSESSMENT DAILY ESTIMATED NEEDS: Needs based on ESRD on HD 53.6kg adj 30-35 kcals/kg 8942-0972 total kcals 1.2-1.8 g protein/kg 64-1876 g total protein Fluid per MD, on HD NUTRITION DIAGNOSIS: Increased kcal and protein needs r/t renal dysfunction as evidenced by pt w/ ESRD on HD CURRENT DIET: CCHO MED, Renal chopped PO DIET RECOMMENDATIONS: RENAL/ CCHO LOW DIET ADDITIONAL RECOMMENDATIONS: 1) TXR pt to bed w/ scale OR obtain standing daily wts as able 2) Add HIGH pro snacks BID in b/w meals 3) Rec WOOD CARVER eval post extubation for appropriate texture 4) Nephrovite x1 daily
--- NOTE | 2019-01-10 13:05 | NUR ---
NURSE NOTES: Leslie contacted the unit regarding patient's medical record. Per Leslie, she is a social services coordinator and in need of patient's medical record. Will relay the message to the patient's social services coordinator and clinical case manager.
--- NOTE | 2019-01-10 14:00 | NUR ---
NURSE NOTES: Leslie psychotherapist social worker left a call back number at: [phone] / fax number: [phone].
--- NOTE | 2019-01-10 14:16 | Cardiology Report ---
APPROVED REPORT EKG Measurement Heart [id number] Normal sinus rhythm Marked ST abnormality, possible inferior subendocardial injury Abnormal ECG
--- NOTE | 2019-01-10 14:18 | Nephrology Progress Note ---
Assessment/Plan Problem List: (1) ESRF (end stage renal failure) (2) Cardiac arrest (3) Diabetes mellitus (4) Non-ST elevation (NSTEMI) myocardial infarction Assessment ESRD s/p Cardiac Arrest Respiratory failure on Vent DM Plan Now extubated- Dialysed 01/06 for high K due HD today Post extubation care Albumin bolus as needed dialysis next 01/11 per cardiology and pulmonary advise Subjective ROS Limited/Unobtainable: No Constitutional: Reports: malaise Objective Objective Last 24 Hour Vital Signs Date Time Temp Pulse Resp B/P (MAP) Pulse Ox O2 Delivery O2 Flow Rate FiO2 01/10/19 12:45 97.1 75 21 121/57 (78) 90 01/10/19 12:32 121/57 01/10/19 08:33 95 Nasal Cannula 3.0 32 01/10/19 08:33 Nasal Cannula 3.0 32 01/10/19 08:33 75 18 Nasal Cannula 3.0 32 01/10/19 08:01 Nasal Cannula 2.0 01/10/19 08:00 98.1 66 18 138/62 (87) 95 01/10/19 08:00 71 01/10/19 06:16 153/69 01/10/19 04:00 98.2 69 18 142/61 (88) 95 01/10/19 04:00 67 01/10/19 00:00 98.0 70 18 115/45 (68) 94 01/10/19 00:00 67 01/09/19 22:15 96 Nasal Cannula 3.0 32 01/09/19 22:15 67 18 Nasal Cannula 3.0 32 01/09/19 22:15 Nasal Cannula 3.0 32 01/09/19 21:00 Nasal Cannula 2.0 01/09/19 20:00 71 01/09/19 20:00 98.1 66 19 138/62 (87) 98 01/09/19 17:50 135/59 01/09/19 16:00 64 01/09/19 16:00 98.1 75 21 135/59 (84) 90 Intake and Output 01/09/19 01/10/19 19:00 07:00 Intake Total 240 ml Balance 240 ml Intake Oral 240 ml # Bowel Movements 2 Laboratory Tests 01/10/19 05:15: White Blood Count 4.8, Red Blood Count 3.19L, Hemoglobin 10.0L, Hematocrit 30.5L , Mean Corpuscular Volume 96, Mean Corpuscular Hemoglobin 31.4H, Mean Corpuscular Hemoglobin Concent 32.9, Red Cell Distribution Width 12.2, Platelet Count 98L, Mean Platelet Volume 9.5, Neutrophils (%) (Auto) , Lymphocytes (%) ( Auto) , Monocytes (%) (Auto) , Eosinophils (%) (Auto) , Basophils (%) (Auto) , Differential Total Cells Counted 100, Neutrophils % (Manual) 65, Lymphocytes % ( Manual) 10L, Monocytes % (Manual) 11H, Eosinophils % (Manual) 11H, Basophils % ( Manual) 3H, Band Neutrophils 0, Platelet Estimate DecreasedL, Platelet Morphology Normal, Hypochromasia 1+, Sodium Level 139, Potassium Level 4.1, Chloride Level 97L, Carbon Dioxide Level 31, Anion Gap 11, Blood Urea Nitrogen 44H, Creatinine 6.3H, Estimat Glomerular Filtration Rate 6.8, Glucose Level 155H , Uric Acid 4.3, Calcium Level 9.4, Phosphorus Level 4.8, Magnesium Level 2.0, Total Bilirubin 0.8, Aspartate Amino Transf (AST/SGOT) 22, Alanine Aminotransferase (ALT/SGPT) 15, Alkaline Phosphatase 153H, Troponin I 0.982H, C- Reactive Protein, Quantitative 4.7H, Pro-B-Type Natriuretic Peptide > 40882B, Total Protein 7.2, Albumin 3.3L, Globulin 3.9, Albumin/Globulin Ratio 0.8L Height (Feet): 5 Height (Inches): 1.00 Weight (Pounds): 153 General Appearance: no apparent distress Objective no change Wade Rivera MD Jan 10, 2019 14:18
--- NOTE | 2019-01-10 14:23 | Internal Med Progress Note ---
Subjective Physician Name HectorGlenn Attending Physician Mirza Burt MD Current Medications Medications (Trade) Dose Ordered Sig/Steven Route PRN Reason Start Time Stop Time Status Last Admin Dose Admin Acetaminophen (Tylenol) 650 mg Q4H PRN ORAL Mild Pain (Pain Scale 1-3) 01/09/19 00:00 02/05/19 15:57 Acetaminophen (Tylenol) 650 mg Q4H PRN ORAL T>100.5 01/09/19 00:00 02/05/19 15:57 Acetaminophen/ Hydrocodone Bitart ([place] 5/325) 1 tab Q4H PRN ORAL Moderate Pain (Pain Scale 4-6) 01/09/19 00:00 01/13/19 15:58 Albuterol/ Ipratropium (Albuterol/ Ipratropium) 3 ml Q4H PRN HHN Shortness of Breath 01/09/19 00:00 01/11/19 15:58 Aspirin (ASA) 81 mg DAILY ORAL 01/10/19 09:00 02/09/19 08:59 01/10/19 08:49 Atorvastatin Calcium (Lipitor) 80 mg BEDTIME ORAL 01/09/19 21:00 02/06/19 20:59 01/09/19 21:24 Bacitracin/ Polymyxin B Sulfate (Polysporin Op Oint) 1 applic BEDTIME RIGHT EYE 01/09/19 21:00 01/14/19 20:59 01/09/19 21:27 Dextrose (Dextrose 50%) 25 ml Q30M PRN IV Hypoglycemia 01/09/19 01:45 02/08/19 01:44 Dextrose (Dextrose 50%) 50 ml Q30M PRN IV Hypoglycemia 01/09/19 01:45 02/08/19 01:44 Heparin Sodium (Porcine) (Heparin 5000 units/ml) 5,000 units EVERY 12 HOURS SUBQ 01/09/19 21:00 02/08/19 20:59 Hydralazine HCl (Apresoline) 25 mg Q4H PRN ORAL SBP > 155mmHg 01/09/19 00:00 02/06/19 15:58 Insulin Aspart (NovoLOG) BEFORE MEALS AND HS SUBQ 01/09/19 06:30 02/08/19 06:29 01/10/19 12:35 Lorazepam (Ativan 2mg/ml 1ml) 2 mg Q2H PRN IV agitation 01/09/19 00:00 01/13/19 15:59 Morphine Sulfate (Morphine Sulfate) 4 mg Q4H PRN IVP Severe Pain (Pain Scale 7-10) 01/09/19 00:00 01/13/19 15:59 Moxifloxacin HCl (Vigamox) 1 drop Q8HR LEFT EYE 01/08/19 22:30 01/14/19 21:59 01/10/19 13:54 Neomycin/ Polymyxin/ Dexamethasone (Maxitrol Opth Susp) 1 drop BEDTIME LEFT EYE 01/09/19 21:00 01/14/19 20:59 01/09/19 21:27 Nitroglycerin (Nitro-Bid) 1 inch TID@0600,1200,1800 TOPIC 01/09/19 06:00 02/06/19 17:59 01/10/19 12:32 Nitroglycerin (Ntg) 0.4 mg Q5MIN X 3 DOSES PRN SL Prn Chest Pain 01/08/19 22:30 02/05/19 12:29 Ondansetron HCl (Zofran) 4 mg Q4H PRN IVP Nausea & Vomiting 01/09/19 01:00 02/05/19 12:59 Pantoprazole (Protonix) 40 mg Q12HR ORAL 01/08/19 22:30 02/07/19 20:59 01/10/19 08:35 Prednisolone Acetate (Pred Forte) 1 drop QID BOTH EYES 01/08/19 22:30 02/06/19 17:59 01/10/19 12:33 Sevelamer Carbonate (Renvela) 1,600 mg THREE TIMES A DAY ORAL 01/08/19 22:30 02/07/19 08:59 01/10/19 12:32 Vitamin B Complex (Vitamin B Complex) 1 tab DAILY ORAL 01/09/19 09:00 02/07/19 08:59 01/10/19 08:35 Allergies: Coded Allergies: PENICILLINS (Unverified Allergy, Severe, 01/03/19) RASH Subjective in monitor Unit, family member at bedside, awake, alert, responsive, NAD, No CP or SOB. Objective Last Vital Signs Date Time Temp Pulse Resp B/P (MAP) Pulse Ox O2 Delivery O2 Flow Rate FiO2 01/10/19 12:45 97.1 75 21 121/57 (78) 90 01/10/19 08:33 Nasal Cannula 3.0 32 Laboratory Tests Test 01/10/19 05:15 White Blood Count 4.8 K/UL (4.8-10.8) Red Blood Count 3.19 M/UL (4.20-5.40) L Hemoglobin 10.0 G/DL (12.0-16.0) L Hematocrit 30.5 % (37.0-47.0) L Mean Corpuscular Volume 96 FL (80-99) Mean Corpuscular Hemoglobin 31.4 PG (27.0-31.0) H Mean Corpuscular Hemoglobin Concent 32.9 G/DL (32.0-36.0) Red Cell Distribution Width 12.2 % (11.6-14.8) Platelet Count 98 K/UL (150-450) L Mean Platelet Volume 9.5 FL (6.5-10.1) Neutrophils (%) (Auto) % (45.0-75.0) Lymphocytes (%) (Auto) % (20.0-45.0) Monocytes (%) (Auto) % (1.0-10.0) Eosinophils (%) (Auto) % (0.0-3.0) Basophils (%) (Auto) % (0.0-2.0) Differential Total Cells Counted 100 Neutrophils % (Manual) 65 % (45-75) Lymphocytes % (Manual) 10 % (20-45) L Monocytes % (Manual) 11 % (1-10) H Eosinophils % (Manual) 11 % (0-3) H Basophils % (Manual) 3 % (0-2) H Band Neutrophils 0 % (0-8) Platelet Estimate Decreased L Platelet Morphology Normal Hypochromasia 1+ Sodium Level 139 MMOL/L (136-145) Potassium Level 4.1 MMOL/L (3.5-5.1) Chloride Level 97 MMOL/L (98-107) L Carbon Dioxide Level 31 MMOL/L (21-32) Anion Gap 11 mmol/L (5-15) Blood Urea Nitrogen 44 mg/dL (7-18) H Creatinine 6.3 MG/DL (0.55-1.30) H Estimat Glomerular Filtration Rate 6.8 mL/min (>60) Glucose Level 155 MG/DL (74-106) H Uric Acid 4.3 MG/DL (2.6-7.2) Calcium Level 9.4 MG/DL (8.5-10.1) Phosphorus Level 4.8 MG/DL (2.5-4.9) Magnesium Level 2.0 MG/DL (1.8-2.4) Total Bilirubin 0.8 MG/DL (0.2-1.0) Aspartate Amino Transf (AST/SGOT) 22 U/L (15-37) Alanine Aminotransferase (ALT/SGPT) 15 U/L (12-78) Alkaline Phosphatase 153 U/L (46-116) H Troponin I 0.982 ng/mL (0.000-0.056) C-Reactive Protein, Quantitative 4.7 mg/dL (0.00-0.90) H Pro-B-Type Natriuretic Peptide > 91693 pg/mL (0-125) H Total Protein 7.2 G/DL (6.4-8.2) Albumin 3.3 G/DL (3.4-5.0) L Globulin 3.9 g/dL Albumin/Globulin Ratio 0.8 (1.0-2.7) L Intake and Output 01/09/19 01/10/19 18:59 06:59 Intake Total 240 ml Balance 240 ml Intake Oral 240 ml # Bowel Movements 2 Objective General: A&O X 3, NAD, awake, alert, responsive. HEENT: NCAT, anicteric sclera, less erythematous conjunctiva, Left eye: PERRL, EOMI, Right eye: Blindness, Neck: Supple, no significant jugular venous distention, Lungs: good respiratory affords, decreased air at the bases, no Wheeze or Rales. Heart: Regular rate and rhythm, normal S1/S2, no murmur, distant heart sounds Abdomen: soft, not tender, nondistended. Normoactive bowel sounds, obesity. Extremities: No Cyanosis , clubbing or edema, left upper extremity AV fistula with thrill.. Neuro: motor 5/5 all extremities, CN 2-12 intact. Skin: warm, no rash. Assessment/Plan Assessment/Plan 1. Acute hypoxemic respiratory failure. 2. Hypoxemic arrest. 3. End-stage renal disease on hemodialysis. 4. Left eye retinal detachment. 5. Mild obesity. 6. Atherosclerotic heart disease, coronary artery disease. 7. Hypertension. 8. Diabetic type II. 9. Elevated troponin possible NSTEMI Plan: Follow-up with Dr. Burt recommendation for ventilation management. Follow-up with Dr. Rivera recommendation for dialysis. F/U with Dr. De La Cruz from cardiology. Monitor laboratory Follow-up with the glucose monitoring. Monitor blood pressure closely. DVT prophylaxis with SCD. CODE STATUS is full code at this time. PT Mobility, Penicillin allergy. Consider transfer to [facility] for cardiac catheterization. Glenn Young MD Jan 10, 2019 14:23
--- NOTE | 2019-01-10 18:21 | NUR ---
NURSE NOTES: Contacted [facility] dialysis and spoke to SAKSHI regarding tomorrow's scheduled HD per Miguel. SAKSHI stated that he will relay the message to Kwabena, the HD nurse. Awaiting call back.
--- NOTE | 2019-01-10 18:27 | NUR ---
CASE MANAGEMENT:REVIEW 01/10/19 SI: CARDIAC ARREST. NSTEMI. ESRD T 98.2 HR 69 RR 18 B/P 165/61 SATS 95% ON 2L/NC CL 97 BUN 44 CR 6.3 GLU 155 ALP 153 TROPONIN 0.982 BNP >35K IS: LIPITOR PO QHS ASA PO QD INSULIN ASPART SUBQ AC/HS PROTONIX PO Q12H NITRO BID TOP BID TELE STATUS
--- NOTE | 2019-01-10 18:37 | Cardiology Progress Note ---
Assessment/Plan Assessment/Plan 1. Hypoxic arrest. 2. Bradycardia, probably secondary to hypoxemia. 3. Diabetes mellitus. 4. Hypertension. 5. End-stage renal disease, on hemodialysis. 6. Peripheral neuropathy history. 7. Abn ekg trop min increased and again seems decreased concerning for acs denies any cp ekg is abn with new t wve changes may benefit from invasive eval in light of abn ekg echo performed to be reviewed will use ntp for now if any cp will start on anticoagulation keep on statin and asa on tele will see if need hmo hostpial tranfer or to [facility] name place don [facility] transfer center d/w transfer center at [facility] many many pt ahead of her ihave asked golf manager to help transfer to another cath facility besides [facility] Subjective Cardiovascular: Denies: chest pain, lightheadedness, palpitations Respiratory: Denies: shortness of breath, SOB with excertion Gastrointestinal/Abdominal: Denies: abdominal pain Genitourinary: Denies: burning Objective Last 24 Hour Vital Signs Date Time Temp Pulse Resp B/P (MAP) Pulse Ox O2 Delivery O2 Flow Rate FiO2 01/10/19 17:42 150/74 01/10/19 16:26 98.2 69 18 165/61 (95) 95 01/10/19 16:00 98.1 75 21 150/74 (99) 98 01/10/19 15:53 72 01/10/19 12:45 97.1 75 21 121/57 (78) 90 01/10/19 12:32 121/57 01/10/19 12:10 74 01/10/19 08:33 95 Nasal Cannula 3.0 32 01/10/19 08:33 Nasal Cannula 3.0 32 01/10/19 08:33 75 18 Nasal Cannula 3.0 32 01/10/19 08:01 Nasal Cannula 2.0 01/10/19 08:00 98.1 66 18 138/62 (87) 95 01/10/19 08:00 71 01/10/19 06:16 153/69 01/10/19 04:00 98.2 69 18 142/61 (88) 95 01/10/19 04:00 67 01/10/19 00:00 98.0 70 18 115/45 (68) 94 01/10/19 00:00 67 01/09/19 22:15 96 Nasal Cannula 3.0 32 3/21/19 22:15 67 18 Nasal Cannula 3.0 32 01/09/19 22:15 Nasal Cannula 3.0 32 01/09/19 21:00 Nasal Cannula 2.0 01/09/19 20:00 71 01/09/19 20:00 98.1 66 19 138/62 (87) 98 General Appearance: alert Neck: supple Respiratory/Chest: lungs clear Abdomen: non tender, soft Extremities: non-tender, no swelling Intake and Output 01/09/19 01/10/19 18:59 06:59 Intake Total 240 ml Balance 240 ml Intake Oral 240 ml # Bowel Movements 2 Laboratory Tests Test 01/10/19 05:15 White Blood Count 4.8 K/UL (4.8-10.8) Red Blood Count 3.19 M/UL (4.20-5.40) L Hemoglobin 10.0 G/DL (12.0-16.0) L Hematocrit 30.5 % (37.0-47.0) L Mean Corpuscular Volume 96 FL (80-99) Mean Corpuscular Hemoglobin 31.4 PG (27.0-31.0) H Mean Corpuscular Hemoglobin Concent 32.9 G/DL (32.0-36.0) Red Cell Distribution Width 12.2 % (11.6-14.8) Platelet Count 98 K/UL (150-450) L Mean Platelet Volume 9.5 FL (6.5-10.1) Neutrophils (%) (Auto) % (45.0-75.0) Lymphocytes (%) (Auto) % (20.0-45.0) Monocytes (%) (Auto) % (1.0-10.0) Eosinophils (%) (Auto) % (0.0-3.0) Basophils (%) (Auto) % (0.0-2.0) Differential Total Cells Counted 100 Neutrophils % (Manual) 65 % (45-75) Lymphocytes % (Manual) 10 % (20-45) L Monocytes % (Manual) 11 % (1-10) H Eosinophils % (Manual) 11 % (0-3) H Basophils % (Manual) 3 % (0-2) H Band Neutrophils 0 % (0-8) Platelet Estimate Decreased L Platelet Morphology Normal Hypochromasia 1+ Sodium Level 139 MMOL/L (136-145) Potassium Level 4.1 MMOL/L (3.5-5.1) Chloride Level 97 MMOL/L (98-107) L Carbon Dioxide Level 31 MMOL/L (21-32) Anion Gap 11 mmol/L (5-15) Blood Urea Nitrogen 44 mg/dL (7-18) H Creatinine 6.3 MG/DL (0.55-1.30) H Estimat Glomerular Filtration Rate 6.8 mL/min (>60) Glucose Level 155 MG/DL (74-106) H Uric Acid 4.3 MG/DL (2.6-7.2) Calcium Level 9.4 MG/DL (8.5-10.1) Phosphorus Level 4.8 MG/DL (2.5-4.9) Magnesium Level 2.0 MG/DL (1.8-2.4) Total Bilirubin 0.8 MG/DL (0.2-1.0) Aspartate Amino Transf (AST/SGOT) 22 U/L (15-37) Alanine Aminotransferase (ALT/SGPT) 15 U/L (12-78) Alkaline Phosphatase 153 U/L (46-116) H Troponin I 0.982 ng/mL (0.000-0.056) C-Reactive Protein, Quantitative 4.7 mg/dL (0.00-0.90) H Pro-B-Type Natriuretic Peptide > 53841 pg/mL (0-125) H Total Protein 7.2 G/DL (6.4-8.2) Albumin 3.3 G/DL (3.4-5.0) L Globulin 3.9 g/dL Albumin/Globulin Ratio 0.8 (1.0-2.7) L Elias Blackmon MD Jan 10, 2019 18:37
--- NOTE | 2019-01-10 19:44 | NUR ---
HAND-OFF: Report given to Bianka TORRES. Pateint is in stable condition. Endorsed plan of care.
--- NOTE | 2019-01-10 20:00 | NUR ---
NURSE NOTES: received pt in stable condition. safety precautions in place will continue to monitor
[2019-01-10] MEDS: Atorvastatin 80mg tab ORAL SCH (22:02)
[2019-01-10] MEDS: Polysporin Opth Oint 3.5gm RIGHT EYE SCH (22:06)
[2019-01-10] MEDS: Maxitrol Opth Susp 5ml LEFT EYE SCH (22:06)
[2019-01-11] VITALS: BP 160/67
--- NOTE | 2019-01-11 | NUR ---
NURSE NOTES: pt sleeping with no s/s of acute distress will continue to monitor
--- NOTE | 2019-01-11 03:30 | Progress Note ---
DATE: 01/10/2019 The initial followup note or progress note on the evening of 01/07/2019. SUBJECTIVE: Vision remains the same in the left eye with no pain. OBJECTIVE: Vision right eye bare light perception and the left eye, hand motions with a tactile tension normal. The external examination of the left eye showed mild lid ecchymosis. There was full range of motion. The anterior segment was quiet. Funduscopic examination was unchanged with central retinal elevation. ASSESSMENT: Status post posterior retinal detachment, left eye after complicated vitrectomy left eye. DISCUSSION: The patient's operation was aborted because of hypoxia and bradycardia. She appears to have recovered from this episode and recognizes my voice and appears to have normal neurological function to a cursory exam. She was advised that the operation was not performed and at some point, when she is cleared by Pulmonary and Cardiology, the retinal detachment would have to be revisited with a procedure that included injection of silicone oil. Continuing care will be given by Pulmonary and casino operations supervisor and the patient will be seen in the office as soon as she is medically cleared. Clayton Sneed M.D. DR: CECILE JOB#: [id number] CC: Clayton Sneed M.D.; Fax#: [phone]
[2019-01-11 04:00] VITALS: BP 156/64
[2019-01-11] MEDS: NovoLOG Insulin Flexpen SUBQ SCH ×4 (05:32→21:15)
[2019-01-11] MEDS: Vigamox Opth Soln 3ml LEFT EYE SCH ×3 (05:38→21:13)
[2019-01-11] MEDS: Nitroglycerin 2% oint pkt TOPIC SCH ×3 (05:42→17:27)
--- NOTE | 2019-01-11 06:48 | NUR ---
NURSE NOTES: pt in stable condition resting in bed. will endorse to incoming nurse
--- NOTE | 2019-01-11 07:10 | NUR ---
NURSE NOTES: I received the patient awake and resting in bed. Patient's dialysis treatment in process. Patient did not display any signs of distress or SOB. Bed in the lowest position and call light within reach. I will continue to implement care and monitor the patient.
--- NOTE | 2019-01-11 07:31 | NUR ---
HAND-OFF: Report given to Darlyn RN.
[2019-01-11 08:00] VITALS: BP 138/67
--- NOTE | 2019-01-11 08:55 | NUR ---
PT Note Patient was transferred to telemetry unit. Will need a new order for PT to initiate eval/tx.
[2019-01-11] MEDS: Heparin 5000 units/ml inj SUBQ SCH ×2 (09:00→20:40)
[2019-01-11] MEDS: Aspirin Baby 81mg ORAL SCH (09:09)
[2019-01-11] MEDS: Vitamin B Complex Tab ORAL SCH (09:10)
[2019-01-11] MEDS: Pred Forte 1% Opth Susp 1ml BOTH EYES SCH ×4 (09:11→21:12)
--- NOTE | 2019-01-11 10:52 | Pulmonology Progress Note ---
Assessment/Plan Problems: (1) Cardiac arrest (2) Non-ST elevation (NSTEMI) myocardial infarction (3) Diabetes mellitus (4) ESRF (end stage renal failure) Assessment/Plan no new complains all reviewed Echo reviewed, EF hyperdynamic PA pressure 40 ABN EGK cardiology recommending Cardiac cath sliding scale diabetic diet keep in teli awaiting to transfer to [facility] Subjective ROS Limited/Unobtainable: No Constitutional: Reports: no symptoms HEENT: Repors: no symptoms Allergies: Coded Allergies: PENICILLINS (Unverified Allergy, Severe, 01/03/19) RASH Objective Last 24 Hour Vital Signs Date Time Temp Pulse Resp B/P (MAP) Pulse Ox O2 Delivery O2 Flow Rate FiO2 01/11/19 09:00 Nasal Cannula 2.0 01/11/19 08:40 76 18 Nasal Cannula 3.0 32 01/11/19 08:40 Nasal Cannula 3.0 32 01/11/19 08:40 96 Nasal Cannula 3.0 32 01/11/19 08:00 97.5 67 21 138/67 (90) 93 01/11/19 07:44 68 01/11/19 05:42 156/68 01/11/19 04:00 68 01/11/19 04:00 98.1 69 18 156/64 (94) 100 01/11/19 00:00 98.6 68 18 160/67 (98) 100 01/11/19 00:00 70 01/10/19 21:00 Nasal Cannula 2.0 01/10/19 20:26 96 Nasal Cannula 3.0 32 01/10/19 20:26 Nasal Cannula 3.0 32 01/10/19 20:26 77 18 Nasal Cannula 3.0 32 01/10/19 20:00 99.5 76 17 145/71 (95) 100 01/10/19 20:00 78 01/10/19 17:42 150/74 01/10/19 16:26 98.2 69 18 165/61 (95) 95 01/10/19 16:00 98.1 75 21 150/74 (99) 98 01/10/19 15:53 72 01/10/19 12:45 97.1 75 21 121/57 (78) 90 01/10/19 12:32 121/57 01/10/19 12:10 74 Intake and Output 01/10/19 01/11/19 19:00 07:00 Intake Total 630 ml 50 ml Balance 630 ml 50 ml Intake Oral 630 ml 50 ml # Bowel Movements 4 1 Objective General Appearance: WNL HEENT: normocephalic, atraumatic Respiratory/Chest: chest wall non-tender, lungs clear Cardiovascular: normal peripheral pulses, regular rhythm Abdomen: normal bowel sounds, soft, non tender Genitourinary: normal external genitalia Extremities: no clubbing Current Medications Medications (Trade) Dose Ordered Sig/Steven Route PRN Reason Start Time Stop Time Status Last Admin Dose Admin Acetaminophen (Tylenol) 650 mg Q4H PRN ORAL Mild Pain (Pain Scale 1-3) 01/09/19 00:00 02/05/19 15:57 Acetaminophen (Tylenol) 650 mg Q4H PRN ORAL T>100.5 01/09/19 00:00 02/05/19 15:57 Acetaminophen/ Hydrocodone Bitart ([place] 5/325) 1 tab Q4H PRN ORAL Moderate Pain (Pain Scale 4-6) 01/09/19 00:00 01/13/19 15:58 Albuterol/ Ipratropium (Albuterol/ Ipratropium) 3 ml Q4H PRN HHN Shortness of Breath 01/09/19 00:00 01/11/19 15:58 Aspirin (ASA) 81 mg DAILY ORAL 01/10/19 09:00 02/09/19 08:59 01/11/19 09:09 Atorvastatin Calcium (Lipitor) 80 mg BEDTIME ORAL 01/09/19 21:00 02/06/19 20:59 01/10/19 22:02 Bacitracin/ Polymyxin B Sulfate (Polysporin Op Oint) 1 applic BEDTIME RIGHT EYE 01/09/19 21:00 01/14/19 20:59 01/10/19 22:06 Dextrose (Dextrose 50%) 25 ml Q30M PRN IV Hypoglycemia 01/09/19 01:45 02/08/19 01:44 Dextrose (Dextrose 50%) 50 ml Q30M PRN IV Hypoglycemia 01/09/19 01:45 02/08/19 01:44 Heparin Sodium (Porcine) (Heparin 5000 units/ml) 5,000 units EVERY 12 HOURS SUBQ 01/09/19 21:00 02/08/19 20:59 Hydralazine HCl (Apresoline) 25 mg Q4H PRN ORAL SBP > 155mmHg 01/09/19 00:00 02/06/19 15:58 Insulin Aspart (NovoLOG) BEFORE MEALS AND HS SUBQ 01/09/19 06:30 02/08/19 06:29 01/10/19 22:17 Lorazepam (Ativan 2mg/ml 1ml) 2 mg Q2H PRN IV agitation 01/09/19 00:00 01/13/19 15:59 Morphine Sulfate (Morphine Sulfate) 4 mg Q4H PRN IVP Severe Pain (Pain Scale 7-10) 01/09/19 00:00 01/13/19 15:59 Moxifloxacin HCl (Vigamox) 1 drop Q8HR LEFT EYE 01/08/19 22:30 01/14/19 21:59 01/11/19 05:38 Neomycin/ Polymyxin/ Dexamethasone (Maxitrol Opth Susp) 1 drop BEDTIME LEFT EYE 01/09/19 21:00 01/14/19 20:59 01/10/19 22:06 Nitroglycerin (Nitro-Bid) 1 inch TID@0600,1200,1800 TOPIC 01/09/19 06:00 02/06/19 17:59 01/11/19 05:42 Nitroglycerin (Ntg) 0.4 mg Q5MIN X 3 DOSES PRN SL Prn Chest Pain 01/08/19 22:30 02/05/19 12:29 Ondansetron HCl (Zofran) 4 mg Q4H PRN IVP Nausea & Vomiting 01/09/19 01:00 02/05/19 12:59 Pantoprazole (Protonix) 40 mg Q12HR ORAL 01/08/19 22:30 02/07/19 20:59 01/11/19 09:10 Prednisolone Acetate (Pred Forte) 1 drop QID BOTH EYES 01/08/19 22:30 02/06/19 17:59 01/11/19 09:11 Sevelamer Carbonate (Renvela) 1,600 mg THREE TIMES A DAY ORAL 01/08/19 22:30 02/07/19 08:59 01/11/19 09:09 Vitamin B Complex (Vitamin B Complex) 1 tab DAILY ORAL 01/09/19 09:00 02/07/19 08:59 01/11/19 09:10 Mirza Burt MD Jan 11, 2019 10:52
[2019-01-11 12:00] VITALS: BP 178/71
[2019-01-11] MEDS: HydrALAZINE 25mg tab ORAL PRN (12:59)
--- NOTE | 2019-01-11 13:58 | Nephrology Progress Note ---
Assessment/Plan Problem List: (1) ESRF (end stage renal failure) (2) Cardiac arrest (3) Diabetes mellitus (4) Non-ST elevation (NSTEMI) myocardial infarction Assessment ESRD s/p Cardiac Arrest Respiratory failure on Vent DM Plan doing well Dialysed today and 2 liters off add low dose Norvasc Post extubation care per RN Albumin bolus as needed dialysis next 01/11 done per cardiology and pulmonary advise Subjective ROS Limited/Unobtainable: No Constitutional: Reports: malaise Objective Objective Last 24 Hour Vital Signs Date Time Temp Pulse Resp B/P (MAP) Pulse Ox O2 Delivery O2 Flow Rate FiO2 01/11/19 12:59 178/71 01/11/19 12:09 178/71 01/11/19 12:00 98.2 76 20 178/71 (106) 95 01/11/19 09:00 Nasal Cannula 2.0 01/11/19 08:40 76 18 Nasal Cannula 3.0 32 01/11/19 08:40 Nasal Cannula 3.0 32 01/11/19 08:40 96 Nasal Cannula 3.0 32 01/11/19 08:00 97.5 67 21 138/67 (90) 93 01/11/19 07:44 68 01/11/19 05:42 156/68 01/11/19 04:00 68 01/11/19 04:00 98.1 69 18 156/64 (94) 100 01/11/19 00:00 98.6 68 18 160/67 (98) 100 01/11/19 00:00 70 01/10/19 21:00 Nasal Cannula 2.0 01/10/19 20:26 96 Nasal Cannula 3.0 32 01/10/19 20:26 Nasal Cannula 3.0 32 01/10/19 20:26 77 18 Nasal Cannula 3.0 32 01/10/19 20:00 99.5 76 17 145/71 (95) 100 01/10/19 20:00 78 01/10/19 17:42 150/74 01/10/19 16:26 98.2 69 18 165/61 (95) 95 01/10/19 16:00 98.1 75 21 150/74 (99) 98 01/10/19 15:53 72 Intake and Output 01/10/19 01/11/19 19:00 07:00 Intake Total 630 ml 50 ml Balance 630 ml 50 ml Intake Oral 630 ml 50 ml # Bowel Movements 4 1 Height (Feet): 5 Height (Inches): 1.00 Weight (Pounds): 156 General Appearance: no apparent distress Cardiovascular: normal rate Respiratory/Chest: decreased breath sounds Abdomen: soft Objective no change Wade Rivera MD Jan 11, 2019 13:57
--- NOTE | 2019-01-11 13:59 | Internal Med Progress Note ---
Subjective Date of Service: Jan 11, 2019 Physician Name Fabián Kwong Attending Physician Mirza Burt MD Current Medications Medications (Trade) Dose Ordered Sig/Steven Route PRN Reason Start Time Stop Time Status Last Admin Dose Admin Acetaminophen (Tylenol) 650 mg Q4H PRN ORAL Mild Pain (Pain Scale 1-3) 01/09/19 00:00 02/05/19 15:57 Acetaminophen (Tylenol) 650 mg Q4H PRN ORAL T>100.5 01/09/19 00:00 02/05/19 15:57 Acetaminophen/ Hydrocodone Bitart ([place] 5/325) 1 tab Q4H PRN ORAL Moderate Pain (Pain Scale 4-6) 01/09/19 00:00 01/13/19 15:58 Albuterol/ Ipratropium (Albuterol/ Ipratropium) 3 ml Q4H PRN HHN Shortness of Breath 01/09/19 00:00 01/11/19 15:58 Aspirin (ASA) 81 mg DAILY ORAL 01/10/19 09:00 02/09/19 08:59 01/11/19 09:09 Atorvastatin Calcium (Lipitor) 80 mg BEDTIME ORAL 01/09/19 21:00 02/06/19 20:59 01/10/19 22:02 Bacitracin/ Polymyxin B Sulfate (Polysporin Op Oint) 1 applic BEDTIME RIGHT EYE 01/09/19 21:00 01/14/19 20:59 01/10/19 22:06 Dextrose (Dextrose 50%) 25 ml Q30M PRN IV Hypoglycemia 01/09/19 01:45 02/08/19 01:44 Dextrose (Dextrose 50%) 50 ml Q30M PRN IV Hypoglycemia 01/09/19 01:45 02/08/19 01:44 Heparin Sodium (Porcine) (Heparin 5000 units/ml) 5,000 units EVERY 12 HOURS SUBQ 01/09/19 21:00 02/08/19 20:59 Hydralazine HCl (Apresoline) 25 mg Q4H PRN ORAL SBP > 155mmHg 01/09/19 00:00 02/06/19 15:58 01/11/19 12:59 Insulin Aspart (NovoLOG) BEFORE MEALS AND HS SUBQ 01/09/19 06:30 02/08/19 06:29 01/11/19 12:11 Lorazepam (Ativan 2mg/ml 1ml) 2 mg Q2H PRN IV agitation 01/09/19 00:00 01/13/19 15:59 Morphine Sulfate (Morphine Sulfate) 4 mg Q4H PRN IVP Severe Pain (Pain Scale 7-10) 01/09/19 00:00 01/13/19 15:59 Moxifloxacin HCl (Vigamox) 1 drop Q8HR LEFT EYE 01/08/19 22:30 01/14/19 21:59 01/11/19 12:59 Neomycin/ Polymyxin/ Dexamethasone (Maxitrol Opth Susp) 1 drop BEDTIME LEFT EYE 01/09/19 21:00 01/14/19 20:59 01/10/19 22:06 Nitroglycerin (Nitro-Bid) 1 inch TID@0600,1200,1800 TOPIC 01/09/19 06:00 02/06/19 17:59 01/11/19 12:09 Nitroglycerin (Ntg) 0.4 mg Q5MIN X 3 DOSES PRN SL Prn Chest Pain 01/08/19 22:30 02/05/19 12:29 Ondansetron HCl (Zofran) 4 mg Q4H PRN IVP Nausea & Vomiting 01/09/19 01:00 02/05/19 12:59 Pantoprazole (Protonix) 40 mg Q12HR ORAL 01/08/19 22:30 02/07/19 20:59 01/11/19 09:10 Prednisolone Acetate (Pred Forte) 1 drop QID BOTH EYES 01/08/19 22:30 02/06/19 17:59 01/11/19 12:08 Sevelamer Carbonate (Renvela) 1,600 mg THREE TIMES A DAY ORAL 01/08/19 22:30 02/07/19 08:59 01/11/19 12:07 Vitamin B Complex (Vitamin B Complex) 1 tab DAILY ORAL 01/09/19 09:00 02/07/19 08:59 01/11/19 09:10 Allergies: Coded Allergies: PENICILLINS (Unverified Allergy, Severe, 01/03/19) RASH ROS Limited/Unobtainable: No Constitutional: Reports: no symptoms HEENT: Reports: no symptoms Cardiovascular: Reports: no symptoms Respiratory: Reports: no symptoms Gastrointestinal/Abdominal: Reports: no symptoms Genitourinary: Reports: no symptoms Neurologic/Psychiatric: Reports: no symptoms Subjective 58 YO F admitted with retinal detachment. S/P retinal reattachment. Now Respiratory failure. Cover for Int Med-Dr Young Objective Last Vital Signs Date Time Temp Pulse Resp B/P (MAP) Pulse Ox O2 Delivery O2 Flow Rate FiO2 01/11/19 12:59 178/71 01/11/19 12:00 98.2 76 20 95 01/11/19 09:00 Nasal Cannula 2.0 01/11/19 08:40 32 Intake and Output 01/10/19 01/11/19 19:00 07:00 Intake Total 630 ml 50 ml Balance 630 ml 50 ml Intake Oral 630 ml 50 ml # Bowel Movements 4 1 Objective Objective General: A&O X 3, NAD, awake, alert, responsive. HEENT: NCAT, anicteric sclera, erythematous conjunctiva, PERRL, EOMI, eyes both covered. Neck: Supple, no significant jugular venous distention, Lungs: good respiratory affords, decreased air at the bases, no Wheeze or Rales. Heart: Regular rate and rhythm, normal S1/S2, no murmur, distant heart sounds Abdomen: soft, not tender, nondistended. Normoactive bowel sounds, obesity. Extremities: No Cyanosis , clubbing or edema, left upper extremity AV fistula with thrill.. Neuro: motor 5/5 all extremities, CN 2-12 intact. Skin: warm, no rash. Assessment/Plan Assessment/Plan . Assessment/Plan Assessment/Plan Assessment/Plan 1. Acute hypoxemic respiratory failure. 2. Hypoxemic arrest. 3. End-stage renal disease on hemodialysis. 4. Left eye retinal detachment. 5. Mild obesity. 6. Atherosclerotic heart disease, coronary artery disease. 7. Hypertension. 8. Diabetic type II. 9. Elevated troponin possible NSTEMI Plan: Follow-up with Dr. Burt recommendation for ventilation management. Follow-up with Dr. Rivera recommendation for dialysis. F/U with Dr. De La Cruz from cardiology. Monitor laboratory Follow-up with the glucose monitoring. Monitor blood pressure closely. DVT prophylaxis with SCD. CODE STATUS is full code at this time. PT Mobility, Penicillin allergy. Consider transfer to [facility] for cardiac catheterization. Fabián Kwong MD Jan 11, 2019 13:59
--- NOTE | 2019-01-11 15:11 | Cardiology Progress Note ---
Assessment/Plan Assessment/Plan 1. Hypoxic arrest. 2. Bradycardia, probably secondary to hypoxemia. 3. Diabetes mellitus. 4. Hypertension. 5. End-stage renal disease, on hemodialysis. 6. Peripheral neuropathy history. 7. Abn ekg trop min increased and again seems decreased concerning for acs denies any cp ekg is abn with new t wve changes may benefit from invasive eval in light of abn ekg echo performed to be reviewed will use ntp for now if any cp will start on anticoagulation keep on statin and asa on tele will see if need hmo hostpial tranfer or to [facility] name [facility] don [facility] transfer center d/w transfer center at [facility] many many pt ahead of her ihave asked asset protection manager to help transfer to another cath facility besides [facility] d/w trasfer center at [facility] they are working dorian bed for possible tod ay Subjective Cardiovascular: Denies: chest pain, lightheadedness, palpitations Respiratory: Denies: shortness of breath Gastrointestinal/Abdominal: Reports: abdominal pain - after taking medication Genitourinary: Denies: burning Objective Last 24 Hour Vital Signs Date Time Temp Pulse Resp B/P (MAP) Pulse Ox O2 Delivery O2 Flow Rate FiO2 01/11/19 14:21 74 154/72 01/11/19 12:59 178/71 01/11/19 12:09 178/71 01/11/19 12:00 98.2 76 20 178/71 (106) 95 01/11/19 11:40 72 01/11/19 09:00 Nasal Cannula 2.0 01/11/19 08:40 76 18 Nasal Cannula 3.0 32 01/11/19 08:40 Nasal Cannula 3.0 32 01/11/19 08:40 96 Nasal Cannula 3.0 32 01/11/19 08:00 97.5 67 21 138/67 (90) 93 01/11/19 07:44 68 01/11/19 05:42 156/68 01/11/19 04:00 68 01/11/19 04:00 98.1 69 18 156/64 (94) 100 01/11/19 00:00 98.6 68 18 160/67 (98) 100 01/11/19 00:00 70 01/10/19 21:00 Nasal Cannula 2.0 01/10/19 20:26 96 Nasal Cannula 3.0 32 01/10/19 20:26 Nasal Cannula 3.0 32 01/10/19 20:26 77 18 Nasal Cannula 3.0 32 01/10/19 20:00 99.5 76 17 145/71 (95) 100 01/10/19 20:00 78 01/10/19 17:42 150/74 01/10/19 16:26 98.2 69 18 165/61 (95) 95 01/10/19 16:00 98.1 75 21 150/74 (99) 98 01/10/19 15:53 72 General Appearance: no apparent distress, alert Neck: supple Cardiovascular: normal rate Respiratory/Chest: chest wall non-tender, lungs clear, normal breath sounds Extremities: no swelling Intake and Output 01/10/19 01/11/19 19:00 07:00 Intake Total 630 ml 50 ml Balance 630 ml 50 ml Intake Oral 630 ml 50 ml # Bowel Movements 4 1 Elias Blackmon MD Jan 11, 2019 15:11
--- NOTE | 2019-01-11 15:45 | NUR ---
PT Note PT brandon completed, treatment initiated. Patient has a wide base of support with postural sway noted, making her a t a risk for falls. Patient needs PT services to increase her muscle strength and balance to improve her safety in mobility and gait. Addendum: 01/11/19 at 1546 by SAADIA HERBERT PT Amended: Links added.
[2019-01-11 16:00] VITALS: BP 166/67
--- NOTE | 2019-01-11 19:30 | NUR ---
NURSE NOTES: pt in bed, at bedside. no acute distress noted and no c/o pain at this time. safety precaution on place call aid within pt's reach. education provided about using call aid when needing help. pt and verbalized understanding. will continue to monitor.
--- NOTE | 2019-01-11 19:38 | NUR ---
HAND-OFF: Report given to MELISSA Carlton.
[2019-01-11 20:00] VITALS: BP 138/62
[2019-01-11] MEDS: Polysporin Opth Oint 3.5gm RIGHT EYE SCH (21:12)
[2019-01-11] MEDS: Atorvastatin 80mg tab ORAL SCH (21:12)
[2019-01-11] MEDS: Maxitrol Opth Susp 5ml LEFT EYE SCH (21:13)
[2019-01-12] VITALS (7 sets, daily range): BP systolic 142–174; BP diastolic 62–74
--- NOTE | 2019-01-12 | NUR ---
NURSE NOTES: pt sleeping no acute distress or s/s of pain will continue to monitor
[2019-01-12] MEDS: NovoLOG Insulin Flexpen SUBQ SCH ×3 (06:20→17:20)
[2019-01-12] MEDS: Nitroglycerin 2% oint pkt TOPIC SCH ×3 (06:21→17:16)
[2019-01-12] MEDS: Vigamox Opth Soln 3ml LEFT EYE SCH ×2 (06:22→13:18)
--- NOTE | 2019-01-12 07:10 | NUR ---
NURSE NOTES: I received the patient awake and resting in bed. Patient alert and oriented x4. Patient does not display any signs of distress or SOB. Bed in the lowest position and call light within reach.
--- NOTE | 2019-01-12 07:12 | NUR ---
NURSE NOTES: pt reminded in stable condition during my shift. will endorse care plan to incoming nurse
--- NOTE | 2019-01-12 07:38 | NUR ---
HAND-OFF: Report given to Christy TORRES.
[2019-01-12 07:47] LABS: BASOPHILS % (AUTO) 1.4 % (0.0-2.0); EOSINOPHILS % (AUTO) 12.5 % (0.0-3.0); HEMATOCRIT 29.5 % (37.0-47.0); HEMOGLOBIN 9.8 G/DL (12.0-16.0); LYMPHOCYTES % (AUTO) 12.6 % (20.0-45.0); MEAN CORPUSCULAR VOLUME 96 FL (80-99); MONOCYTES % (AUTO) 9.9 % (1.0-10.0); NEUTROPHILS % (AUTO) 63.6 % (45.0-75.0); PLATELET COUNT 117 K/UL (150-450); RED BLOOD COUNT 3.09 M/UL (4.20-5.40); RED CELL DISTRIBUTION WIDTH 12.1 % (11.6-14.8); WHITE BLOOD COUNT 5.5 K/UL (4.8-10.8)
[2019-01-12] MEDS: Heparin 5000 units/ml inj SUBQ SCH (08:12)
--- NOTE | 2019-01-12 08:40 | NUR ---
NURSE NOTES: Dr. Blackmon made aware of patient's troponin level of 0.419 this morning. I will await any new orders.
[2019-01-12 08:43] LABS: ALANINE AMINOTRANSFERASE 15 U/L (12-78); ALBUMIN 3.5 G/DL (3.4-5.0); ALKALINE PHOSPHATASE 154 U/L (46-116); ANION GAP 13 mmol/L (5-15); ASPARTATE AMINO TRANSFERASE 20 U/L (15-37); BILIRUBIN,TOTAL 0.7 MG/DL (0.2-1.0); BLOOD UREA NITROGEN 44 mg/dL (7-18); CALCIUM 9.6 MG/DL (8.5-10.1); CARBON DIOXIDE 30 MMOL/L (21-32); CHLORIDE 96 MMOL/L (98-107); CREATININE 6.7 MG/DL (0.55-1.30); PHOSPHORUS 4.1 MG/DL (2.5-4.9); POTASSIUM 4.6 MMOL/L (3.5-5.1); SODIUM 139 MMOL/L (136-145)
[2019-01-12] MEDS: Vitamin B Complex Tab ORAL SCH (08:57)
[2019-01-12] MEDS: Pred Forte 1% Opth Susp 1ml BOTH EYES SCH ×3 (08:58→17:17)
[2019-01-12] MEDS: Aspirin Baby 81mg ORAL SCH (08:58)
--- NOTE | 2019-01-12 10:31 | Cardiology Progress Note ---
Assessment/Plan Assessment/Plan 1. Hypoxic arrest. 2. Bradycardia, probably secondary to hypoxemia. 3. Diabetes mellitus. 4. Hypertension. 5. End-stage renal disease, on hemodialysis. 6. Peripheral neuropathy history. 7. Abn ekg trop min increased and again seems decreased concerning for acs denies any cp ekg is abn with new t wve changes may benefit from invasive eval in light of abn ekg echo performed to be reviewed will use ntp for now if any cp will start on anticoagulation keep on statin and asa on tele will see if need hmo hostpial tranfer or to [facility] name place don [facility] transfer center d/w transfer center at [facility] many many pt ahead of her ihave asked project safety manager to help transfer to another cath facility besides [facility] per [facility] transfer center the y are waiting to transfer her after possible discharges form [facility] freeing up bed the y expect tod ay Subjective Cardiovascular: Denies: chest pain, lightheadedness Respiratory: Denies: shortness of breath Gastrointestinal/Abdominal: Reports: abdominal pain Genitourinary: Reports: burning Objective Last 24 Hour Vital Signs Date Time Temp Pulse Resp B/P (MAP) Pulse Ox O2 Delivery O2 Flow Rate FiO2 01/12/19 09:00 Nasal Cannula 2.0 01/12/19 08:57 74 151/72 01/12/19 08:00 98.5 74 19 151/72 (98) 98 01/12/19 07:34 73 01/12/19 06:21 147/62 01/12/19 04:49 73 01/12/19 04:00 98.1 73 22 147/62 (90) 98 01/12/19 00:00 98.2 78 17 142/63 (89) 100 01/12/19 00:00 74 01/11/19 21:00 Nasal Cannula 2.0 01/11/19 20:00 98.8 87 20 138/62 (87) 92 01/11/19 20:00 84 01/11/19 17:27 150/69 01/11/19 16:00 98.5 83 20 166/67 (100) 94 01/11/19 15:31 76 01/11/19 14:21 74 154/72 01/11/19 12:59 178/71 01/11/19 12:09 178/71 01/11/19 12:00 98.2 76 20 178/71 (106) 95 01/11/19 11:40 72 General Appearance: no apparent distress, alert Neck: supple Cardiovascular: normal rate, regular rhythm Respiratory/Chest: lungs clear Abdomen: normal bowel sounds, non tender, soft Extremities: no swelling Intake and Output 01/11/19 01/12/19 19:00 07:00 Intake Total 360 ml Balance 360 ml Intake Oral 360 ml # Bowel Movements 1 1 Laboratory Tests Test 01/12/19 06:40 White Blood Count 5.5 K/UL (4.8-10.8) Red Blood Count 3.09 M/UL (4.20-5.40) L Hemoglobin 9.8 G/DL (12.0-16.0) L Hematocrit 29.5 % (37.0-47.0) L Mean Corpuscular Volume 96 FL (80-99) Mean Corpuscular Hemoglobin 31.8 PG (27.0-31.0) H Mean Corpuscular Hemoglobin Concent 33.3 G/DL (32.0-36.0) Red Cell Distribution Width 12.1 % (11.6-14.8) Platelet Count 117 K/UL (150-450) L Mean Platelet Volume 8.1 FL (6.5-10.1) Neutrophils (%) (Auto) 63.6 % (45.0-75.0) Lymphocytes (%) (Auto) 12.6 % (20.0-45.0) L Monocytes (%) (Auto) 9.9 % (1.0-10.0) Eosinophils (%) (Auto) 12.5 % (0.0-3.0) H Basophils (%) (Auto) 1.4 % (0.0-2.0) Erythrocyte Sedimentation Rate 86 MM/HR (0-30) H Sodium Level 139 MMOL/L (136-145) Potassium Level 4.6 MMOL/L (3.5-5.1) Chloride Level 96 MMOL/L (98-107) L Carbon Dioxide Level 30 MMOL/L (21-32) Anion Gap 13 mmol/L (5-15) Blood Urea Nitrogen 44 mg/dL (7-18) H Creatinine 6.7 MG/DL (0.55-1.30) H Estimat Glomerular Filtration Rate 6.4 mL/min (>60) Glucose Level 124 MG/DL (74-106) H Calcium Level 9.6 MG/DL (8.5-10.1) Phosphorus Level 4.1 MG/DL (2.5-4.9) Magnesium Level 2.0 MG/DL (1.8-2.4) Total Bilirubin 0.7 MG/DL (0.2-1.0) Aspartate Amino Transf (AST/SGOT) 20 U/L (15-37) Alanine Aminotransferase (ALT/SGPT) 15 U/L (12-78) Alkaline Phosphatase 154 U/L (46-116) H Troponin I 0.419 ng/mL (0.000-0.056) Total Protein 7.1 G/DL (6.4-8.2) Albumin 3.5 G/DL (3.4-5.0) Globulin 3.6 g/dL Albumin/Globulin Ratio 1.0 (1.0-2.7) Elias Blackmon MD Jan 12, 2019 10:31
[2019-01-12] MEDS: HydrALAZINE 25mg tab ORAL PRN (12:18)
--- NOTE | 2019-01-12 15:04 | Internal Med Progress Note ---
Subjective Date of Service: Jan 12, 2019 Physician Name Fabián Kwong Attending Physician Mirza Burt MD Current Medications Medications (Trade) Dose Ordered Sig/Steven Route PRN Reason Start Time Stop Time Status Last Admin Dose Admin Acetaminophen (Tylenol) 650 mg Q4H PRN ORAL Mild Pain (Pain Scale 1-3) 01/09/19 00:00 02/05/19 15:57 Acetaminophen (Tylenol) 650 mg Q4H PRN ORAL T>100.5 01/09/19 00:00 02/05/19 15:57 Acetaminophen/ Hydrocodone Bitart ([place] 5/325) 1 tab Q4H PRN ORAL Moderate Pain (Pain Scale 4-6) 01/09/19 00:00 01/13/19 15:58 Amlodipine Besylate (Norvasc) 2.5 mg DAILY ORAL 01/11/19 14:00 02/10/19 13:59 01/12/19 08:57 Aspirin (ASA) 81 mg DAILY ORAL 01/10/19 09:00 02/09/19 08:59 01/12/19 08:58 Atorvastatin Calcium (Lipitor) 80 mg BEDTIME ORAL 01/09/19 21:00 02/06/19 20:59 01/11/19 21:12 Bacitracin/ Polymyxin B Sulfate (Polysporin Op Oint) 1 applic BEDTIME RIGHT EYE 01/09/19 21:00 01/14/19 20:59 01/11/19 21:12 Dextrose (Dextrose 50%) 25 ml Q30M PRN IV Hypoglycemia 01/09/19 01:45 02/08/19 01:44 Dextrose (Dextrose 50%) 50 ml Q30M PRN IV Hypoglycemia 01/09/19 01:45 02/08/19 01:44 Heparin Sodium (Porcine) (Heparin 5000 units/ml) 5,000 units EVERY 12 HOURS SUBQ 01/09/19 21:00 02/08/19 20:59 Hydralazine HCl (Apresoline) 25 mg Q4H PRN ORAL SBP > 155mmHg 01/09/19 00:00 02/06/19 15:58 01/12/19 12:18 Insulin Aspart (NovoLOG) BEFORE MEALS AND HS SUBQ 01/09/19 06:30 02/08/19 06:29 01/12/19 12:00 Lorazepam (Ativan 2mg/ml 1ml) 2 mg Q2H PRN IV agitation 01/09/19 00:00 01/13/19 15:59 Morphine Sulfate (Morphine Sulfate) 4 mg Q4H PRN IVP Severe Pain (Pain Scale 7-10) 01/09/19 00:00 01/13/19 15:59 Moxifloxacin HCl (Vigamox) 1 drop Q8HR LEFT EYE 01/08/19 22:30 01/14/19 21:59 01/12/19 13:18 Neomycin/ Polymyxin/ Dexamethasone (Maxitrol Opth Susp) 1 drop BEDTIME LEFT EYE 01/09/19 21:00 01/14/19 20:59 01/11/19 21:13 Nitroglycerin (Nitro-Bid) 1 inch TID@0600,1200,1800 TOPIC 01/09/19 06:00 02/06/19 17:59 01/12/19 12:18 Nitroglycerin (Ntg) 0.4 mg Q5MIN X 3 DOSES PRN SL Prn Chest Pain 01/08/19 22:30 02/05/19 12:29 Ondansetron HCl (Zofran) 4 mg Q4H PRN IVP Nausea & Vomiting 01/09/19 01:00 02/05/19 12:59 Pantoprazole (Protonix) 40 mg Q12HR ORAL 01/08/19 22:30 02/07/19 20:59 01/12/19 08:57 Prednisolone Acetate (Pred Forte) 1 drop QID BOTH EYES 01/08/19 22:30 02/06/19 17:59 01/12/19 12:18 Sevelamer Carbonate (Renvela) 1,600 mg THREE TIMES A DAY ORAL 01/08/19 22:30 02/07/19 08:59 01/12/19 12:18 Vitamin B Complex (Vitamin B Complex) 1 tab DAILY ORAL 01/09/19 09:00 02/07/19 08:59 01/12/19 08:57 Allergies: Coded Allergies: PENICILLINS (Unverified Allergy, Severe, 01/03/19) RASH ROS Limited/Unobtainable: No Constitutional: Reports: no symptoms HEENT: Reports: no symptoms Cardiovascular: Reports: no symptoms Respiratory: Reports: no symptoms Gastrointestinal/Abdominal: Reports: no symptoms Genitourinary: Reports: no symptoms Neurologic/Psychiatric: Reports: no symptoms Subjective 58 YO F admitted with retinal detachment. S/P retinal reattachment. Now Respiratory failure. S/P cardiac arrest. Cover for [facility] Med-Dr Young. Await transfer to [facility] Objective Last Vital Signs Date Time Temp Pulse Resp B/P (MAP) Pulse Ox O2 Delivery O2 Flow Rate FiO2 01/12/19 14:27 77 168/74 (105) 01/12/19 12:00 98.0 18 98 01/12/19 09:00 Nasal Cannula 2.0 01/11/19 08:40 32 Laboratory Tests Test 01/12/19 06:40 White Blood Count 5.5 K/UL (4.8-10.8) Red Blood Count 3.09 M/UL (4.20-5.40) L Hemoglobin 9.8 G/DL (12.0-16.0) L Hematocrit 29.5 % (37.0-47.0) L Mean Corpuscular Volume 96 FL (80-99) Mean Corpuscular Hemoglobin 31.8 PG (27.0-31.0) H Mean Corpuscular Hemoglobin Concent 33.3 G/DL (32.0-36.0) Red Cell Distribution Width 12.1 % (11.6-14.8) Platelet Count 117 K/UL (150-450) L Mean Platelet Volume 8.1 FL (6.5-10.1) Neutrophils (%) (Auto) 63.6 % (45.0-75.0) Lymphocytes (%) (Auto) 12.6 % (20.0-45.0) L Monocytes (%) (Auto) 9.9 % (1.0-10.0) Eosinophils (%) (Auto) 12.5 % (0.0-3.0) H Basophils (%) (Auto) 1.4 % (0.0-2.0) Erythrocyte Sedimentation Rate 86 MM/HR (0-30) H Sodium Level 139 MMOL/L (136-145) Potassium Level 4.6 MMOL/L (3.5-5.1) Chloride Level 96 MMOL/L (98-107) L Carbon Dioxide Level 30 MMOL/L (21-32) Anion Gap 13 mmol/L (5-15) Blood Urea Nitrogen 44 mg/dL (7-18) H Creatinine 6.7 MG/DL (0.55-1.30) H Estimat Glomerular Filtration Rate 6.4 mL/min (>60) Glucose Level 124 MG/DL (74-106) H Calcium Level 9.6 MG/DL (8.5-10.1) Phosphorus Level 4.1 MG/DL (2.5-4.9) Magnesium Level 2.0 MG/DL (1.8-2.4) Total Bilirubin 0.7 MG/DL (0.2-1.0) Aspartate Amino Transf (AST/SGOT) 20 U/L (15-37) Alanine Aminotransferase (ALT/SGPT) 15 U/L (12-78) Alkaline Phosphatase 154 U/L (46-116) H Troponin I 0.419 ng/mL (0.000-0.056) Total Protein 7.1 G/DL (6.4-8.2) Albumin 3.5 G/DL (3.4-5.0) Globulin 3.6 g/dL Albumin/Globulin Ratio 1.0 (1.0-2.7) Intake and Output 01/11/19 01/12/19 19:00 07:00 Intake Total 360 ml Balance 360 ml Intake Oral 360 ml # Bowel Movements 1 1 Objective Objective General: A&O X 3, NAD, awake, alert, responsive. HEENT: NCAT, anicteric sclera, erythematous conjunctiva, PERRL, EOMI, eyes both covered. Neck: Supple, no significant jugular venous distention, Lungs: good respiratory affords, decreased air at the bases, no Wheeze or Rales. Heart: Regular rate and rhythm, normal S1/S2, no murmur, distant heart sounds Abdomen: soft, not tender, nondistended. Normoactive bowel sounds, obesity. Extremities: No Cyanosis , clubbing or edema, left upper extremity AV fistula with thrill.. Neuro: motor 5/5 all extremities, CN 2-12 intact. Skin: warm, no rash. Assessment/Plan Assessment/Plan . Assessment/Plan Assessment/Plan Assessment/Plan 1. Acute hypoxemic respiratory failure. 2. Hypoxemic arrest. 3. End-stage renal disease on hemodialysis. 4. Left eye retinal detachment. 5. Mild obesity. 6. Atherosclerotic heart disease, coronary artery disease. 7. Hypertension. 8. Diabetic type II. 9. Elevated troponin possible NSTEMI Plan: Follow-up with Dr. Burt recommendation for ventilation management. Follow-up with Dr. Rivera recommendation for dialysis. F/U with Dr. De La Cruz from cardiology. Monitor laboratory Follow-up with the glucose monitoring. Monitor blood pressure closely. DVT prophylaxis with SCD. CODE STATUS is full code at this time. PT Mobility, Penicillin allergy. Await transfer to [facility] for cardiac catheterization. Fabián wKong MD Jan 12, 2019 15:04
--- NOTE | 2019-01-12 15:35 | Nephrology Progress Note ---
Assessment/Plan Problem List: (1) ESRF (end stage renal failure) (2) Cardiac arrest (3) Diabetes mellitus (4) Non-ST elevation (NSTEMI) myocardial infarction Assessment ESRD s/p Cardiac Arrest Respiratory failure on Vent DM Plan doing well Dialysed 01/11 next 01/14 add low dose Norvasc Post extubation care per RN Albumin bolus as needed dialysis next 01/11 done per cardiology and pulmonary advise Subjective ROS Limited/Unobtainable: No Constitutional: Reports: malaise Objective Objective Last 24 Hour Vital Signs Date Time Temp Pulse Resp B/P (MAP) Pulse Ox O2 Delivery O2 Flow Rate FiO2 01/12/19 14:27 77 168/74 (105) 01/12/19 12:18 174/73 01/12/19 12:18 174/73 01/12/19 12:00 98.0 75 18 174/73 (106) 98 01/12/19 11:38 78 01/12/19 09:00 Nasal Cannula 2.0 01/12/19 08:57 74 151/72 01/12/19 08:00 98.5 74 19 151/72 (98) 98 01/12/19 07:34 73 01/12/19 06:21 147/62 01/12/19 04:49 73 01/12/19 04:00 98.1 73 22 147/62 (90) 98 01/12/19 00:00 98.2 78 17 142/63 (89) 100 01/12/19 00:00 74 01/11/19 21:00 Nasal Cannula 2.0 01/11/19 20:00 98.8 87 20 138/62 (87) 92 01/11/19 20:00 84 01/11/19 17:27 150/69 01/11/19 16:00 98.5 83 20 166/67 (100) 94 Intake and Output 01/11/19 01/12/19 19:00 07:00 Intake Total 360 ml Balance 360 ml Intake Oral 360 ml # Bowel Movements 1 1 Laboratory Tests 01/12/19 06:40: White Blood Count 5.5, Red Blood Count 3.09L, Hemoglobin 9.8L, Hematocrit 29.5L , Mean Corpuscular Volume 96, Mean Corpuscular Hemoglobin 31.8H, Mean Corpuscular Hemoglobin Concent 33.3, Red Cell Distribution Width 12.1, Platelet Count 117L, Mean Platelet Volume 8.1, Neutrophils (%) (Auto) 63.6, Lymphocytes ( %) (Auto) 12.6L, Monocytes (%) (Auto) 9.9, Eosinophils (%) (Auto) 12.5H, Basophils (%) (Auto) 1.4, Erythrocyte Sedimentation Rate 86H, Sodium Level 139, Potassium Level 4.6, Chloride Level 96L, Carbon Dioxide Level 30, Anion Gap 13, Blood Urea Nitrogen 44H, Creatinine 6.7H, Estimat Glomerular Filtration Rate 6.4 , Glucose Level 124H, Calcium Level 9.6, Phosphorus Level 4.1, Magnesium Level 2.0, Total Bilirubin 0.7, Aspartate Amino Transf (AST/SGOT) 20, Alanine Aminotransferase (ALT/SGPT) 15, Alkaline Phosphatase 154H, Troponin I 0.419H, Total Protein 7.1, Albumin 3.5, Globulin 3.6, Albumin/Globulin Ratio 1.0 Height (Feet): 5 Height (Inches): 1.00 Weight (Pounds): 157 General Appearance: no apparent distress Cardiovascular: normal rate Respiratory/Chest: decreased breath sounds Abdomen: soft Objective no change Wade Rivera MD Jan 12, 2019 15:35
--- NOTE | 2019-01-12 19:34 | NUR ---
HAND-OFF: Report given to MELISSA Smith.
--- NOTE | 2019-01-12 19:44 | NUR ---
NURSE NOTES: RECEIVED PATIENT RESTING IN BED, NO COMPLAINTS OF PAIN AT THIS TIME. FALL PRECAUTIONS IN PLACE: CALL LIGHT AND BEDSIDE TABLE WITHIN REACH AND BED IN LOW POSITION. ENDORSED BY OUTGOING RN PATIENT WAITING FOR AMBULANCE TO BE TRANSFERRED TO [facility].
--- NOTE | 2019-01-12 20:46 | NUR ---
NURSE NOTES: PATIENT TRANSFERRED TO [facility] VIA AMBULANCE. PATIENT DENIES CHEST PAIN OR SOB. PATIENT HAS NO BELONGINGS UPON TRANSFER. PATIENT'S NOTIFIED.
--- NOTE | 2019-01-13 17:32 | Discharge Summary ---
Discharge Summary Discharge Summary _ DATE OF ADMISSION: 01/06/2019 DATE OF DISCHARGE: 01/12/2019 DISCHARGED BY: Dr. Burt REASON FOR ADMISSION: 58 years old female with long history of severe proliferative diabetic retinopathy, severe diabetes since 1994, hypertension, end-stage renal disease, on hemodialysis, was recently, about 2 weeks ago, operated at [facility] for long-standing dense vitreous hemorrhage in the left eye. The surgery went well, with the retina noted to have been flat at the end of the procedure. At her 2-week postoperative visit, she was found to have elevation of the retina around the posterior pole , suspected to result from an opening of a prior laser scar. Based on this, she was admitted to repeat vitrectomy with placement of silicone oil and endolaser. CONSULTANTS: order processing clerk Dr. Blackmon pulmonary Dr. Burt elementary tutor Dr. Rivera global compensation manager Dr. Sneed [facility] COURSE: Patient was admitted for planned left eye surgery. Radio Station Manager closely followed. Risk and benefits of procedure were explained to the patient, and consent was obtained. Patient was about to undergo operative procedure , but unfortunately developed hypoxemia on induction of LMA anesthesia. The oxygen saturation dropped after induction , patient became bradycardic, atropine was given without much effect , and subsequently epinephrine was given. Procedure was canceled. Patient was intubated and transferred to ICU. Cardiology, pulmonology, and nephrology consults were requested. Customer Pricing Manager followed. Ventilator support provided . Pulmonary toilet provided as needed. Initial chest x-ray revealed satisfactory position of endotracheal tube. NG tube was inserted for medication and nutritional support. Carotid duplex was essentially negative. Patient was extubated on 01/07. Spray Painter Helper followed. The second troponin was positive 0.289. No evidence of wall motion abnormality. Moderately elevated left atrial pressure grade 2. Mild mitral regurgitation and tricuspid regurgitation. Right ventricular systolic pressure of 44 consistent with mild pulmonary hypertension. Telemetry showed sinus rhythm. EKG on 01/07 revealed normal sinus rhythm with prolonged QT interval and repeated next day on 01/08 EKG was abnormal, revealing normal sinus rhythm with new T wave changes. Patient was on antiplatelet therapy with aspirin and statin. Lipid panel was stable. Nitro-paste provided. Patient denied any chest pain. Per order processing clerk , patient will benefit from invasive evaluation in light of abnormal EKG. Blood pressure was managed with calcium channel kenan. DVT prophylaxis provided. Plan was if any chest pain develop, patient would be started on anticoagulation. Serial troponin were closely followed. Troponin pattern revealed first troponin negative, second two with minimal elevation-0.289 and 0.150 , then the next two- normal, and the next two elevated and trending down from 0.982 to 0.419. Patient continued to decline chest pain. Bradycardia long resolved. Patient was placed on the waiting list for transfer to facility with cardiac catheterization laboratory. Computer Systems Technician seen and evaluated patient. Hemodialysis was scheduled with close monitoring of volumes and cardiorenal parameters. Electrolytes corrected as needed. Hyperkalemia corrected. Prior to discharge potassium 4.6. Hemodialysis was provided while patient was in the hospital. Patient was working with physical therapist, Fall precautions maintained. Blood sugar was managed with sliding scale of insulin. Neurontin continued. Supportive care provided. Pain management was addressed. Supplemental oxygen titrated to keep FiO2 above 90%. Pulse oximetry prior to transfer was stable on 2 L of oxygen via nasal cannula. Radio Station Manager followed. To reiterate, operation was aborted because of hypoxia and bradycardia. Patient was advised that the retinal detachment will need to be revisited with the procedure, included injection of silicone oil. Patient will be seen in the office as soon as medically cleared. On 01/12 bed became available at [facility] for transfer for cardiac catheterization. Patient subsequently was transferred via [facility] ambulance. FINAL DIAGNOSES: Posterior retinal detachment left eye after complicated vitrectomy left eye Hypoxic arrest Elevated troponin Possible NSTEMI Bradycardia probably secondary to hypoxemia End-stage renal disease, on hemodialysis Peripheral neuropathy Hypertension Diabetes mellitus DISCHARGE MEDICATIONS: See Medication Reconciliation list. DISCHARGE INSTRUCTIONS: Patient was transferred to [facility] for cardiac catheterization and further management. I have been assigned to dictate discharge summary for this account. I was not involved in the patient's management. Christina Leahy NP Jan 13, 2019 17:32
--- NOTE | 2019-01-14 19:16 | Diagnostic Imaging Report ---
APPROVED REPORT CPT Code: 62100 Present Symptoms Shortness of breath BILATERAL: Imaging reveals a patent deep venous system bilaterally. There is no evidence of thrombus within the common femoral, superficial femoral, or popliteal veins. The greater saphenous veins are within normal limits. Doppler indicates normal spontaneous flow within these segments. The calf veins were not well visualized.
--- NOTE | 2019-01-14 19:16 | Diagnostic Imaging Report ---
APPROVED REPORT CPT Code: 63119 Vascular Symptoms Comments: Altered LOC Technically difficult study due to patients altered mental status. Hx of left upper arm AV fistula Doppler Spectral Velocity Analysis RightLeft BILATERAL: CCA/BULB - Imaging reveals irregular, minimal plaque in both carotid bulbs. arteries. The Doppler spectral flow analysis is within normal limits throughout the internal and external carotid arteries.VERTEBRAL/SUBCLAVIAN- The right vertebral and right and left subclavian arteries are within normal limits. The left vertebral artery was not well visualized.
== END 2019-01-12 20:50 | disposition short-term general hospital (02) | DRG 208 ==
LOC: SUR 06:47 → ICU 12:13 → 4E 01-08 15:20 → 2E 01-08 22:29
PROC: 0BH17EZ Insertion of Endotracheal Airway into Trachea, Via Natural or Artificial Opening (ICD-10-PCS; principal; 2019-01-06 09:30)
PROC: 5A1945Z Respiratory Ventilation, 24-96 Consecutive Hours (ICD-10-PCS; principal; 2019-01-06 09:30)
PROC: 3E0 Administration, Physiological Systems and Anatomical Regions, Introduction (ICD-10-PCS; principal; 2019-01-06 09:30)
PROC: 5A1D70Z Performance of Urinary Filtration, Intermittent, Less than 6 Hours Per Day (ICD-10-PCS; principal; 2019-01-06 09:30)
DX: J96.01 Acute respiratory failure with hypoxia (principal); I46.9 Cardiac arrest, cause unspecified; N18.6 End stage renal disease; I21.4 Non-ST elevation (NSTEMI) myocardial infarction; H33.8 Other retinal detachments; I12.0 Hypertensive chronic kidney disease with stage 5 chronic kidney disease or end stage renal disease; Z99.2 Dependence on renal dialysis; I25.10 Atherosclerotic heart disease of native coronary artery without angina pectoris; E11.3592 Type 2 diabetes mellitus with proliferative diabetic retinopathy without macular edema, left eye; E11.42 Type 2 diabetes mellitus with diabetic polyneuropathy; E11.22 Type 2 diabetes mellitus with diabetic chronic kidney disease; R00.1 Bradycardia, unspecified; E66.9 Obesity, unspecified; Z68.29 Body mass index [BMI] 29.0-29.9, adult; E87.5 Hyperkalemia
CPT/HCPCS: 36415; 71045; 74018; 80053; 80061; 80076; 82550; 82607; 82962; 82977; 83036; 83615; 83735; 83880; 84100; 84132; 84443; 84484; 84550; 85007; 85025; 85610; 85651; 85730; 86140; 93005; 93306; 93880; 93970; 94002; 94003; 94150; 94664; 94760; J1815; J2250